=== PATIENT | male | born 1950 | race Caucasian/White ===

== ENCOUNTER 2019-12-04 08:54 | Outpatient (NON) | payer MEDICARE, OTHER, SELFPAY ==
[2019-12-04 23:30] LABS: SARS-CoV-2 RNA PCR Positive
== END 2020-06-13 10:41 | disposition home or self-care (01) ==
PROVIDERS: Visit Provider Family Medicine
DX: U07.1 COVID-19 (principal)
CPT/HCPCS: 87635; C9803; U0003

== ENCOUNTER 2020-01-17 02:33 | Outpatient (CLI) | payer MEDICARE, OTHER, SELFPAY ==
[2020-01-17 16:34] LABS: SARS-CoV-2 RNA PCR Negative
== END 2020-01-17 02:34 | disposition home or self-care (01) ==
LOC: ANHCOVIDDT 02:33
PROVIDERS: PCP Family Medicine; Visit Provider Internal Medicine Gastroenterology
DX: Z01.818 Encounter for other preprocedural examination (principal); Z20.828 Contact with and (suspected) exposure to other viral communicable diseases
CPT/HCPCS: 87635; C9803; U0003

== ENCOUNTER 2020-01-19 00:15 | Day surgery (SDC) | payer MEDICARE, OTHER, SELFPAY ==
--- NOTE | 2020-01-19 08:25 | WPDGICN ---
Assessment and Plan Assessment and plan (1) History of colon polyps: Code(s): Z86.010 - Personal history of colonic polyps Status: Acute Assessment and Plan: Patient is had colon polyps in the past on several occasions. Plan is for follow-up colonoscopy at this time. In that intervals in the future. (2) GERD (gastroesophageal reflux disease): Code(s): K21.9 - Gastro-esophageal reflux disease without esophagitis Status: Acute Assessment and Plan: Patient has a history of nocturnal heartburn. Recently has begun to have dysphagia. Plan is for Protonix 40 mg once daily before meals. Second doses allowed if he has breakthrough heartburn. Follow-up EGD is advised because of dysphagia this will be arranged electively as an outpatient. GI Consult Note Consult date/time: 01/19/20 08:25 HPI: Malik Ann is a 69 year old male seen in evaluation at the request of Dr Tariq Lambert. Patient has had a history of colon polyps in the past. Most recent exam was 6 years ago. Patient's current weight appetite bowel movements are normal. He denies any blood in his stools he has had no abdominal pain is weight has remained stable. Patient does have a history of acid reflux. He mainly gets heartburn often it early in the morning at 4:00 a.m.. He currently takes Protonix 40 mg daily at different times of the day sometimes will take a 2nd 1 for relief of symptoms. He recently has begun to notice difficulty swallowing with both solids and liquids. Occasionally will have significant phlegm production. He denies any weight loss or bleeding Review of Systems Review of Systems: All systems reviewed & are unremarkable except as noted in HPI and below [facility] Past Medical History Medical History COVID-19 Obesity (BMI 30.0-34.9) Social History Social History Smoking packs per day: 2 Smoking cigarettes per day: 40.0 Years smoked: 7 Smoking pack-years: 14.00 Smoking status: Former smoker Tobacco type: cigarettes Smoking end date: 04/28/71 Alcohol intake: current Drinks per week: 6 Substance use: never Living arrangements: with family Gender identity (if verbalized by the patient): Male Spiritual care concerns: No Meds Home Medications and Allergies Home Medications Medication Instructions Recorded Confirmed Type pantoprazole 40 mg tablet,delayed 40 mg PO QAM #90 tablet 04/29/19 01/19/20 Rx release metformin 500 mg tablet,extended 500 mg PO DAILY #90 tablet 06/16/19 01/19/20 Rx release 24 hr lisinopril 10 mg tablet 10 mg PO DAILY #90 tablet 10/04/19 01/19/20 Rx amlodipine 5 mg tablet 5 mg PO DAILY #90 tablet 12/15/19 01/19/20 Rx hydrochlorothiazide 12.5 mg capsule 12.5 mg PO DAILY #90 cap 12/15/19 01/19/20 Rx albuterol sulfate 90 mcg/actuation 2 puff INHALATION Q4H PRN gm 12/24/19 01/19/20 History aerosol inhaler aspirin 81 mg tablet,delayed 81 mg PO DAILY 12/24/19 01/19/20 History release cholecalciferol (vitamin D3) 50 50 mcg PO DAILY 12/24/19 01/19/20 History mcg (2,000 unit) capsule metoprolol succinate 50 mg 100 mg PO DAILY #225 tablet 12/24/19 01/19/20 Rx tablet,extended release 24 hr Allergies Allergy/AdvReac Type Severity Reaction Status Date / Time No Known Allergies Allergy Verified 01/19/20 08:21 Exam Narrative: Exam Narrative: physical exam reveals patient to be alert. Vital signs stable. HEENT exam unremarkable. Lungs are clear to auscultation and percussion. Heart is without murmur or extra sounds. Abdominal exam bowel sounds are present soft nontender with no hepatosplenomegaly. Digital external rectal exam normal.
[2020-01-19 08:28] VITALS: BP 147/67; PULSE 52; RESP 16; TEMP 36.6; O2SAT 100; BMI 32.1
[2020-01-19] MEDS: LACTATED RINGERS 1,000 ML 150 ML IV CONT (08:43)
[2020-01-19 08:46] LABS: Glucose Point of Care 111 (65-105)
--- NOTE | 2020-01-19 08:47 | P.PNAN_ITS ---
Anes - Initial Pre Proc Eval Procedure: Operation Date: 01/19/20 09:00 Proposed Procedures p Screening Colonoscopy - Renaldo Sorensen MD Date/Time: 01/19/20 08:47 Surgeon: Renaldo Sorensen MD Pre Op Diagnosis: Hx Colon Polyps Patient Data Age: 69 Gender: M Height: 5 ft 10 in Weight: 101.6 kg Last Vital Signs Temp 98 F 01/19/20 08:28 Pulse 52 L 01/19/20 08:28 Resp 16 01/19/20 08:28 BP 147/67 H 01/19/20 08:28 Pulse Ox 100 01/19/20 08:28 Allergies Allergy/AdvReac Type Severity Reaction Status Date / Time No Known Allergies Allergy Verified 01/19/20 08:21 Home Medications Medication Instructions Recorded Confirmed Type pantoprazole 40 mg tablet,delayed 40 mg PO QAM #90 tablet 04/29/19 01/19/20 Rx release metformin 500 mg tablet,extended 500 mg PO DAILY #90 tablet 06/16/19 01/19/20 Rx release 24 hr lisinopril 10 mg tablet 10 mg PO DAILY #90 tablet 10/04/19 01/19/20 Rx amlodipine 5 mg tablet 5 mg PO DAILY #90 tablet 12/15/19 01/19/20 Rx hydrochlorothiazide 12.5 mg capsule 12.5 mg PO DAILY #90 cap 12/15/19 01/19/20 Rx albuterol sulfate 90 mcg/actuation 2 puff INHALATION Q4H PRN gm 12/24/19 01/19/20 History aerosol inhaler aspirin 81 mg tablet,delayed 81 mg PO DAILY 12/24/19 01/19/20 History release cholecalciferol (vitamin D3) 50 50 mcg PO DAILY 12/24/19 01/19/20 History mcg (2,000 unit) capsule metoprolol succinate 50 mg 100 mg PO DAILY #225 tablet 12/24/19 01/19/20 Rx tablet,extended release 24 hr Laboratory Tests 01/19/20 08:41 POC Capillary Glucose 111 mg/dl H mg/dl (65-105) Patient hx anesthesia problems: none Family hx anesthesia problems: none PMFSH Past Medical History Medical History (Updated 01/19/20 @ 08:47 by David Nolasco MD) COVID-19 Diabetes Essential (primary) hypertension GERD (gastroesophageal reflux disease) Obesity (BMI 30.0-34.9) Social History Social History Smoking packs per day: 2 Smoking cigarettes per day: 40.0 Years smoked: 7 Smoking pack-years: 14.00 Smoking status: Former smoker Tobacco type: cigarettes Smoking end date: 04/28/71 Alcohol intake: current Drinks per week: 6 Substance use: never Living arrangements: with family Gender identity (if verbalized by the patient): Male Spiritual care concerns: No Anes - Eval Final PreProcedure Day of Procedure 01/19/20 08:47 Patient weight: overweight Heart: regular rate and rhythm Lungs: clear to auscultation Airway: Mallampati scale class II Neurological: alert and oriented Last oral intake: >/= 8 hours ASA classification: III Emergent: no Anesthetic plan: proceed Anesthesia type and monitoring: general GIVS and standard monitoring Informed Consent: The patient's anesthetic plan and its attendant risks and benefits were discussed with the patient/family/POA. Questions were solicited and answers provided to the satisfaction of the patient/family/POA.
[2020-01-19 09:15] VITALS: BP 119/69; PULSE 54; RESP 19; O2SAT 95
[2020-01-19 09:25] VITALS: BP 126/64; PULSE 55; RESP 19; O2SAT 93
[2020-01-19 09:35] VITALS: BP 131/71; PULSE 56; RESP 21; O2SAT 94
== END 2020-01-19 09:41 | disposition home or self-care (01) ==
PROVIDERS: PCP Family Medicine; Visit Provider Internal Medicine Gastroenterology
PROC: 0DJD8ZZ Inspection of Lower Intestinal Tract, Via Natural or Artificial Opening Endoscopic (ICD-10-PCS; CPT 45378; principal; 2020-01-19 09:00)
DX: Z12.11 Encounter for screening for malignant neoplasm of colon (principal); K57.30 Diverticulosis of large intestine without perforation or abscess without bleeding; K64.8 Other hemorrhoids; Z86.010 Personal history of colon polyps; K21.9 Gastro-esophageal reflux disease without esophagitis; E66.9 Obesity, unspecified; Z68.32 Body mass index [BMI] 32.0-32.9, adult; E11.9 Type 2 diabetes mellitus without complications; I10 Essential (primary) hypertension; Z79.84 Long term (current) use of oral hypoglycemic drugs
CPT/HCPCS: G0105; J2001; J2704; J7120

== ENCOUNTER → 2020-08-05 00:54 | Outpatient (CLI) | payer MEDICARE, OTHER, SELFPAY ==
[2020-08-05 18:53] LABS: SARS-CoV-2 RNA PCR Negative
== END ==
PROVIDERS: PCP Family Medicine; Visit Provider Internal Medicine Gastroenterology
DX: Z01.812 Encounter for preprocedural laboratory examination (principal); Z20.822 Contact with and (suspected) exposure to COVID-19
CPT/HCPCS: C9803; U0003; U0005

== ENCOUNTER 2020-08-08 02:19 | Day surgery (SDC) | payer MEDICARE, OTHER, SELFPAY ==
[2020-07-31 13:33] VITALS: BMI 30.9
[2020-08-08 10:13] VITALS: BP 135/63; PULSE 51; RESP 18; TEMP 35.6; O2SAT 98; BMI 34.0
[2020-08-08 10:26] LABS: Glucose Point of Care 99 (65-105)
[2020-08-08] MEDS: LACTATED RINGERS 1,000 ML 150 ML IV CONT (10:29)
--- NOTE | 2020-08-08 10:33 | PM.HPGS ---
History of Present Illness History of Present Illness Consent: Risks, benefits, and alternatives have been discussed and questions answered. Patient agrees to proceed with procedure. Chief complaint: GERD, dysphagia Narrative: Malik Ann is a 70 year old male with long history of acid reflux. Pantoprazole has helped control most of his heartburn but he is he having increasing episodes of regurgitation which results in choking at times. Also he has had dysphagia. This is primarily for liquids where he feels his throat or esophagus suddenly tighten up. Solid food seems to go down fairly well Review of Systems Review of Systems: All systems reviewed & are unremarkable except as noted in HPI and below PMFSH Past Medical History Medical History COVID-19 Diabetes Essential (primary) hypertension GERD (gastroesophageal reflux disease) Obesity (BMI 30.0-34.9) Family History Family History Father Diabetes mellitus Family history of Parkinson's disease Sibling Family history of lupus erythematosus Other Family history of arthritis Family history of chronic obstructive pulmonary disease Social History Social History Smoking packs per day: 2 Smoking cigarettes per day: 40.0 Years smoked: 7 Smoking pack-years: 14.00 Smoking status: Never smoker Tobacco type: cigarettes Smoking end date: 04/28/71 Alcohol intake: current Drinks per week: 10 Substance use: never Living arrangements: with family Gender identity (if verbalized by the patient): Male Spiritual care concerns: No Meds Home Medications and Allergies Home Medications Medication Instructions Recorded Confirmed Type hydrochlorothiazide 12.5 mg capsule 12.5 mg PO DAILY #90 cap 12/15/19 07/31/20 Rx albuterol sulfate 90 mcg/actuation 2 puff INHALATION Q4H PRN gm 12/24/19 07/31/20 History aerosol inhaler aspirin 81 mg tablet,delayed 81 mg PO DAILY 12/24/19 07/31/20 History release cholecalciferol (vitamin D3) 50 50 mcg PO DAILY 12/24/19 07/31/20 History mcg (2,000 unit) capsule metoprolol succinate 50 mg See Rx Instructions .ROUTE 03/03/20 07/31/20 Rx tablet,extended release 24 hr .COMPLEX #225 tablet amlodipine 5 mg tablet See Rx Instructions .ROUTE 06/12/20 07/31/20 Rx .COMPLEX #90 tablet metformin 500 mg tablet,extended 500 mg PO DAILY #90 tablet 06/12/20 07/31/20 Rx release 24 hr lisinopril 10 mg tablet 10 mg PO DAILY #90 tablet 06/22/20 07/31/20 Rx pantoprazole 40 mg tablet,delayed See Rx Instructions .ROUTE 07/10/20 07/31/20 Rx release .COMPLEX #90 tablet Allergies Allergy/AdvReac Type Severity Reaction Status Date / Time No Known Allergies Allergy Verified 08/08/20 10:03 Vital Signs Vital Signs - 24 hr 08/08/20 10:13 Temperature 35.6 C L Pulse Rate 51 L Respiratory Rate 18 Blood Pressure 135/63 Pulse Oximetry 98 Exam Const: General: alert Orientation/consciousness: patient oriented x3 Resp: Auscultation: clear to auscultation bilaterally Cardio: Rhythm: regular rhythm GI: GI Palp: Yes Soft to palpation and No Tenderness to palpation present (GI) Neuro: General: patient oriented x3 Assessment and Plan Assessment and plan (1) GERD (gastroesophageal reflux disease): Code(s): K21.9 - Gastro-esophageal reflux disease without esophagitis Status: Acute Assessment and Plan: EGD with possible biopsy or dilatation or cautery.
--- NOTE | 2020-08-08 10:34 | WPDANESEPPF ---
Anes - Initial Pre Proc Eval Procedure: Operation Date: 08/08/20 11:00 Proposed Procedures p Esophagogastroduodenoscopy - Luis Antonio Taylor MD Date/Time: 08/08/20 10:34 Surgeon: Luis Antonio Taylor MD Pre Op Diagnosis: GERD, dysphagia Patient Data Age: 70 Gender: M Height: 5 ft 10 in Weight: 107.4 kg Last Vital Signs Temp 96.1 F L 08/08/20 10:13 Pulse 51 L 08/08/20 10:13 Resp 18 08/08/20 10:13 BP 135/63 08/08/20 10:13 Pulse Ox 98 08/08/20 10:13 Allergies Allergy/AdvReac Type Severity Reaction Status Date / Time No Known Allergies Allergy Verified 08/08/20 10:03 Home Medications Medication Instructions Recorded Confirmed Type hydrochlorothiazide 12.5 mg capsule 12.5 mg PO DAILY #90 cap 12/15/19 07/31/20 Rx albuterol sulfate 90 mcg/actuation 2 puff INHALATION Q4H PRN gm 12/24/19 07/31/20 History aerosol inhaler aspirin 81 mg tablet,delayed 81 mg PO DAILY 12/24/19 07/31/20 History release cholecalciferol (vitamin D3) 50 50 mcg PO DAILY 12/24/19 07/31/20 History mcg (2,000 unit) capsule metoprolol succinate 50 mg See Rx Instructions .ROUTE 03/03/20 07/31/20 Rx tablet,extended release 24 hr .COMPLEX #225 tablet amlodipine 5 mg tablet See Rx Instructions .ROUTE 06/12/20 07/31/20 Rx .COMPLEX #90 tablet metformin 500 mg tablet,extended 500 mg PO DAILY #90 tablet 06/12/20 07/31/20 Rx release 24 hr lisinopril 10 mg tablet 10 mg PO DAILY #90 tablet 06/22/20 07/31/20 Rx pantoprazole 40 mg tablet,delayed See Rx Instructions .ROUTE 07/10/20 07/31/20 Rx release .COMPLEX #90 tablet Laboratory Tests 08/08/20 10:19 POC Capillary Glucose 99 mg/dl mg/dl (65-105) Patient hx anesthesia problems: none Family hx anesthesia problems: none PMFSH Past Medical History Medical History (Updated 06/12/20 @ 14:02 by Tariq Lambert MD) COVID-19 Diabetes Essential (primary) hypertension GERD (gastroesophageal reflux disease) Obesity (BMI 30.0-34.9) Family History Family History Father Diabetes mellitus Family history of Parkinson's disease Sibling Family history of lupus erythematosus Other Family history of arthritis Family history of chronic obstructive pulmonary disease Social History Social History Smoking packs per day: 2 Smoking cigarettes per day: 40.0 Years smoked: 7 Smoking pack-years: 14.00 Smoking status: Never smoker Tobacco type: cigarettes Smoking end date: 04/28/71 Alcohol intake: current Drinks per week: 10 Substance use: never Living arrangements: with family Gender identity (if verbalized by the patient): Male Spiritual care concerns: No Anes - Eval Final PreProcedure Day of Procedure 08/08/20 10:34 Patient weight: overweight Heart: regular rate and rhythm Lungs: clear to auscultation Airway: Mallampati scale class II Neurological: alert and oriented Last oral intake: >/= 8 hours ASA classification: III Emergent: no Anesthetic plan: proceed Anesthesia type and monitoring: general GIVS and standard monitoring Informed Consent: The patient's anesthetic plan and its attendant risks and benefits were discussed with the patient/family/POA. Questions were solicited and answers provided to the satisfaction of the patient/family/POA.
[2020-08-08 11:23] VITALS: BP 116/51; PULSE 61; RESP 22; O2SAT 90
[2020-08-08 11:33] VITALS: BP 96/58; PULSE 59; RESP 24; O2SAT 93
[2020-08-08 11:43] VITALS: BP 116/59; PULSE 60; RESP 23; O2SAT 90
== END 2020-08-08 12:08 | disposition home or self-care (01) ==
PROVIDERS: PCP Family Medicine; Visit Provider Internal Medicine Gastroenterology
PROC: 0DJ08ZZ Inspection of Upper Intestinal Tract, Via Natural or Artificial Opening Endoscopic (ICD-10-PCS; CPT 43235; principal; 2020-08-08 11:00)
DX: K21.9 Gastro-esophageal reflux disease without esophagitis (principal); K44.9 Diaphragmatic hernia without obstruction or gangrene; K22.5 Diverticulum of esophagus, acquired; K22.2 Esophageal obstruction; I10 Essential (primary) hypertension; E11.9 Type 2 diabetes mellitus without complications; Z86.16 Personal history of COVID-19; E66.9 Obesity, unspecified; Z68.34 Body mass index [BMI] 34.0-34.9, adult; Z87.891 Personal history of nicotine dependence; Z79.51 Long term (current) use of inhaled steroids; Z79.84 Long term (current) use of oral hypoglycemic drugs; Z79.82 Long term (current) use of aspirin
CPT/HCPCS: 43249; 82948; 88305; C1726; J2001; J2704; J7120

== ENCOUNTER → 2022-01-10 08:44 | Outpatient (CLI) | payer MEDICARE, OTHER, SELFPAY ==
--- NOTE | ~2022-01-10 | CT_ITS ---
EXAMINATION: CT pelvis w con INDICATION: Recurrent right inguinal hernia TECHNIQUE: Computed tomographic images of the pelvis were obtained after the administration of 100 cc of Omnipaque 350 intravenous contrast. The dose-length product (DLP) was 777.24 mGy-cm. Automated ex posure control and iterative reconstruction technique were employed. COMPARISON: None available FINDINGS: There are surgical changes in the right lower quadrant from prior hernia repair. There is a right inguinal hernia containing fat and a small volume of ascites. A smaller left inguinal hernia i s present which also contains fat. There are no pathologically enlarged pelvic lymph nodes. No dilate d loops of bowel are evident. Calcified atherosclerosis is noted. Colonic diverticulosis is present w ithout evidence of diverticulitis. There is a small fat-containing umbilical hernia. There is moderat e lumbar spondylosis. A small right hydrocele is noted. IMPRESSION: 1. Right inguinal hernia containing fat and a small volume of ascites. 2. Left inguinal hernia containing fat. 3. Small right hydrocele. Reviewed, dictated and finalized at location B.
[2022-01-10 09:02] LABS: Estimated Glomerular Filt Rate > 60
== END ==
PROVIDERS: Visit Provider Surgery
DX: K40.90 Unilateral inguinal hernia, without obstruction or gangrene, not specified as recurrent (principal); N43.3 Hydrocele, unspecified; M47.816 Spondylosis without myelopathy or radiculopathy, lumbar region
CPT/HCPCS: 72193; Q9967

== ENCOUNTER 2022-02-28 10:52 | Outpatient (CLI) | payer MEDICARE, OTHER, SELFPAY ==
--- NOTE | 2022-02-28 10:59 | ECG_ITS ---
Measurements Intervals [place] Rate: 50 P: -18 [place]: 146 QRS: -18 QRSD: 109 T: -2 QT: 477 QTc: 438 Interpretive Statements SINUS BRADYCARDIA VOLTAGE CRITERIA FOR LVH CANNOT RULE OUT SEPTAL INFARCT, AGE INDETERMINATE BORDERLINE T WAVE ABNORMALITY- INFERIOR LEADS BASELINE ARTIFACT- I, II, III, AVR, AVL ABNORMAL ECG NO PREVIOUS ECG AVAILABLE FOR COMPARISON Electronically Signed On 02-28-2022 11:19:05 CDT by Thony Sandy D.O.
[2022-02-28 11:26] LABS: Basophils Absolute Auto 0.1 K/mm3 (0.0-0.1); Basophils Percent Auto 0.9 % (0.2-1.2); Eosinophils Absolute Auto 0.2 K/mm3 (0-0.3); Eosinophils Percent Auto 3.1 % (0-4.4); Hematocrit 39.7 % (42.0-52.0); Hemoglobin 13.4 g/dL (14.0-18.0); Immature Granulocyte Absolute 0.01 K/mm3 (0.00-0.031); Immature Granulocyte Percent A 0.2 % (0-0.5); Lymphocytes Absolute Auto 2.45 K/mm3 (0.9-3.2); Lymphocytes Percent Auto 41.7 % (18.3-44.2); Mean Corpuscular HGB Conc 33.8 g/dl (32-36); Mean Corpuscular Volume 91.9 fl (80-100); Mean Platelet Volume 9.7 fl (7.4-10.4); Monocytes Absolute Auto 0.5 K/mm3 (0.1-0.6); Monocytes Percent Auto 8.7 % (2.6-8.5); Neutrophils Absolute Auto 2.7 K/mm3 (1.3-6.7); Neutrophils Percent Auto 45.4 % (45.5-73.1); Platelet Count Result 239 k/mm3 (150-375); Red Blood Count 4.32 M/mm3 (4.6-6.20); Red Cell Distribution Width 13.1 % (11.5-14.5); White Blood Count 5.9 K/mm3 (4.5-10.0)
[2022-02-28 11:35] LABS: Alanine Aminotransferase 15 U/L (6-50); Alkaline Phosphatase 59 U/L (38-126); Anion Gap 10 mmol/L (8-16); Aspartate Amino Transferase 21 U/L (17-59); Bilirubin,Total 0.6 mg/dL (0.2-1.3); Blood Urea Nitrogen 24 mg/dL (9-20); Calcium 8.5 mg/dL (8.4-10.2); Carbon Dioxide 29 mmol/L (22-30); Chloride 99 mmol/L (98-107); Estimated Glomerular Filt Rate 60; Glucose 100 mg/dL (65-110); Potassium 3.9 mmol/L (3.4-5.0); Sodium 138 mmol/L (137-145)
== END 2022-02-28 10:53 | disposition home or self-care (01) ==
LOC: ANHSURGERY 10:56
PROVIDERS: PCP Family Medicine; Visit Provider Surgery
DX: K40.91 Unilateral inguinal hernia, without obstruction or gangrene, recurrent (principal); R94.31 Abnormal electrocardiogram [ECG] [EKG]
CPT/HCPCS: 36415; 80053; 85025; 93005

== ENCOUNTER 2022-03-12 00:10 | Day surgery (SDC) | payer MEDICARE, OTHER, SELFPAY ==
[2022-02-28 08:22] VITALS: BMI 30.9
--- NOTE | 2022-02-28 08:45 | PC.NURSE ---
Report to the Outpatient Waiting Room, entrance under the green pavilion located off [facility], at time __10:00AM on date __03/12/22 . Planned Procedure Time: __12:00PM . Time changes happen often and if your time is changed the preop area will call you the afternoon before. - You and your visitor will be asked to self-screen and do not enter if you have any COVID symptoms. - We encourage only one visitor and NO visitors under age 16 are allowed at this time. Your visitor will receive communication by the phone number that is given day of service. - The patient visitor is requested to social distance or may leave the building when not with patient due to restrictions. - A mask is required within the hospital. Patients may have clear liquids (water, carbonated beverages, clear teas, apple juice) until 3 hours prior to surgery with a maximum of 20 ounces. - No food from midnight until time of surgery Take the following medications with a SIP of water the morning of surgery: ___AMLODIPINE, METOPROLOL, ALBUTEROL INHALER NEEDED___ Medications to discontinue per physician HOLD ALL VITAMINS/SUPPLEMENTS 3 DAYS PRE-OP Date to take last dose____03/08/22 Please no make-up, nail luxembourgish, hairspray, perfume, deodorant, or body powder the day of surgery. No jewelry (including any body piercings) or valuables the day of surgery, leave them at home. Please take a shower or bath the night before, or the morning of, surgery with an antibacterial soap. Wear comfortable, loose fitting clothing. Children are encouraged to wear pajamas. - Jewelry must be removed prior to entering the operating room. Rings and piercings that are not removed may be cut off. - The hospital will not accept responsibility for valuables. - Please leave all valuables, including medications, at home the day of surgery. If you are going home after surgery, a licensed dedicated truck driver must drive you home. - NO public transportation without another adult. - We recommend that an adult stay with you for 24 hours following discharge. - We also recommend that you do not drive, make important decision, drink alcoholic beverages, or take any drugs that were not prescribed by your health care provider for at least 24 hours after your discharge time. Follow any additional instructions given to you from your surgeon. *HIBICLENS SHOWER MORNING OF SURGERY If you or anyone in your household have experienced Covid symptoms in the past week, please notify your surgeon or the nurse liaison at the phone number below for possible testing. Telephone instructions given to __PATIENT and asked if any additional questions and then verbalized understanding. Patient advised to call surgeon office or pre surgery nurse liaison [phone] if any additional questions.
--- NOTE | 2022-03-11 13:59 | WPDANESEPPF ---
Anes - Initial Pre Proc Eval Procedure: Operation Date: 03/12/22 12:00 Proposed Procedures p Open Recurrent Right Inguinal Hernia Repair with Mesh - Rodrigo Falcon MD Date/Time: 03/11/22 13:59 Surgeon: Rodrigo Falcon MD Pre Op Diagnosis: recurrent right inguinal hernia Patient Data Age: 71 Gender: M Height: 1.78 m Weight: 98 kg Allergies Allergy/AdvReac Type Severity Reaction Status Date / Time No Known Allergies Allergy Verified 02/28/22 08:18 Home Medications Medication Instructions Recorded Confirmed Type albuterol sulfate 90 mcg/actuation 2 puff inhalation Q4H PRN 12/24/19 03/02/22 History aerosol inhaler Shortness Of Breath aspirin 81 mg tablet,delayed 81 mg PO DAILY 12/24/19 03/02/22 History release (Adult Aspirin Regimen) cholecalciferol (vitamin D3) 50 50 mcg PO DAILY 12/24/19 03/02/22 History mcg (2,000 unit) capsule amlodipine 5 mg tablet See Rx Instructions .Route 06/21/21 03/02/22 Rx .COMPLEX #90 tabs lisinopril 10 mg tablet See Rx Instructions .Route 09/25/21 03/02/22 Rx .COMPLEX #90 tabs pantoprazole 40 mg tablet,delayed See Rx Instructions .Route 10/08/21 03/02/22 Rx release .COMPLEX #90 tabs hydrochlorothiazide 12.5 mg capsule See Rx Instructions .Route 11/08/21 03/02/22 Rx .COMPLEX #90 caps metformin 500 mg tablet,extended See Rx Instructions .Route 11/08/21 03/02/22 Rx release 24 hr .COMPLEX #90 tabs mupirocin 2 % topical ointment See Rx Instructions .Route 02/01/22 03/02/22 Rx .COMPLEX #22 grams metoprolol succinate 50 mg 100 mg PO QAM 02/28/22 02/28/22 History tablet,extended release 24 hr Patient hx anesthesia problems: none Family hx anesthesia problems: none Results Review: All pre-operative results and documents have been reviewed as part of the pre-operative evaluation. [facility] Past Medical History Medical History (Updated 03/11/22 @ 14:00 by Gio Castro MD) Benign familial tremor Cervicalgia COVID-19 Diabetes Essential (primary) hypertension GERD (gastroesophageal reflux disease) Impaired glucose tolerance (oral) Obesity (BMI 30.0-34.9) Other spondylosis, cervical region Unspecified asthma, uncomplicated Surgical History Surgical History S/P inguinal hernia repair Right inguinal hernia repair x2 once as a child, 2016 Family History Family History Father Diabetes mellitus Family history of Parkinson's disease Sibling Family history of lupus erythematosus Other Family history of arthritis Family history of chronic obstructive pulmonary disease Social History Social History Smoking packs per day: 2 Smoking cigarettes per day: 40.0 Years smoked: 5 Smoking pack-years: 10.00 Smoking status: Former smoker Tobacco type: cigarettes Smoking end date: 10/26/72 Alcohol intake: current Drinks per week: 14 Substance use: never Living arrangements: with family Additional living arrangements comments: Gender identity (if verbalized by the patient): Male Spiritual care concerns: No Anes - Eval Final PreProcedure Day of Procedure 03/11/22 13:59 Patient weight: obese Heart: regular rate and rhythm Lungs: clear to auscultation Airway: Mallampati scale class II Neurological: alert and oriented Last oral intake: >/= 8 hours ASA classification: III Emergent: no Anesthetic plan: proceed Anesthesia type and monitoring: general LMA and standard monitoring Results Review: All pre-operative results and documents have been reviewed as part of the pre-operative evaluation. Informed Consent: The patient's anesthetic plan and its attendant risks and benefits were discussed with the patient/family/POA. Questions were solicited and answers provided to the satisfaction of the patient/family/POA.
[2022-03-12] VITALS (9 sets, daily range): BP systolic 109–145; BP diastolic 48–63; PULSE 51–64; RESP 12–16; TEMP 36.3; O2SAT 93–97
[2022-03-12] MEDS: KETOROLAC 15 MG/ML VIAL (*BKC) IV PUSH (10:30)
[2022-03-12] MEDS: LACTATED RINGERS 1,000 ML 30 ML IV CONT ×3 (10:30→16:08)
[2022-03-12] MEDS: ACETAMINOPHEN 500 MG TABLET 1000 MG PO (10:30)
[2022-03-12 10:48] LABS: Glucose Point of Care 102 mg/dl (65-105)
--- NOTE | 2022-03-12 11:58 | WPDHPUPDATE1 ---
History and Physical Update Update Date/Time: 03/12/22 11:58 History and Physical has been reviewed, including an updated exam of the patient. There are NO changes in the patient's condition. Risks, benefits, and alternatives have been discussed and questions answered. Patient agrees to proceed with procedure.
[2022-03-12] MEDS: ceFAZolin 2 GM/D5W 50 ML 2 GM/50 ML BAG IVPB (12:16)
[2022-03-12] MEDS: BUPIVACAINE/EPINEPHRINE 0.25% 50 ML VIAL 30 ML INFILTRATE (12:16)
--- NOTE | 2022-03-12 14:44 | W.PM.PROC2 ---
Procedure Note - Detailed Date of Procedure 03/12/22 Pre-op Diagnosis recurrent right inguinal hernia Post-op Diagnosis Other (Recurrent indirect right inguinal hernia with lipoma of the cord) Procedure Performed Open recurrent Right inguinal hernia repair with mesh Surgeon Rodrigo Falcon MD Chin Strap Cutter [facility], OR 1st assist Anesthesia General Indications Earlier this year patient began having bulging and then eventually pain in the right groin approximately now 6 years status post robotic right inguinal hernia repair with mesh. CT scan revealed recurrent right inguinal hernia with fat bulging into the inguinal canal. Findings On exploration of the right groin after careful exposure of the external & internal ring a fairly large lipoma the cord was found attached to a small to medium size indirect inguinal hernia sac that was suture ligated at the level of the internal ring. Description of Procedure The patient was placed in the supine position on the operating room table. After induction of adequate general endotracheal anesthesia by [facility] Anesthesia staff, we carefully prepped the entire lower abdomen with chlorhexidine and scrotum and penis with Betadine. One sterile towel was placed underneath the scrotum. Four towels were placed around the right lower quadrant. Following this, a time-out was performed with the surgical team and the patient's surgical procedure site was confirmed. I then carefully outlined a curvilinear incision in the right groin area and a curvilinear incision was made after introducing some local anesthetic, using 0.25% Marcaine with epinephrine as both an ilioinguinal nerve block and at the incision site with a 25 gauge needle. Following this, I carefully made the incision, and carried it down through the subcutaneous tissue. Miracle's fascia was incised and then we identified the external oblique aponeurosis and the external ring. Following this, the same local anesthetic was infiltrated underneath the external oblique aponeurosis and this was split in the direction of it's fibers with a #15 blade initially and then using Metzenbaum scissors. I then opened the external oblique through the external ring and incised this somewhat posteriorly and superiorly exposing the ilioinguinal nerve. This nerve was carefully preserved laterally and then I carefully and meticulously dissected out the cord structures at the level of the pubic tubercle. I then surrounded these structures at the level of pubic tubercle and placed a 1/2 Britney drain around them. I then carefully dissected the hernia sac up and off of the cord tissues, and brought it up and out of the incision. We carefully dissected the layers and cremasteric tissues off the hernia sac and this included dissecting a fairly large lipoma of the cord away from the cord structures and the sac itself. Then eventually I opened the hernia sac. Holding this up with 4 hemostats, I carefully dissected it off the cord structures, being careful to avoid injury to the Pampiniform plexus veins, the spermatic artery and the vas. Once the hernia sac was carefully dissected back to the level of the internal ring, a suture ligation with a pursestring suture of 2-0 silk was used to close the neck of the hernia sac and following this, a 2 - 0 silk tie was placed just below this ligature, tied tight, and This gave a double high ligation of the indirect sac. Then distally the hernia sac was amputated with Bovie cautery. It was then passed off the field Along with portions of the large lipoma of the cord for pathologic evaluation. Following this, we took care to recreate an appropriate inguinal canal. This was done by carefully dissecting from the internal ring down to the pubic bone, and dissecting away any cremasteric tissue. A running suture of 0 Prolene was placed in the pubic tubercle and run up to the internal ring, approximating the Transversalis fascia to the
[2022-03-12 15:12] LABS: Glucose Point of Care 116 mg/dl (65-105)
--- NOTE | 2022-03-12 16:10 | SUR.PHASEII ---
DR. BARRIGA HERE TO SEE PT.
--- NOTE | 2022-03-12 17:07 | SUR.PHASEII ---
1650 PATIENT STATES HE HAD A PRETTY NORMAL STREAM VOID.
--- NOTE | 2022-03-12 17:28 | SUR.PHASEII ---
4939 DISCHARGE INSTRUCTIONS REVIEWED OVER THE PHONE WITH PATIENT AND SPOUSE; SPOUSE WROTE THEM DOWN.
== END 2022-03-12 17:00 | disposition home or self-care (01) ==
PROVIDERS: PCP Family Medicine; Visit Provider Surgery
PROC: (CPT 49520; principal; 2022-03-12 12:00)
DX: K40.91 Unilateral inguinal hernia, without obstruction or gangrene, recurrent (principal); D17.6 Benign lipomatous neoplasm of spermatic cord; I10 Essential (primary) hypertension; E11.9 Type 2 diabetes mellitus without complications; K21.9 Gastro-esophageal reflux disease without esophagitis; G25.0 Essential tremor; J45.909 Unspecified asthma, uncomplicated; E66.9 Obesity, unspecified; Z68.30 Body mass index [BMI] 30.0-30.9, adult; Z87.891 Personal history of nicotine dependence; Z79.51 Long term (current) use of inhaled steroids; Z79.82 Long term (current) use of aspirin; Z79.84 Long term (current) use of oral hypoglycemic drugs
CPT/HCPCS: 49520; 82948; 88302; A9270; C1781; J0690; J1100; J1885; J2250; J2405; J2704; J3010; J7120

== ENCOUNTER 2022-12-16 01:50 | Day surgery (SDC) | payer MEDICARE, OTHER, SELFPAY ==
[2022-11-27 13:52] VITALS: BMI 28.8
--- NOTE | 2022-12-15 19:00 | PM.HPGS ---
History of Present Illness History of Present Illness Consent: Risks, benefits, and alternatives have been discussed and questions answered. Patient agrees to proceed with procedure. Chief complaint: GERD Narrative: Floyd Ann is a 72 year old male with dysphagia. 2 years ago he had dilatation of stricture up to 19 mm.He was also found to have several large pseudo-diverticula of the esophagus. Review of Systems Review of Systems: All systems reviewed & are unremarkable except as noted in HPI and below PMFSH Past Medical History Medical History Abdominal pain Benign esophageal stricture Benign familial tremor Cervicalgia Colon cancer screening COVID-19 Diabetes Diverticula of colon Dysphagia Esophageal diverticulum Essential (primary) hypertension GERD (gastroesophageal reflux disease) Impaired glucose tolerance (oral) Obesity (BMI 30.0-34.9) Other spondylosis, cervical region Pelvic ascites Superficial bruising of abdominal wall Umbilical hernia Unspecified asthma, uncomplicated Surgical History Surgical History History of inguinal hernia repair 03/12/2022 - open recurrent right inguinal hernia repair with mesh S/P inguinal hernia repair Right inguinal hernia repair x2 once as a child, 2016 Family History Family History Father Diabetes mellitus Family history of Parkinson's disease Sibling Family history of lupus erythematosus Other Family history of arthritis Family history of chronic obstructive pulmonary disease Social History Social History Smoking packs per day: 2 Smoking cigarettes per day: 40.0 Years smoked: 5 Smoking pack-years: 10.00 Smoking status: Former smoker Tobacco type: cigarettes Smoking end date: 10/26/72 Alcohol intake: current Drinks per week: 2 Substance use: never Substance use type: does not use Lack of Transportation: No Lack of Food: Never True Current Housing: I Have Housing Concerned About Future Housing: No Difficulty Paying Gas/Electric Bills: No Difficulty Paying for Meds: No Currently Unemployed: No Education: Bachelor's Degree Difficulty w/ Childcare or Family Care: No Living arrangements: with family Additional living arrangements comments: Gender identity (if verbalized by the patient): Male Spiritual care concerns: No Meds Home Medications and Allergies Home Medications Medication Instructions Recorded Confirmed Type aspirin 81 mg tablet,delayed 81 mg PO DAILY 12/24/19 12/16/22 History release (Adult Aspirin Regimen) cholecalciferol (vitamin D3) 50 50 mcg PO DAILY 12/24/19 12/16/22 History mcg (2,000 unit) capsule metoprolol succinate 50 mg 100 mg PO QAM 02/28/22 12/16/22 History tablet,extended release 24 hr amlodipine 5 mg tablet 5 mg PO DAILY #90 tabs 09/24/22 12/16/22 Rx pantoprazole 40 mg tablet,delayed 40 mg PO BID #180 tabs 09/24/22 12/16/22 Rx release hydrochlorothiazide 12.5 mg capsule 12.5 mg PO DAILY 11/27/22 12/16/22 History lisinopril 10 mg tablet 10 mg PO DAILY 11/27/22 12/16/22 History metformin 500 mg tablet,extended 500 mg PO DAILY 11/27/22 12/16/22 History release 24 hr Allergies Allergy/AdvReac Type Severity Reaction Status Date / Time No Known Allergies Allergy Verified 12/16/22 08:16 Exam Const: General: alert Orientation/consciousness: patient oriented x3 Resp: Auscultation: clear to auscultation bilaterally Cardio: Rhythm: regular rhythm GI: GI Palp: Yes Soft to palpation and No Tenderness to palpation present (GI) Neuro: General: patient oriented x3 Assessment and Plan Assessment and plan (1) Dysphagia: Code(s): R13.10 - Dysphagia, unspecified Status: Acute Assessment and Plan: EGD with
[2022-12-16 08:17] VITALS: BP 136/65; PULSE 50; RESP 16; TEMP 36.2; O2SAT 97; BMI 29.1
[2022-12-16] MEDS: LACTATED RINGERS 1,000 ML 150 ML IV CONT (08:30)
--- NOTE | 2022-12-16 08:49 | WPDANESEPPF ---
Anes - Initial Pre Proc Eval Procedure: Operation Date: 12/16/22 09:30 Proposed Procedures p Esophagogastroduodenoscopy - Luis Antonio Taylor MD Date/Time: 12/16/22 08:49 Surgeon: Luis Antonio Taylor MD Pre Op Diagnosis: GERD Patient Data Age: 72 Gender: M Height: 1.78 m Weight: 92.1 kg Last Vital Signs Temp 36.2 C L 12/16/22 08:17 Pulse 50 L 12/16/22 08:17 Resp 16 12/16/22 08:17 BP 136/65 12/16/22 08:17 Pulse Ox 97 12/16/22 08:17 O2 Del Method Room Air 12/16/22 08:17 Allergies Allergy/AdvReac Type Severity Reaction Status Date / Time No Known Allergies Allergy Verified 12/16/22 08:16 Home Medications Medication Instructions Recorded Confirmed Type aspirin 81 mg tablet,delayed 81 mg PO DAILY 12/24/19 12/16/22 History release (Adult Aspirin Regimen) cholecalciferol (vitamin D3) 50 50 mcg PO DAILY 12/24/19 12/16/22 History mcg (2,000 unit) capsule metoprolol succinate 50 mg 100 mg PO QAM 02/28/22 12/16/22 History tablet,extended release 24 hr amlodipine 5 mg tablet 5 mg PO DAILY #90 tabs 09/24/22 12/16/22 Rx pantoprazole 40 mg tablet,delayed 40 mg PO BID #180 tabs 09/24/22 12/16/22 Rx release hydrochlorothiazide 12.5 mg capsule 12.5 mg PO DAILY 11/27/22 12/16/22 History lisinopril 10 mg tablet 10 mg PO DAILY 11/27/22 12/16/22 History metformin 500 mg tablet,extended 500 mg PO DAILY 11/27/22 12/16/22 History release 24 hr Patient hx anesthesia problems: none Family hx anesthesia problems: none Results Review: All pre-operative results and documents have been reviewed as part of the pre-operative evaluation. [facility] Past Medical History Medical History Abdominal pain Benign esophageal stricture Benign familial tremor Cervicalgia Colon cancer screening COVID-19 Diabetes Diverticula of colon Dysphagia Esophageal diverticulum Essential (primary) hypertension GERD (gastroesophageal reflux disease) Impaired glucose tolerance (oral) Obesity (BMI 30.0-34.9) Other spondylosis, cervical region Pelvic ascites Superficial bruising of abdominal wall Umbilical hernia Unspecified asthma, uncomplicated Surgical History Surgical History History of inguinal hernia repair 03/12/2022 - open recurrent right inguinal hernia repair with mesh S/P inguinal hernia repair Right inguinal hernia repair x2 once as a child, 2016 Family History Family History Father Diabetes mellitus Family history of Parkinson's disease Sibling Family history of lupus erythematosus Other Family history of arthritis Family history of chronic obstructive pulmonary disease Social History Social History Smoking packs per day: 2 Smoking cigarettes per day: 40.0 Years smoked: 5 Smoking pack-years: 10.00 Smoking status: Former smoker Tobacco type: cigarettes Smoking end date: 10/26/72 Alcohol intake: current Drinks per week: 2 Substance use: never Substance use type: does not use Lack of Transportation: No Lack of Food: Never True Current Housing: I Have Housing Concerned About Future Housing: No Difficulty Paying Gas/Electric Bills: No Difficulty Paying for Meds: No Currently Unemployed: No Education: Bachelor's Degree Difficulty w/ Childcare or Family Care: No Living arrangements: with family Additional living arrangements comments: Gender identity (if verbalized by the patient): Male Spiritual care concerns: No Anes - Eval Final PreProcedure Day of Procedure 12/16/22 08:49 Patient weight: overweight Heart: regular rate and rhythm Lungs: clear to auscultation Airway: Mallampati scale class II Neurological: alert and oriented Last oral intake: >/= 8 hours ASA classification: III Emergent: no Anesthetic
[2022-12-16 09:44] VITALS: BP 107/64; PULSE 51; RESP 18; O2SAT 93
[2022-12-16 09:54] VITALS: BP 114/67; PULSE 53; RESP 19; O2SAT 95
[2022-12-16 10:04] VITALS: BP 127/65; PULSE 50; RESP 19; O2SAT 94
[2022-12-17 14:09] LABS: Glucose Point of Care 104 mg/dl (65-105)
== END 2022-12-16 10:15 | disposition home or self-care (01) ==
PROVIDERS: PCP Family Medicine; Visit Provider Internal Medicine Gastroenterology
PROC: 0DJ08ZZ Inspection of Upper Intestinal Tract, Via Natural or Artificial Opening Endoscopic (ICD-10-PCS; CPT 43235; principal; 2022-12-16 09:30)
DX: K22.5 Diverticulum of esophagus, acquired (principal); K22.2 Esophageal obstruction; K44.9 Diaphragmatic hernia without obstruction or gangrene; K29.70 Gastritis, unspecified, without bleeding; K21.9 Gastro-esophageal reflux disease without esophagitis; I10 Essential (primary) hypertension; E11.9 Type 2 diabetes mellitus without complications; J45.909 Unspecified asthma, uncomplicated; Z87.891 Personal history of nicotine dependence; Z79.82 Long term (current) use of aspirin; Z79.84 Long term (current) use of oral hypoglycemic drugs
CPT/HCPCS: 43249; 43239; 82948; 87081; C1726; J2704; J7120

== ENCOUNTER 2023-09-25 09:52 | Emergency (ER) | payer MEDICARE, OTHER, SELFPAY ==
--- NOTE | 2023-09-25 09:54 | ED.URI ---
HPI - URI/Sore Throat General Chief Complaint: Upper Respiratory Infection Stated Complaint: Nose Bleeds and Head Congestion Time Seen by Provider: 09/25/23 09:54 Source: patient Mode of arrival: ambulatory Limitations: no limitations History of Present Illness HPI Narrative: Floyd is a 73-year-old male patient presenting to the clinic today with complaints head congestion and having nose bleeds. He reports symptoms have been going on for 1 week. Reports he is having clear nasal drainage but has had to nosebleed from the head congestion. Denies any fever or chills. States he does feel some pressure over his sinuses. MD elicited complaint: nasal congestion and sinus pain Related Data Home Medications Medication Instructions Recorded Confirmed aspirin 81 mg tablet,delayed 81 mg PO DAILY 12/24/19 09/25/23 release (Adult Aspirin Regimen) cholecalciferol (vitamin D3) 50 50 mcg PO DAILY 12/24/19 09/25/23 mcg (2,000 unit) capsule Allergies Allergy/AdvReac Type Severity Reaction Status Date / Time No Known Allergies Allergy Verified 09/25/23 10:13 Review of Systems Review of Systems: Pertinent positives per HPI. Patient denies any fever, chills, rash, visual changes, dizziness, cough, shortness of breath, chest pain, palpitations, nausea, vomiting, diarrhea, constipation, abdominal pain, or any urinary issues. [facility] Past Medical History Medical History Abdominal pain Benign esophageal stricture Benign familial tremor Cervicalgia Colon cancer screening COVID-19 Diabetes Diverticula of colon Dysphagia Esophageal diverticulum Essential (primary) hypertension GERD (gastroesophageal reflux disease) History of esophageal dilatation Impaired glucose tolerance (oral) Obesity (BMI 30.0-34.9) Other spondylosis, cervical region Pelvic ascites Superficial bruising of abdominal wall Umbilical hernia Unspecified asthma, uncomplicated Surgical History Surgical History History of esophageal hernia repair History of inguinal hernia repair 03/12/2022 - open recurrent right inguinal hernia repair with mesh S/P inguinal hernia repair Right inguinal hernia repair x2 once as a child, 2016 Family History Family History Father Diabetes mellitus Family history of Parkinson's disease Sibling Family history of lupus erythematosus Other Family history of arthritis Family history of chronic obstructive pulmonary disease Social History Social History Smoking packs per day: 2 Smoking cigarettes per day: 40.0 Years smoked: 5 Smoking pack-years: 10.00 Smoking status: Former smoker Tobacco type: cigarettes Smoking end date: 10/26/72 Alcohol intake: current Drinks per week: 2 Substance use: never Substance use type: does not use Lack of Transportation: No Lack of Food: Never True Current Housing: I Have Housing Concerned About Future Housing: No Difficulty Paying Gas/Electric Bills: No Difficulty Paying for Meds: No Currently Unemployed: No Education: Bachelor's Degree Difficulty w/ Childcare or Family Care: No Living arrangements: with family Additional living arrangements comments: Gender identity (if verbalized by the patient): Male Spiritual care concerns: No Comments At the time of my signature, I reviewed and agree with the nursing past medical, surgical, social, and family history. There is no relevant family history pertinent to the patient complaint. Exam Narrative: General: Well-developed, well nourished, in no apparent distress Head: Normocephalic, atraumatic Eyes: Pupils equally round and reactive to light bilaterally, EOM intact, sclera and conjunctive clear, no discharge, lids normal Ears: TMs intact
[2023-09-25 10:00] VITALS: BP 126/66; PULSE 50; RESP 16; TEMP 36.7; O2SAT 99
== END 2023-09-25 10:11 | disposition home or self-care (01) ==
PROVIDERS: Emergency Provider Nurse Practitioner Family; PCP Family Medicine
DX: J06.9 Acute upper respiratory infection, unspecified (principal); Z87.891 Personal history of nicotine dependence; E11.9 Type 2 diabetes mellitus without complications; I10 Essential (primary) hypertension; K21.9 Gastro-esophageal reflux disease without esophagitis; E66.9 Obesity, unspecified; Z68.29 Body mass index [BMI] 29.0-29.9, adult; M47.892 Other spondylosis, cervical region; Z79.82 Long term (current) use of aspirin
CPT/HCPCS: 99213; G0463

== ENCOUNTER 2023-12-01 08:12 | Outpatient (CLI) | payer MEDICARE, OTHER, SELFPAY ==
[2023-12-01 08:53] LABS: Anion Gap 8 mmol/L (4-12); Blood Urea Nitrogen 26 mg/dL (9-20); Calcium 9.2 mg/dL (8.4-10.2); Carbon Dioxide 29 mmol/L (22-30); Chloride 103 mmol/L (98-107); Estimated Glomerular Filt Rate > 60; Glucose 107 mg/dL (65-110); Sodium 140 mmol/L (137-145)
== END 2023-12-01 08:13 | disposition home or self-care (01) ==
LOC: ANHSURGERY 08:16
PROVIDERS: Anesthesiology; PCP Family Medicine; Visit Provider Otolaryngology
DX: E11.9 Type 2 diabetes mellitus without complications (principal); Z01.818 Encounter for other preprocedural examination
CPT/HCPCS: 36415; 80048

== ENCOUNTER 2023-12-02 02:16 | Day surgery (SDC) | payer MEDICARE, OTHER, SELFPAY ==
[2023-11-28 08:57] VITALS: BMI 29.6
--- NOTE | 2023-11-28 08:58 | PC.NURSE ---
Report to the Outpatient Waiting Room, entrance under the green pavilion located off [facility], at time _0730_ on date _[id number]_. Planned Procedure Time: _0930_. Time changes happen often and if your time is changed the preop area will call you the afternoon before. - You and your visitor will be asked to self-screen and do not enter if you have any COVID symptoms. - A mask is optional within the hospital at this time. Patients may have clear liquids (water, carbonated beverages, clear teas, apple juice) until 3 hours prior to surgery with a maximum of 20 ounces. - No food from midnight until time of surgery Take the following medications with a SIP of water the morning of surgery: ____Metoprolol and Amlodipine DO NOT STOP ANY OF YOUR OTHER PRESCRIPTION MEDICATIONS PRIOR TO SURGERY ?EXCEPT THE FOLLOWING Medications to discontinue per physician vitamin D Date to take last ywft____[id number] Xjsvoak stopped Aspirin 11-27-2023 Please no make-up, nail yakut, hairspray, perfume, deodorant, or body powder the day of surgery. No jewelry (including any body piercings) or valuables the day of surgery, leave them at home. Please take a shower or bath the night before, or the morning of, surgery with an antibacterial soap. Wear comfortable, loose fitting clothing. - Jewelry must be removed prior to entering the operating room. Rings and piercings that are not removed may be cut off. - The hospital will not accept responsibility for valuables. - Please leave all valuables, including medications, at home the day of surgery. If you are going home after surgery, a licensed furniture mover driver must drive you home. - NO public transportation without another adult if you receive anesthesia. - We recommend that an adult stay with you for 24 hours following discharge. - We also recommend that you do not drive, make important decision, drink alcoholic beverages, or take any drugs that were not prescribed by your health care provider for at least 24 hours after your discharge time. Follow any additional instructions given to you from your surgeon. If you or anyone in your household have experienced Covid symptoms in the past week, please notify your surgeon or the nurse liaison at the phone number below for possible testing. Telephone instructions given to __Fred___and asked if any additional questions and then verbalized understanding. Patient advised to call surgeon office or pre surgery nurse liaison [phone] if any additional questions.
--- NOTE | 2023-12-01 14:54 | PM.IMHP ---
H&P: HPI History of Present Illness Date/Time: 12/01/23 14:54 Chief Complaint: ear fullness cerumen impactions bilaterally epistaxis Narrative: planned procedure Review of Systems Review of Systems: All systems reviewed & are unremarkable except as noted in HPI and below [facility] Past Medical History Medical History Abdominal pain Benign esophageal stricture Benign familial tremor Cervicalgia Colon cancer screening COVID-19 Diabetes Diverticula of colon Dysphagia Esophageal diverticulum Essential (primary) hypertension GERD (gastroesophageal reflux disease) History of esophageal dilatation Impaired glucose tolerance (oral) Obesity (BMI 30.0-34.9) Other spondylosis, cervical region Pelvic ascites Superficial bruising of abdominal wall Umbilical hernia Unspecified asthma, uncomplicated Surgical History Surgical History History of esophageal hernia repair History of inguinal hernia repair 03/12/2022 - open recurrent right inguinal hernia repair with mesh S/P inguinal hernia repair Right inguinal hernia repair x2 once as a child, 2016 Family History Family History Father Diabetes mellitus Family history of Parkinson's disease Sibling Family history of lupus erythematosus Other Family history of arthritis Family history of chronic obstructive pulmonary disease Social History Social History Smoking packs per day: 2 Smoking cigarettes per day: 40.0 Years smoked: 5 Smoking pack-years: 10.00 Smoking status: Never smoker Tobacco type: cigarettes Smoking end date: 10/26/72 Alcohol intake: current Drinks per week: 5 Substance use: never Substance use type: does not use Lack of Transportation: No Lack of Food: Never True Current Housing: I Have Housing Concerned About Future Housing: No Difficulty Paying Gas/Electric Bills: No Difficulty Paying for Meds: No Currently Unemployed: No Education: Bachelor's Degree Difficulty w/ Childcare or Family Care: No Living arrangements: with family Additional living arrangements comments: Gender identity (if verbalized by the patient): Male Spiritual care concerns: No Meds Home Medications and Allergies Home Medications Medication Instructions Recorded Confirmed Type aspirin 81 mg tablet,delayed 81 mg PO DAILY 12/24/19 11/28/23 History release (Adult Aspirin Regimen) cholecalciferol (vitamin D3) 50 50 mcg PO DAILY 12/24/19 11/28/23 History mcg (2,000 unit) capsule hydrochlorothiazide 12.5 mg capsule 12.5 mg PO DAILY #90 caps 07/29/23 11/28/23 Rx metformin 500 mg tablet,extended 500 mg PO DAILY #90 tabs 07/29/23 11/28/23 Rx release 24 hr metoprolol succinate 50 mg 50 mg PO QAM #90 tabs 08/13/23 11/28/23 Rx tablet,extended release 24 hr amlodipine 5 mg tablet 5 mg PO DAILY #90 tabs 09/10/23 11/28/23 Rx lisinopril 10 mg tablet 10 mg PO DAILY #90 tabs 09/10/23 11/28/23 Rx pantoprazole 40 mg tablet,delayed See Rx Instructions .Route 09/10/23 11/28/23 Rx release .COMPLEX #180 tabs Allergies Allergy/AdvReac Type Severity Reaction Status Date / Time No Known Allergies Allergy Verified 11/28/23 08:51 Exam Narrative: cerumen bilaterally telangiectatic vessels in the nose Assessment and Plan Assessment and plan (1) Nasal lesion: Code(s): J34.89 - Other specified disorders of nose and nasal sinuses Status: Acute Assessment and Plan: plan OR nasal endoscopy excisional biopsy of nasal lesion and nasal cautery as well as bilateral cerumen removal. Risks were discussed bleeding infection damage to surrounding structures CSF leak brain brain damage change in vision septal perforation failure to resolve symptoms postopera
[2023-12-02] VITALS (9 sets, daily range): BP systolic 99–147; BP diastolic 45–61; PULSE 48–54; RESP 12–16; TEMP 36.4–36.7; O2SAT 97–100
--- NOTE | 2023-12-02 07:37 | WPDHPUPDATE1 ---
History and Physical Update Update Date/Time: 12/02/23 07:37 History and Physical has been reviewed, including an updated exam of the patient. There are NO changes in the patient's condition. Risks, benefits, and alternatives have been discussed and questions answered. Patient agrees to proceed with procedure.
[2023-12-02 07:54] LABS: Glucose Point of Care 89 mg/dl (65-105)
[2023-12-02] MEDS: LACTATED RINGERS 1,000 ML 30 ML IV CONT ×2 (08:15→10:50)
--- NOTE | 2023-12-02 09:36 | WPDANESEPPF ---
Anes - Initial Pre Proc Eval Procedure: Operation Date: 12/02/23 09:30 Proposed Procedures p Bilateral Nasal Endoscopy with Complex Cautery, Excisional Biopsy Left Nasal Lesion - David Slaughter MD s Bilateral Cerumen Removal - David Slaughter MD Date/Time: 12/02/23 09:36 Surgeon: David Slaughter MD Pre Op Diagnosis: Epitaxis, Nasal Septal Lesion,( 2cm) Cerumen Patient Data Age: 73 Gender: M Height: 1.78 m Weight: 94.4 kg Last Vital Signs Temp 36.7 C 12/02/23 08:00 Pulse 54 L 12/02/23 08:00 Resp 14 12/02/23 08:00 BP 147/61 H 12/02/23 08:00 Pulse Ox 98 12/02/23 08:00 O2 Del Method Room Air 12/02/23 08:00 Allergies Allergy/AdvReac Type Severity Reaction Status Date / Time No Known Allergies Allergy Verified 11/28/23 08:51 Home Medications Medication Instructions Recorded Confirmed Type aspirin 81 mg tablet,delayed 81 mg PO DAILY 12/24/19 11/28/23 History release (Adult Aspirin Regimen) cholecalciferol (vitamin D3) 50 50 mcg PO DAILY 12/24/19 11/28/23 History mcg (2,000 unit) capsule hydrochlorothiazide 12.5 mg capsule 12.5 mg PO DAILY #90 caps 07/29/23 11/28/23 Rx metformin 500 mg tablet,extended 500 mg PO DAILY #90 tabs 07/29/23 11/28/23 Rx release 24 hr metoprolol succinate 50 mg 50 mg PO QAM #90 tabs 08/13/23 11/28/23 Rx tablet,extended release 24 hr amlodipine 5 mg tablet 5 mg PO DAILY #90 tabs 09/10/23 11/28/23 Rx lisinopril 10 mg tablet 10 mg PO DAILY #90 tabs 09/10/23 11/28/23 Rx pantoprazole 40 mg tablet,delayed See Rx Instructions .Route 09/10/23 11/28/23 Rx release .COMPLEX #180 tabs Laboratory Tests 12/02/23 07:51 POC Capillary Glucose 89 mg/dl (65-105) Patient hx anesthesia problems: none Family hx anesthesia problems: none Results Review: All pre-operative results and documents have been reviewed as part of the pre-operative evaluation. PMFSH Past Medical History Medical History Abdominal pain Benign esophageal stricture Benign familial tremor Cervicalgia Colon cancer screening COVID-19 Diabetes Diverticula of colon Dysphagia Esophageal diverticulum Essential (primary) hypertension GERD (gastroesophageal reflux disease) History of esophageal dilatation Impaired glucose tolerance (oral) Obesity (BMI 30.0-34.9) Other spondylosis, cervical region Pelvic ascites Superficial bruising of abdominal wall Umbilical hernia Unspecified asthma, uncomplicated Surgical History Surgical History History of esophageal hernia repair History of inguinal hernia repair 03/12/2022 - open recurrent right inguinal hernia repair with mesh S/P inguinal hernia repair Right inguinal hernia repair x2 once as a child, 2015 Family History Family History Father Diabetes mellitus Family history of Parkinson's disease Sibling Family history of lupus erythematosus Other Family history of arthritis Family history of chronic obstructive pulmonary disease Social History Social History Smoking packs per day: 2 Smoking cigarettes per day: 40.0 Years smoked: 5 Smoking pack-years: 10.00 Smoking status: Never smoker Tobacco type: cigarettes Smoking end date: 10/26/72 Alcohol intake: current Drinks per week: 5 Substance use: never Substance use type: does not use Lack of Transportation: No Lack of Food: Never True Current Housing: I Have Housing Concerned About Future Housing: No Difficulty Paying Gas/Electric Bills: No Difficulty Paying for Meds: No Currently Unemployed: No Education: Bachelor's Degree Difficulty w/ Childcare or Family Care: No Living arrangements: with family Additional living arrangements comments: Gender identity (if verbalized by the patient): Derek
[2023-12-02] MEDS: LIDO 1%/EPINEPHRINE 1:100,000 50 ML VIAL INFILTRATE (09:48)
[2023-12-02] MEDS: OXYMETAZOLINE HCL 0.05% NAS 15 ML BTL (*BKC) 1 SPRAY NASAL (09:49)
--- NOTE | 2023-12-02 11:10 | SUR.PHASEI ---
Simple mask removed at 1110.
[2023-12-02 11:29] LABS: Glucose Point of Care 100 mg/dl (65-105)
--- NOTE | 2023-12-02 13:36 | W.PM.PROC2 ---
Procedure Note - Detailed Date of Procedure 12/02/23 Pre-op Diagnosis Epitaxis, Nasal Septal Lesion,( 2cm) Cerumen Post-op Diagnosis Same Procedure Performed Biopsy of left nasal lesion, nasal endoscopy, cautery of left sided nasal passage for epistaxis Surgeon David Slaughter MD Anesthesia General Indications see above Findings kind of swollen edematous vascular tissue biopsied and cauterized those source of the patient's bleeding from the left nasal passage. Minimal blood loss 5 cc. Description of Procedure Patient identified consent verified preop. Patient brought operating. Time-out performed. General anesthesia induced endotracheal tube secured. Patient prepped draped position procedure confirmed 2nd time-out performed. Left-sided described above several 2nd several cm abnormal tissue. This was biopsied and cauterized with bipolar not bipolar with Bovie suction electrocautery setting of 10 in 15 and the hell is a were time thinking of needle tip protected Bovie setting of 10. No no bleeding which was not under control. All the abnormal tissue was removed which is excellent. Again this is he will await final pathology. Total blood loss 5 cc. Patient tolerated the procedure well no complications care the patient given back to Anesthesiology. I performed all dictated portions of procedure. Estimated Blood Loss 5 Drains No Packing No Pathology Yes Complications No immediate complications Condition Stable Disposition PACU [facility] Billing Surgery - Charge Forward: Surgery Billing
== END 2023-12-02 12:11 | disposition home or self-care (01) ==
PROVIDERS: PCP Family Medicine; Visit Provider Otolaryngology
PROC: (CPT 31238; principal; 2023-12-02 09:30)
PROC: (CPT 92502; 2023-12-02 09:30)
DX: R04.0 Epistaxis (principal); D18.09 Hemangioma of other sites; E11.9 Type 2 diabetes mellitus without complications; I10 Essential (primary) hypertension; K21.9 Gastro-esophageal reflux disease without esophagitis; J45.909 Unspecified asthma, uncomplicated; Z87.891 Personal history of nicotine dependence; Z79.82 Long term (current) use of aspirin; Z79.84 Long term (current) use of oral hypoglycemic drugs
CPT/HCPCS: 31238; 82948; 88305; A9270; J0330; J1100; J1200; J2405; J2704; J3010; J7120

== ENCOUNTER 2024-08-24 09:24 | Emergency (ER) | payer MEDICARE, OTHER, SELFPAY ==
--- NOTE | ~2024-08-24 | XR_ITS ---
XR abdomen/kub 1V Ordering provider: Clau Tomas NP History: . Left Flank pain . Comparison: None. FINDINGS: BOWEL: Nonobstructive bowel gas pattern. ORGANOMEGALY: None. SIGNIFICANT PATHOLOGIC CALCIFICATIONS: Calcifications seen in the suprapubic area which may be urinar y bladder stone. Clinical correlation and follow-up advised OTHER: No free air is seen under the diaphragm. IMPRESSION: NO ACUTE ABDOMINAL FINDINGS. Possible urinary bladder stone. Reviewed, dictated and finalized at location A.
[2024-08-24 09:34] VITALS: BP 123/58; PULSE 64; RESP 16; TEMP 36.6; O2SAT 99
--- NOTE | 2024-08-24 09:37 | ED.ABDPAIN ---
HPI - Abdominal Pain General Chief Complaint: Abdominal Pain Stated Complaint: STOMACH PAIN/HEADACHE Time Seen by Provider: 08/24/24 09:45 Source: patient and RN notes reviewed Mode of arrival: ambulatory Limitations: no limitations History of Present Illness HPI narrative: 74-year-old male presents with concern for right lower quadrant abdominal pain for 3 days. She reports pain was worse yesterday and is improving today. Reports he did have some right flank pain as well. Reports that is now gone. He reports nausea without vomiting. He denies diarrhea or bloody stools. He denies constipation. He reports history of hernias with mesh repair, GERD, diverticuli. He denies fever, body aches, chills, sweats. Reports headache MD elicited complaint: abdominal pain Related Data Home Medications ?Medication ?Instructions ?Recorded ?Confirmed ?Last Taken ?Type aspirin 81 mg tablet,delayed 81 mg PO DAILY 12/24/19 07/28/24 11/27/23 History release (Adult Aspirin Regimen) cholecalciferol (vitamin D3) 50 50 mcg PO DAILY 12/24/19 07/28/24 08/07/20 History mcg (2,000 unit) capsule Allergies Allergy/AdvReac Type Severity Reaction Status Date / Time No Known Allergies Allergy Verified 08/24/24 09:45 Review of Systems Review of Systems: CONSTITUTIONAL: Denies malaise, chills, sweats, or fever. ENT: Denies rhinorrhea, congestion, sinus pain, otalgia or sore throat. CARDIOVASCULAR: Denies chest pain, palpitations, or edema. RESPIRATORY: Denies cough or dyspnea. GASTROINTESTINAL: Reports right lower quadrant abdominal pain. Denies nausea, vomiting, diarrhea, bloody, or mucous stools. GENITOURINARY: Denies dysuria or hematuria. MUSCULOSKELETAL: Denies myalgia. NEUROLOGIC: Denies headache. All systems reviewed & are unremarkable except as noted in HPI and below PMFSH Past Medical History Medical History Dilatation of esophagus History of esophageal dilatation Dysphagia Pelvic ascites Umbilical hernia Colon cancer screening Diverticula of colon Benign esophageal stricture Esophageal diverticulum Abdominal pain Superficial bruising of abdominal wall Benign familial tremor Cervicalgia Diabetes GERD (gastroesophageal reflux disease) Obesity (BMI 30.0-34.9) COVID-19 Essential (primary) hypertension Impaired glucose tolerance (oral) Other spondylosis, cervical region Unspecified asthma, uncomplicated Surgical History Surgical History Hx of KORINA History of esophageal hernia repair History of inguinal hernia repair 03/12/2022 - open recurrent right inguinal hernia repair with mesh S/P inguinal hernia repair Right inguinal hernia repair x2 once as a child, 2016 Family History Family History Father Diabetes mellitus Family history of Parkinson's disease Sibling Family history of lupus erythematosus Other Family history of arthritis Family history of chronic obstructive pulmonary disease Social History Social History Smoking packs per day: 2 Smoking cigarettes per day: 40.0 Years smoked: 5 Smoking pack-years: 10.00 Smoking status: Never smoker Tobacco type: cigarettes Smoking end date: 10/26/72 Alcohol intake: current Drinks per week: 5 Substance use: never Substance use type: does not use Lack of Transportation: No Lack of Food: Never True Current Housing: I Have Housing Concerned About Future Housing: No Difficulty Paying Gas/Electric Bills: No Difficulty Paying for Meds: No Currently Unemployed: No Education: Bachelor's Degree Difficulty w/ Childcare or Family Care: No Living arrangements: with family Additional living arrangements comments: Gender identity (if verbalized by the patient): Male Spiritual care concerns: No Comments At time of signature, agree with nursing past medical, surgical, social and family history. There is no relevant family history pertinent to the presenting complaint Exam Narrative: GENERAL: Well-appearing, well-nourished, and in no acute distress. HEAD: Normocephalic, atraumatic. EYES: PERRLA, conjunctivae clear, and EOMI. ENT: Nares clear, turbinates pink, no rhinorrhea or epistaxis. Mucous membranes moist. Oropharynx without edema, erythema, or lesions. Tonsils not enlarged and without exudate. NECK: Supple. No lymphadenopathy CHEST: Speaks in full sentences. No respiratory distress. HEART: Regular rate and rhythm. ABDOMEN: Soft, flat, nondistended. Mild right lower quadrant tenderness. No guarding, rebound tenderness, or rigidity. No pulsatile masses. Bowel sounds present in all four quadrants. No organomegaly. Negative Carolina?s sign. No periumbilical tenderness. No Supra public tenderness or distension. Good femoral pulses bilaterally. No hernia noted. No scars or surface trauma. SKIN: Warm, dry, no rash. NEURO: Alert and oriented x3. PSYCH: Normal mood and affect Course Course Emergency Course: Patient is aware of diagnosis, understands and agrees to treatment plan. Anticipatory guidance given. Patient agrees to follow-up as directed and is aware of reasons to seek care at the emergency department. Portions of this record may have been created with voice recognition software Level of Care: [facility] Visit Vital Signs Vital signs: Vital Signs Temperature 98 F 08/24/24 09:34 Pulse Rate 64 08/24/24 09:34 Respiratory Rate 16 08/24/24 09:34 Blood Pressure 123/58 L 08/24/24 09:34 Pulse Oximetry 99 08/24/24 09:34 Temperature 98 F 08/24/24 09:34 Pulse Rate 64 08/24/24 09:34 Respiratory Rate 16 08/24/24 09:34 Blood Pressure 123/58 L 08/24/24 09:34 Pulse Oximetry 99 08/24/24 09:34 Reviewed. MDM - Abdominal Pain MDM Narrative Medical decision making narrative: Facilitated a follow-up with patient's primary care doctor, he has appointment at 2:00 p.m. today. I evaluated this patient in the [facility]. History is obtained from patient who is an independent historian and physical exam was performed.? Available medical records were reviewed. ? Exam findings and relevant testing show no acute concerns or changes; patient is non-toxic appearing and is in no distress. ? Differential diagnosis and treatment plan were discussed with the patient. Patient agrees with discussion and after shared medical decision making agrees with plan of care. All questions were answered to the patient's satisfaction. Patient is appropriate for outpatient treatment and follow-up. Differential Diagnosis Differential diagnosis: Likely abdominal pain Critical Care Time Critical Care Time Critical Care Time: No Discharge Plan Discharge Clinical Impression: Abdominal pain in male Patient Disposition: Home Condition: Stable Instructions: Abdominal Pain (ED) Additional Instructions: 1) Please follow-up with your primary care doctor, your own appointment today to o'clock. 2) If you have any worsening of symptoms or any other urgent concerns please go to the ER. Patient Language: Somali Prescriptions: No Action aspirin [Adult Aspirin Regimen] 81 mg tablet,delayed release (/EC) 81 mg PO DAILY cholecalciferol (vitamin D3) 50 mcg (2,000 unit) capsule 50 mcg PO DAILY metoprolol succinate 50 mg tablet extended release 24 hr 50 mg PO QAM Qty: 90 3RF pantoprazole 40 mg tablet,delayed release (DR/EC) See Rx Instructions .ROUTE .COMPLEX Qty: 180 3RF Dose Instruction: 40 MG ORALLY TWICE A DAY Rx Instructions: 40 MG ORALLY TWICE A DAY amlodipine 5 mg tablet 5 mg PO DAILY Qty: 90 0RF Rx Instructions: LAST REFILL NEEDS, APPOINTMENT metformin 500 mg tablet extended release 24 hr 500 mg PO DAILY Qty: 90 0RF Rx Instructions: TAKE 1 TABLET BY MOUTH EVERY DAY IN AM hydrochlorothiazide 12.5 mg capsule 12.5 mg PO DAILY Qty: 90 0RF lisinopril 10 mg tablet 10 mg PO DAILY Qty: 90 0RF Follow-up/Referrals: Tariq Lambert MD [Primary Care Provider] - 1 Day (Abdominal pain) Time of Disposition: 10:27
[2024-08-24 10:00] LABS: EDUAAPPEAR Clear; EDUABILI Negative (Negative); EDUABLOOD Trace (Negative); EDUACOLOR1 Yellow; EDUAGLUCOSE Negative (Negative); EDUAKETONE Negative (Negative); EDUALEUKO Negative (Negative); EDUANITRATE Negative (Negative); EDUAPH 6.5; EDUAPROTEIN Negative (Negative)
== END 2024-08-24 10:28 | disposition home or self-care (01) ==
PROVIDERS: Emergency Provider Nurse Practitioner; PCP Family Medicine
DX: R10.31 Right lower quadrant pain (principal); Z87.891 Personal history of nicotine dependence; E11.9 Type 2 diabetes mellitus without complications; Z79.84 Long term (current) use of oral hypoglycemic drugs; I10 Essential (primary) hypertension; K21.9 Gastro-esophageal reflux disease without esophagitis; E66.9 Obesity, unspecified; Z68.29 Body mass index [BMI] 29.0-29.9, adult; J45.909 Unspecified asthma, uncomplicated; Z86.16 Personal history of COVID-19; Z79.82 Long term (current) use of aspirin
CPT/HCPCS: 74018; 81003; 99213; G0463

== ENCOUNTER 2024-08-24 15:02 | Outpatient (CLI) | payer MEDICARE, OTHER, SELFPAY ==
--- NOTE | ~2024-08-24 | CT_ITS ---
CT abdomen pelvis wo con Ordering provider: TA Ruby History: 74 years Male with . Unspecified abdominal pain, right side . Comparison: January 10, 2022 Technique: CT abdomen and pelvis without IV and without oral contrast. Automated exposure control and iterative reconstruction technique were employed. The dose-length product was 1046.89 mGy-cm. Findings: VISUALIZED LOWER CHEST: Normal. UPPER ABDOMINAL ORGANS: Liver: Normal. Gallbladder: Normal. Spleen: Normal. Calcified granulomas. Stomach/duodenum: Sliding hiatus hernia. Pancreas: Normal. Adrenals: Normal. Kidneys: 1.5 cm soft tissue density in the right kidney lower pole most likely a cyst. Small hypodens e lesion seen in the left kidney upper pole most likely hemorrhagic cyst. Ultrasound evaluation advis ed. Bilateral PELVIC ORGANS: The bladder is underfilled with thickened wall. Evaluation for cystitis advised. BOWEL AND MESENTERY: Colon: No evidence of diverticulitis. Thickened appendix with surrounding fat stranding and minimal f luid is seen suggestive of appendicitis. The appendix measures 1.2 cm. Small Bowel: Normal. No obstruction. Peritoneum/mesentery: No free air or free fluid. No mesenteric lymphadenopathy. RETROPERITONEUM: Mild atheromatous disease of the abdominal aorta. No retroperitoneal lymphadenopat hy. MUSCULOSKELETAL: Superficial soft tissues: Left fat-containing inguinal hernia. Small fat-containing umbilical hernia. Otherwise, The superficial soft tissues are normal. Bones: Age appropriate degenerative changes of the spine. Ossification seen near to the right femoral neck IMPRESSION: 1. Acute appendicitis with surrounding minimal fluid. No free air to suggest perforation.. Clinical correlation advised. 2. Sliding hiatus hernia. Fat-containing left inguinal hernia. Small fat-containing umbilical hernia . Physician: TA Ruby Was notified with the result of the patient at 3:43 PM on August 24, 2024. Reviewed, dictated and finalized at location A. IMPRESSION: 1. Acute appendicitis with surrounding minimal fluid. No free air to suggest p erforation.. Clinical correlation advised. 2. Sliding hiatus hernia. Fat-containing left inguinal hernia. Small fat-conta ining umbilical hernia. Physician: TA Ruby Was notified with the result of the patient at 3:43 PM on August 24, 2024.
== END 2024-08-24 15:03 | disposition home or self-care (01) ==
LOC: GOSHIMG 15:02
PROVIDERS: PCP Family Medicine; Visit Provider Nurse Practitioner Family
DX: K44.9 Diaphragmatic hernia without obstruction or gangrene (principal); K40.90 Unilateral inguinal hernia, without obstruction or gangrene, not specified as recurrent; K35.80 Unspecified acute appendicitis
CPT/HCPCS: 74176

== ENCOUNTER 2024-08-24 16:41 | Inpatient (IN) | payer MEDICARE, OTHER, SELFPAY ==
[2024-08-24 16:44] VITALS: BP 131/55; PULSE 71; RESP 18; TEMP 36.7; O2SAT 98
--- NOTE | 2024-08-24 17:05 | ED_ITS ---
HPI - Abdominal Pain General Chief Complaint: Abdominal Pain <Cheri Hutchins PA-C - Last Filed: 08/24/24 19:08> Stated Complaint: Abd pain-sent by Dr Lambert, poss appendicitis <Cheri Hutchins PA-C - Last Filed: 08/24/24 19:08> Time Seen by Provider: 08/24/24 17:05 <Cheri Hutchins PA-C - Last Filed: 08/24/24 19:08> Focused HPI: This is a 74 year old male that presents to the ER for abdominal pain. Reports pain started two days ago. Pain in the right lower quadrant. He had an outpatient CT scan today which showed acute appendicitis. Was prompted to be seen in the ER. Denies fever, vomiting. GENERAL: Well-appearing, well-nourished, and in no acute distress. HEAD: Normocephalic, atraumatic. CHEST: Clear to auscultation. ?No respiratory distress. HEART: Regular rate and rhythm.? NEURO: ?Alert and oriented x3. Patient screened in triage and initial orders placed.? ?Additional care and disposition to be based upon?diagnostic testing and treatment. <Cheri Hutchins PA-C - Last Filed: 08/24/24 19:08> Related Data Home Medications: Home Medications ?Medication ?Instructions ?Recorded ?Confirmed ?Last Taken ?Type aspirin 81 mg tablet,delayed 81 mg PO DAILY 12/24/19 08/24/24 11/27/23 History release (Adult Aspirin Regimen) cholecalciferol (vitamin D3) 50 50 mcg PO DAILY 12/24/19 08/24/24 08/07/20 History mcg (2,000 unit) capsule <Cheri Hutchins PA-C - Last Filed: 08/24/24 19:08> Allergies/Adverse Reactions: Allergies Allergy/AdvReac Type Severity Reaction Status Date / Time No Known Allergies Allergy Verified 08/24/24 16:50 <VICTOR HUGO Hoff Last Filed: 08/24/24 19:08> Review of Systems 2 Review of Systems: All systems reviewed & are unremarkable except as noted in HPI and below <VICTOR HUGO Hoff Last Filed: 08/24/24 19:08> PMFSH Past Medical History Medical History: Medical History Dilatation of esophagus History of esophageal dilatation Dysphagia Pelvic ascites Umbilical hernia Colon cancer screening Diverticula of colon Benign esophageal stricture Esophageal diverticulum Abdominal pain Superficial bruising of abdominal wall Benign familial tremor Cervicalgia Diabetes GERD (gastroesophageal reflux disease) Obesity (BMI 30.0-34.9) COVID-19 Essential (primary) hypertension Impaired glucose tolerance (oral) Other spondylosis, cervical region Unspecified asthma, uncomplicated <Cheri Hutchins PA-C - Last Filed: 08/24/24 19:08> Surgical History Surgical History: Surgical History Hx of LASIK History of esophageal hernia repair History of inguinal hernia repair 03/12/2022 - open recurrent right inguinal hernia repair with mesh S/P inguinal hernia repair Right inguinal hernia repair x2 once as a child, 2015 <Cheri Hutchins PA-C - Last Filed: 08/24/24 19:08> Family History Family History: Family History Father Diabetes mellitus Family history of Parkinson's disease Sibling Family history of lupus erythematosus Other Family history of arthritis Family history of chronic obstructive pulmonary disease <Cheri Hutchins PA-C - Last Filed: 08/24/24 19:08> Social History Social History: Social History Smoking packs per day: 2 Smoking cigarettes per day: 40.0 Years smoked: 5 Smoking pack-years: 10.00 Smoking status: Never smoker Tobacco type: cigarettes Smoking end date: 10/26/72 Alcohol intake: current Drinks per week: 5 Substance use: never Substance use type: does not use Lack of Transportation: No Lack of Food: Never True Current Housing: I Have Housing Concerned About Future Housing: No Difficulty Paying Gas/Electric Bills: No Difficulty Paying for Meds: No Currently Unemployed: No Education: Bachelor's Degree Difficulty w/ Childcare or Family Care: No Living arrangements: with family Additional living arrangements comments: Gender identity (if verbalized by the patient): Male Spiritual care concerns: No <Cheri Hutchins PA-C - Last Filed: 08/24/24 19:08> Exam 2 Narrative: GENERAL: Well-appearing, well-nourished, and in no acute distress. HEAD: Normocephalic, atraumatic. EYES: EOMI. CHEST: Clear to auscultation. No respiratory distress. No wheezes rales or rhonchi HEART: Regular rate and rhythm. No murmur heard. Normal peripheral pulses. ABDOMEN: Soft, nondistended, normal active bowel sounds. Tender to palpation in the right lower quadrant, without guarding EXTREMITIES: Normal range of motion. No edema. SKIN: Warm, dry, no rash. NEURO: No focal deficits. Alert and oriented x3. PSYCH: Normal mood and affect <Cheri Hutchins PA-C - Last Filed: 08/24/24 19:08> Course Course Emergency Course: patient and family updated on workup and need for admission <Cheri Hutchins PA-C - Last Filed: 08/24/24 19:08> BINDER SELECTOR/PA Physician Supervision This visit was performed by both a physician and an APC. I performed all aspects of the MDM as documented. <Bruno Monte MD - Last Filed: 08/24/24 19:16> Consultations Consultation #1: spoke with hospitalist about patient and workup who accepts admission < Cheri Hutchins PA-C - Last Filed: 08/24/24 19:08> Date: 08/24/24 <Cheri Hutchins PA-C - Last Filed: 08/24/24 19:08> Consultation #2: Spoke with General surgery who will consult <Cheri Hutchins PA-C - Last Filed: 08/24/24 19:08> Date: 08/24/24 <VICTOR HUGO Hoff Last Filed: 08/24/24 19:08> Vital Signs Vital signs: Vital Signs Temperature 98.1 F 08/24/24 16:44 Pulse Rate 71 08/24/24 16:44 Respiratory Rate 18 08/24/24 16:44 Blood Pressure 131/55 L 08/24/24 16:44 Pulse Oximetry 98 08/24/24 16:44 Oxygen Delivery Room Air 08/24/24 16:44 Temperature 98.1 F 08/24/24 16:44 Pulse Rate 71 08/24/24 16:44 Respiratory Rate 18 08/24/24 16:44 Blood Pressure 131/55 L 08/24/24 16:44 Pulse Oximetry 98 08/24/24 16:44 Oxygen Delivery Room Air 08/24/24 16:44 <Cheri Hutchins PA-C - Last Filed: 08/24/24 19:08> Vital Signs Temperature 98.1 F 08/24/24 16:44 Pulse Rate 71 08/24/24 16:44 Respiratory Rate 18 08/24/24 16:44 Blood Pressure 131/55 L 08/24/24 16:44 Pulse Oximetry 98 08/24/24 16:44 Oxygen Delivery Room Air 08/24/24 16:44 Temperature 98.1 F 08/24/24 16:44 Pulse Rate 71 08/24/24 16:44 Respiratory Rate 18 08/24/24 16:44 Blood Pressure 131/55 L 08/24/24 16:44 Pulse Oximetry 98 08/24/24 16:44 Oxygen Delivery Room Air 08/24/24 16:44 <Bruno Monte MD - Last Filed: 08/24/24 19:16> MDM - Abdominal Pain MDM Narrative Medical decision making narrative: Patient presents to the emergency department for right lower quadrant abdominal pain. Had outpatient CT scan showing acute appendicitis. Patient is afebrile and nontoxic appearing. Cbc without leukocytosis. Metabolic panel normal appearing kidney function. Patient started on IV antibiotics. General surgery consulted. Will be admitted for further management <Cheri Hutchins PA-C - Last Filed: 08/24/24 19:08> Differential Diagnosis Differential diagnosis: Likely acute appendicitis and calculus of kidney <Cheri Hutchins PA-C - Last Filed: 08/24/24 19:08> Lab Data Attestation: I reviewed the patient's lab results. <Cheri Hutchins PA-C - Last Filed: 08/24/24 19:08> Result diagrams: 08/24/24 17:25 08/24/24 17:25 <Cheri Hutchins PA-C - Last Filed: 08/24/24 19:08> Labs: Lab Results 08/24/24 08/24/24 Range/Units 17:25 17:30 WBC 8.2 (4.5-10.0) K/mm3 RBC 4.46 L (4.6-6.20) M/mm3 Hgb 13.3 L (14.0-18.0) g/dL Hct 41.5 L (42.0-52.0) % MCV 93.0 (80-100) fl MCH 29.8 (26-34) pg MCHC 32.0 (32-36) g/dl RDW 13.8 (11.5-14.5) % Plt Count 207 (150-375) k/mm3 MPV 9.7 (7.4-10.4) fl Immature Gran % (Auto) 0.1 (0-0.5) % Neut % (Auto) 67.8 (45.5-73.1) % Lymph % (Auto) 22.7 (18.3-44.2) % [place] % (Auto) 8.3 (2.6-8.5) % Eos % (Auto) 0.7 (0-4.4) % Baso % (Auto) 0.4 (0.2-1.2) % Lymph # (Auto) 1.87 (0.9-3.2) K/mm3 [place] # (Auto) 0.7 H (0.1-0.6) K/mm3 Eos # (Auto) 0.1 (0-0.3) K/mm3 Baso # (Auto) 0.0 (0.0-0.1) K/mm3 Abs Immat Gran (auto) 0.01 (0.00-0.031) K/mm3 Absolute Neuts (auto) 5.6 (1.3-6.7) K/mm3 Absolute Nucleated RBC 0.000 (0.0-0.012) K/mm3 Nucleated RBC % 0.0 (0.0-0.2) % Sodium 140 (137-145) mmol/L Potassium 3.9 (3.4-5.0) mmol/L Chloride 104 (98-107) mmol/L Carbon Dioxide 28 (22-30) mmol/L Anion Gap 8 (4-12) mmol/L BUN 19 (9-20) mg/dL Creatinine 0.99 (0.7-1.3) mg/dL Estim Creat Clear Calc 67 ml/min Estimated GFR > 60 (59 - ) Glucose 95 (65-110) mg/dL Calcium 8.8 (8.4-10.2) mg/dL Total Bilirubin 1.2 (0.2-1.3) mg/dL AST 22 (17-59) U/L ALT 16 (6-50) U/L Alkaline Phosphatase 62 (38-126) U/L Total Protein 7.0 (6.3-8.2) g/dL Albumin 3.9 (3.5-5.1) g/dL Lipase 44 (23-300) U/L Urine Color Dark yellow (Yellow) Urine Appearance Clear (Clear) Urine pH 5.5 (5.0-9.0) Ur Specific [place] 1.026 (1.001-1.035) Urine Protein Trace (Negative) mg/dL Urine Glucose (UA) Negative (Negative) mg/dL Urine Ketones Trace H (Negative) mg/dL Ur Blood (Man) Negative (Negative) Urine Nitrate Negative (Negative) Urine Bilirubin 1+ H (Negative) Urine Urobilinogen 1.0 (<2.0) mg/dL Leukocyte Esterase Rfl Trace H (Negative) SHOLA/UL Urine RBC 0-2 (0-2) /hpf Urine WBC 0-5 (0-3) /hpf Ur Squamous Epith Cells None seen (Few) /hpf Urine Bacteria None seen /hpf Urine Casts 0-2 <Cheri Hutchins PA-C - Last Filed: 08/24/24 19:08> Lab Results 08/24/24 08/24/24 Range/Units 17:25 17:30 WBC 8.2 (4.5-10.0) K/mm3 RBC 4.46 L (4.6-6.20) M/mm3 Hgb 13.3 L (14.0-18.0) g/dL Hct 41.5 L (42.0-52.0) % MCV 93.0 (80-100) fl MCH 29.8 (26-34) pg MCHC 32.0 (32-36) g/dl RDW 13.8 (11.5-14.5) % Plt Count 207 (150-375) k/mm3 MPV 9.7 (7.4-10.4) fl Immature Gran % (Auto) 0.1 (0-0.5) % Neut % (Auto) 67.8 (45.5-73.1) % Lymph % (Auto) 22.7 (18.3-44.2) % [place] % (Auto) 8.3 (2.6-8.5) % Eos % (Auto) 0.7 (0-4.4) % Baso % (Auto) 0.4 (0.2-1.2) % Lymph # (Auto) 1.87 (0.9-3.2) K/mm3 [place] # (Auto) 0.7 H (0.1-0.6) K/mm3 Eos # (Auto) 0.1 (0-0.3) K/mm3 Baso # (Auto) 0.0 (0.0-0.1) K/mm3 Abs Immat Gran (auto) 0.01 (0.00-0.031) K/mm3 Absolute Neuts (auto) 5.6 (1.3-6.7) K/mm3 Absolute Nucleated RBC 0.000 (0.0-0.012) K/mm3 Nucleated RBC % 0.0 (0.0-0.2) % Sodium 140 (137-145) mmol/L Potassium 3.9 (3.4-5.0) mmol/L Chloride 104 (98-107) mmol/L Carbon Dioxide 28 (22-30) mmol/L Anion Gap 8 (4-12) mmol/L BUN 19 (9-20) mg/dL Creatinine 0.99 (0.7-1.3) mg/dL Estim Creat Clear Calc 67 ml/min Estimated GFR > 60 (59 - ) Glucose 95 (65-110) mg/dL Calcium 8.8 (8.4-10.2) mg/dL Total Bilirubin 1.2 (0.2-1.3) mg/dL AST 22 (17-59) U/L ALT 16 (6-50) U/L Alkaline Phosphatase 62 (38-126) U/L Total Protein 7.0 (6.3-8.2) g/dL Albumin 3.9 (3.5-5.1) g/dL Lipase 44 (23-300) U/L Urine Color Dark yellow (Yellow) Urine Appearance Clear (Clear) Urine pH 5.5 (5.0-9.0) Ur Specific [place] 1.026 (1.001-1.035) Urine Protein Trace (Negative) mg/dL Urine Glucose (UA) Negative (Negative) mg/dL Urine Ketones Trace H (Negative) mg/dL Ur Blood (Man) Negative (Negative) Urine Nitrate Negative (Negative) Urine Bilirubin 1+ H (Negative) Urine Urobilinogen 1.0 (<2.0) mg/dL Leukocyte Esterase Rfl Trace H (Negative) SHOAL/UL Urine RBC 0-2 (0-2) /hpf Urine WBC 0-5 (0-3) /hpf Ur Squamous Epith Cells None seen (Few) /hpf Urine Bacteria None seen /hpf Urine Casts 0-2 <Bruno Monte MD - Last Filed: 08/24/24 19:16> Imaging Data Radiologist's impression: CT abdomen/pelvis with contrast: 1. Acute appendicitis with surrounding minimal fluid. No free air to suggest perforation. Clinical correlation advised. 2. Sliding hiatus hernia. Fat-containing left inguinal hernia. Small fat- containing umbilical hernia. <Cheri Hutchins PA-C - Last Filed: 08/24/24 19:08> Critical Care Time Critical Care Time Critical Care Time: No <VICTOR HUGO Hoff Last Filed: 08/24/24 19:08> Discharge Plan Discharge Clinical Impression: Acute appendicitis Qualifiers: Acute appendicitis type: with localized peritonitis Appendicitis gangrene presence: without gangrene Appendicitis perforation presence: without perforation Appendicitis abscess presence: without abscess Qualified Code(s): K 35.30 - Acute appendicitis with localized peritonitis, without perforation or gangrene <Cheri Hutchins PA-C - Last Filed: 08/24/24 19:08> Patient Disposition: Still a Patient <VICTOR HUGO Hoff Last Filed: 08/24/24 19:08> Condition: Stable <VICTOR HUGO Hoff Last Filed: 08/24/24 19:08> Instructions: Antibiotic Form <VICTOR HUGO Hoff Last Filed: 08/24/24 19:08> Patient Language: Frisian <VICTOR HUGO Hoff Last Filed: 08/24/24 19:08> Prescriptions: No Action aspirin [Adult Aspirin Regimen] 81 mg tablet,delayed release (DR/EC) 81 mg PO DAILY cholecalciferol (vitamin D3) 50 mcg (2,000 unit) capsule 50 mcg PO DAILY metoprolol succinate 50 mg tablet extended release 24 hr 50 mg PO QAM Qty: 90 3RF tamsulosin 0.4 mg capsule 0.4 mg PO DAILY Qty: 7 0RF pantoprazole 40 mg tablet,delayed release (DR/EC) See Rx Instructions .ROUTE .COMPLEX Qty: 180 3RF Dose Instruction: 40 MG ORALLY TWICE A DAY Rx Instructions: 40 MG ORALLY TWICE A DAY amlodipine 5 mg tablet 5 mg PO DAILY Qty: 90 0RF Rx Instructions: LAST REFILL NEEDS, APPOINTMENT metformin 500 mg tablet extended release 24 hr 500 mg PO DAILY Qty: 90 0RF Rx Instructions: TAKE 1 TABLET BY MOUTH EVERY DAY IN AM hydrochlorothiazide 12.5 mg capsule 12.5 mg PO DAILY Qty: 90 0RF lisinopril 10 mg tablet 10 mg PO DAILY Qty: 90 0RF <Cheri Hutchins PA-C - Last Filed: 08/24/24 19:08> Follow-up/Referrals: Tariq Lambert MD [Primary Care Provider] - <Cheri Hutchins PA-C - Last Filed: 08/24/24 19:08>
[2024-08-24 17:31] LABS: Basophils Percent Auto 0.4 % (0.2-1.2); Eosinophils Absolute Auto 0.1 K/mm3 (0-0.3); Eosinophils Percent Auto 0.7 % (0-4.4); Hematocrit 41.5 % (42.0-52.0); Hemoglobin 13.3 g/dL (14.0-18.0); Immature Granulocyte Absolute 0.01 K/mm3 (0.00-0.031); Immature Granulocyte Percent A 0.1 % (0-0.5); Lymphocytes Absolute Auto 1.87 K/mm3 (0.9-3.2); Lymphocytes Percent Auto 22.7 % (18.3-44.2); Mean Corpuscular Hemoglobin 29.8 pg (26-34); Mean Platelet Volume 9.7 fl (7.4-10.4); Monocytes Absolute Auto 0.7 K/mm3 (0.1-0.6); Monocytes Percent Auto 8.3 % (2.6-8.5); Neutrophils Absolute Auto 5.6 K/mm3 (1.3-6.7); Neutrophils Percent Auto 67.8 % (45.5-73.1); Platelet Count Result 207 k/mm3 (150-375); Red Blood Count 4.46 M/mm3 (4.6-6.20); Red Cell Distribution Width 13.8 % (11.5-14.5); White Blood Count 8.2 K/mm3 (4.5-10.0)
--- OUTSIDE RECORDS SUMMARY | 2024-08-24 17:35 | XMS_ITS | Continuity of Care Document ---
Author Organization [facility] Address [address] [place] [address] [place] [address] Phone Care Team Providers Care Batch Mixer Operator Name Role Phone [facility] Unavailable Unavail able Unavailable Unavailable Unavailable Advance Directives Directive Yes / No Effective Date File Name No Information Encounters Encounter Description Practice Location Reason(s) For Visit Diagnoses Date Provider Providers Copied on Encounter [facility], [address] [place] [address] [address], [place], [place], [id number], [place] tel:[phone] [facility] No Information [facility] [address] [facility], [address], [place], [place], [id number] , [place]. tel:[phone] Referring Provider: [address] [place], [address]. tel:[phone] Family History Family Member Type Diagnosis Age At Onset No Information Payers Payer name Insurance type Covered green party ID Authoriza tion(s) No Information Social [...]
--- OUTSIDE RECORDS SUMMARY | 2024-08-24 17:35 | XMS_ITS | Referral Summary ---
Author Organization [facility] Address Formerly [facility] [place] [address] Care Team Providers Care Air Dispatcher Name Role Phone Tariq Lambert MD Primary Care Provider [phone] Rekha Espinosa NP Unavailable [phone] Luis Antonio Taylor MD Unavailable [phone] Diego Christine MD Unavailable [phone] Encounters Date Type Department Care Team Description 08/02/2024 Telephone [id number] [place] [address] Referral, Self Appointment Time from Last 3 Months Allergies No known active allergies Medications metoprolol XL (TOPROL-XL) 50 mg extended release tablet Take 2 tablets (100 mg total) by mouth daily 02/02/2023 Active lisinopriL (PRINIVIL,ZESTR IL) 10 mg tablet TAKE ONE TABLET BY MOUTH DAILY IN THE MORNING 01/03/2023 Active amLODIPine (NORVASC) 5 mg tablet Take 1 tablet (5 mg total) by mouth daily 01/25/2023 Active metFORMIN XR (GLUCOPHAGE XR) 500 mg 24 hr tablet Take 1 tablet (500 mg total) by mouth daily 01/25/2023 Active hydroCHLOROthia zide (MICROZIDE) 12.5 mg capsule TAKE 1 CAPSULE ORALLY DAILY 12/20/[address] (PROTONIX) 40 mg EC tablet 40 MG ORALLY TWICE A DAY 12/30/2022 Active aspirin 81 mg enteric coated tablet Take 1 tablet (81 mg total) by mouth daily Ok to continue for 01/27 EGD Active cholecalciferol (VITAMIN D-3) 15753 unit capsule Take 1 capsule (10,000 Units total) by mouth daily Active multivitamin with minerals tablet Take 1 tablet by mouth daily Active oxyCODONE (ROXICODONE) 5 mg immediate release tabletIndicatio ns:Pain Take 1 tablet (5 mg total) by mouth every 4 (four) hours as needed for pain 10 tablet 04/17/2023 Active acetaminophen 500 mg capsule Take 1 capsule (500 mg total) by mouth every 6 (six) hours as needed for pain 60 capsule 04/17/2023 Active Active Problems Patient Care Coordination No te Formatting of this note migh t be different from the original. Danita Baca NP 01/30/2023 09:07 AM This is a 72-year-old male patient presenting to the clinic today in consultation for GERD. Patient was referred to the clinic by Dr. Luis Antonio Taylor. He has a medical history significant for GERD, large esophageal diverticula, esophageal stricture, sigmoid diverticula, colon polyps, benign familial tremor, cervicalgia, COVID- 19, and diabetes mellitus. He is a former 2 pack per day smoker x5 years who quit 1972. He underwent an EGD at [facility] on 12/16/2022 with the following findings: A few large pseudo diverticula were present in the distal esophagus. A small hiatal hernia was found in the fundus. A moderate stenosis was noted at the GE junction. A TTS balloon dilation was performed using an 18-20 mm balloon. Moderate patchy gastritis was seen in the antrum. The gastritis had a moderate erosive change. A cold forceps biopsy was taken from the antrum for rapid urease/BREANNA test. Nonerosive reflux disease was present at the GE junction. Impressions: Esophageal pseudo diverticula. Hiatal hernia. Recommendations: Continue present medications. Anti-reflux diet measures. If H pylori is positive, you will be notified within 24 hours. Avoid eating or drinking for 2 hours before bedtime. Hopefully dilation of the stricture we will allow the esophagus to empty more completely. If regurgitation persists, anti- reflux surgery will need to be considered. He is scheduled for a double contrast esophagram prior to his appointment. He is here for further surgical evaluation and discussion. Danita Baca NP 03/27/2023 13:17 This is a 72-year-old male patient returning to the clinic today for further evaluation of dysphagia, diverticula to the distal esophagus, and hiatal hernia. He was initially referred to clinic by Dr. Luis Antonio Taylor. He has a medical history significant for GERD, large esophageal diverticula, esophageal stricture, sigmoid diverticula, colon polyps, benign familial tremor, cervicalgia, COVID-19, and diabetes mellitus. He is a former 2 pack per day smoker x5 years who quit 1972. He was last seen in the clinic on 02/10/2023 at which point the plan was as follows: The patient has dysphagia and evidence of diverticula in the distal esophagus. Usually, diverticula in the distal esophagus are markers for esophageal dysmotility. Typically, they will be associated with some degree of poor relaxation of the distal esophagus or achalasia. Treating the diverticula is usually associated with a myotomy of the distal esophagus. He also seems to have a hiatal hernia. This would be addressed at the same time. We had a thorough discussion about these issues. I idalmis pictures for him. We outlined the nature of the hiatal hernia and the importance of the presence or absence of the diverticula. We also outlined the importance of the manometry findings. We will work to complete the testing as quickly as possible. He is eager to get things fixed as quickly as he can. We will try to accommodate. I discussed all of this with the patient. I provided counseling and education to the patient and to family/caregiver. We discussed the options available at this point, and discussed the risks for morbidity with and without intervention. We discussed management of the issues and settled on the following plans for management: Reschedule and performed the contrast swallow soon. Arrange for manometry as quickly as possible Consideration and planning for an operation for myotomy of the distal esophagus and proximal stomach as well as repair of the hiatal hernia. The patient underwent a double contrast esophagram on 02/20/2023 which reveals the following: FINDINGS: Commodity Management Specialist radiograph was unremarkable. Patient ingested thick barium. After the 1st barium bolus, the esophagus was noted to be significantly dilated. There was profound incomplete lower esophageal sphincter relaxation. There was continuous uncoordinated, non-propulsive, tertiary contractions. Specifically, corkscrew contractions in the esophagus were noted. There was tapering of the inferior esophagus. There is a esophageal diverticulum located approximally 2 cm cephalad to the gastroesophageal junction. This is most likely a pulsion diverticula. This measures 1.9 x 1.2 cm. This projects anteriorly in his best visualized on oblique and lateral views. There is a moderate hiatal hernia. Gastroesophageal junction located approximally 4 cm cephalad to the diaphragm. Commodity Management Specialist radiographs were performed approximally 10- 20 minutes after the esophagram. This demonstrated residual contrast in the distal esophagus and hiatal hernia. IMPRESSION: Significantly distended esophagus with uncoordinated tertiary contractions resulting in corkscrew appearance, failure of the lower esophageal sphincter to relax, and tapering of the inferior esophagus. These findings are highly concerning for achalasia. There was retained barium in the distal esophagus more than 20 minutes after drinking barium. Esophageal pulsion diverticulum just proximal to the gastroesophageal junction projecting anteriorly measuring 1.9 x 1.2 cm. Moderate hiatal hernia. Findings were discussed with Dr. Christine and it was determined that the patient's manometry testing could be cancelled. He is presenting to the clinic today for further discussion pre-operatively. Patient has been out of town and this is the soonest that the patient was available to return to the clinic for further discussion. Danita Baca NP 01/02/2024 11:41 AM This is a 73-year-old male patient returning to the clinic today for difficulty swallowing status post Heller myotomy on 04/16/[address] Christine. He was initially referred to clinic by Dr. Luis Antonio Taylor. He has a medical history significant for GERD, large esophageal diverticula, esophageal stricture, sigmoid diverticula, colon polyps, benign familial tremor, cervicalgia, COVID-19, and diabetes mellitus. He is a former 2 pack per day smoker x5 years who quit 1972. He was last seen in clinic on 07/28/2023 at which point in time he was noted to be doing well status post Heller myotomy and had no concerns. At that point in time the plan was to see him back in 1 year. He reached out to the office on 12/12/2023 reporting difficulty swallowing and requested a sooner follow-up appointment. On further assessment, he reports that this occurs randomly and not all of the time. It is not effecting his ability to intake food. He denies any reflux. He is scheduled for a double contrast esophagram on 01/09/2024 which reveals: COMPARISON: Esophagram 04/17/2023. FINDINGS: There is abnormal esophageal peristalsis with simultaneous non peristaltic esophageal contractions. There is Redemonstration of anterior outpouching of the mid esophagus suspicious for a diverticulum or postsurgical changes (series 39). A larger outpouching is also seen in the distal esophagus likely at the surgical anastomosis (series 43). No evidence of esophageal perforation or leak. There is significant delay in complete emptying of barium from the esophagus into the stomach which is worsened in supine position, posing risk for aspiration. No esophageal mass or mucosal abnormality. IMPRESSION: There are abnormal non peristaltic esophageal contractions with significant delay in emptying of barium into the stomach, worsened in the supine position, posing risk for aspiration. Outpouchings in the mid esophagus may represent postsurgical changes or diverticulum. Additional larger outpouching in the distal esophagus, not significantly changed from prior likely postsurgical. No esophageal mass, leak, stricture or mucosal abnormality. . All imaging available on file. He is here for further evaluation and discussion. 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 Utilities Answer Date Recorded In the past 12 months has th e electric, gas, oil, or water company threatened to shut off services in your home? No 04/17/2023 Social Connection and Isolat ion Panel [NHANES] Answer Date Recorded In a typical week, how many times do you talk on the phone with family, friends, or neighbors? More than three times a week 04/17/2023 How often do you get togethe r with friends or relatives? More than three times a week 04/17/2023 How often do you attend chur ch or faith services? Never 04/17/2023 Do you belong to any clubs o r organizations such as jainism groups, unions, fraternal or athletic groups, or school groups? Yes 04/17/2023 How often do you attend meet ings of the clubs or organizations you belong to? More than 4 times per year 04/17/2023 Are you , , di vorced, , never , or living with a partner? 04/17/2023 AUDIT-C Answer Date Recorded Q1: How often do you have a drink containing alc ohol? 2-3 times a week 02/04/2024 Q2: How many drinks containi ng alcohol do you have on a typical day when you are drinking? 3 or 4 02/04/2024 Q3: How often do you have si x or more drinks on one occasion? Never 02/04/2024 Overall Financial Resource Strain (CARDIA) Answe r Date Recorded How hard is it for you to pa y for the very basics like food, housing, medical care, and heating? Not hard at all 04/17/2023 Hunger Vital Sign Answer Date Recorded Within the past 12 months, y ou worried that your food would run out before you got the money to buy more. Never true 04/17/20 23 Within the past 12 months, t he food you bought just didn't last and you didn't have money to get more. Never true 04/17/2023 PRAPARE - Transportation Answer Date Re corded In the past 12 months, has l ack of transportation kept you from medical appointments or from getting medications? No 03/29 In the past 12 months, has l ack of transportation kept you from meetings, work, or from getting things needed for daily living? No 04/17/2023 Housing Stability Vital Sign Answer Joe e Recorded In the last 12 months, was t here a time when you were not able to pay the mortgage or rent on time? No 04/17/2023 In the last 12 months, how many places have you lived? 1 04/17/2023 In the last 12 months, was t here a time when you did not have a steady place to sleep or slept in a chcf (including now)? No 04/17/2023 Personal Safety Answer Date Recorded Have you ever been in or are you currently in a harmful physical or emotional relationship or is someone making you feel afraid or unsafe? Denies 02/04/2024 Sex and Gender Information Value Date Recorded Sex Assigned at Not on file Legal Sex Male 7:48 AM CDT Gender Identity Not on file Sexual Orientation Not on file Last Filed Vital Signs Vital Sign Reading Time Taken Comments Blood Pressure 149/59 02/04/2024 9:11 AM CDT Pulse 51 02/04/2024 9:11 AM CDT Temperature 36.2 C (97.1 F) 02/04/2024 8:41 AM CDT Respiratory Rate 18 02/04/2024 9:11 AM CDT Oxygen Saturation 99% 02/04/2024 9:11 AM CDT Inhaled Oxygen Concentration - - Weight 93.9 kg (207 lb) 01/21/2024 9:30 AM CDT Height 177.8 cm (5' 10 ) 01/21/2024 9:30 AM CDT Body Mass Index 29.7 01/21/2024 9:30 AM CDT Plan of Treatment Not on file Procedures Procedure Name Priority Date/Time Associated Diagnosis Comments CTA ABDOMEN PELVIS W WO CONTRAST Routine 11/14/2017 12:00 AM CDT from Last 3 Months or Most Recently Relevant to Health Maintenance Results * CTA Abdomen Pelvis (11/14/2017 12:00 AM CDT) Anatomical Region Laterality Modality Body N/A Computed Tomogra phy 11/14/2017 Impressions 11/14/2017 1:49 PM CDT No evidence of abdominal aorta aneurysm, dissection or flow limiting disease.. Small hiatal hernia with marked thickening of the distal 1/3 of the esophagus. Correlation with EGD is recommended Uncomplicated diverticulosis. THIS IS AN ELECTRONICALLY VERIFIED FINAL REPORT 11/14/2017 1:46 PM - Electronically signed by Osmany Tinoco M.D. JA: ITALO Report ID: [id number] Reading Location: [id number] [EOD] Narrative 11/14/2017 1:49 PM CDT EXAM DESCRIPTION: CTA Abdomen/Pelvis REASON FOR STUDY: Outside ultrasound performed August 2017 demonstrated abdominal aortic aneurysm. CT is being obtained for further evaluation Technique: CTA of the abdomen and pelvis performed without and with intravenous and without oral contrast using helical scanning technique with dynamic intravenous contrast injection. Precontrast, arterial phase, and portal venous phase images of the abdomen and pelvis were obtained. Reconstructed coronal and sagittal MPR images reviewed. All images stored on PACS. 3D MIP images were reviewed. Automated exposure control was used as a dose optimization technique for this examination. CONTRAST TYPE/DOSE: 100 mL of Optiray 350 contrast were intravenously injected at the right antecubital. COMPARISON: None available FINDINGS: VASCULATURE: NON-CONTRASTED IMAGING: Minimal calcific atherosclerotic disease seen. ABDOMINAL AORTA: No dissection, aneurysm, intramural hematoma, rupture, or penetrating atherosclerotic ulcer. MESENTERIC/RENAL: No flowing limiting disease. Single bilateral renal arteries. There is direct origin of the common hepatic artery off the abdominal aorta. No anatomic variation of the mesenteric vessels. PELVIC VASCULATURE: Common/external iliac arteries: No dissection, aneurysm, intramural hematoma, rupture, or penetrating atherosclerotic ulcer. No flow limiting disease. Internal iliac arteries: No dissection, aneurysm or flow limiting disease. ABDOMEN/PELVIS: LOWER CHEST: There is marked thickening of distal esophagus with a small hiatal hernia. LIVER: Normal size. No identified cystic or solid masses. GALLBLADDER: No stones identified. No wall thickening or inflammatory changes. BILE DUCTS: No intrahepatic or extrahepatic ductal dilatation. SPLEEN: Normal size. No focal lesions. PANCREAS: No identified cystic or solid masses. No significant calcifications. No adjacent inflammation or peripancreatic fluid collections. Pancreatic duct not dilated. ADRENALS: Normal. KIDNEYS/URINARY TRACT: No identified significant cystic or solid masses. No stones. No hydronephrosis or hydroureter. Symmetric enhancement. Normal bladder. GI: No dilated bowel loops. No obvious wall thickening. Normal appendix. Mild uncomplicated diverticular disease. PERITONEUM: No ascites or free air. RETROPERITONEUM: No mass or adenopathy. REPRODUCTIVE: No significant abnormality. MUSCULOSKELETAL: No acute findings. OTHER: No other abnormality. Procedure Note ProviderЕкатерина MD - 09/13/2020 EXAM DESCRIPTION: CTA Abdomen/Pelvis REASON FOR STUDY: Outside ultrasound performed August 2017 demonstrated abdominal aortic aneurysm. CT is being obtained for further evaluation Technique: CTA of the abdomen and pelvis performed without and with intravenous and without oral contrast using helical scanning techniquewith dynamic intravenous contrast injection. Precontrast, arterial phase, and portal venous phase images of the abdomen and pelvis were obtained. Reconstructed coronal and sagittal MPR images reviewed. All images storedon PACS. 3D MIP images were reviewed. Automated exposure control was used as a dose optimization technique forthis examination. CONTRAST TYPE/DOSE: 100 mL of Optiray 350 contrast were intravenously injected at the right antecubital. COMPARISON: None available FINDINGS: VASCULATURE: NON-CONTRASTED IMAGING: Minimal calcific atherosclerotic disease seen. ABDOMINAL AORTA: No dissection, aneurysm, intramural hematoma, rupture, or penetrating atherosclerotic ulcer. MESENTERIC/RENAL: No flowing limiting disease. Single bilateral renal arteries. There is direct origin of the common hepatic artery off the abdominal aorta. No anatomic variation of the mesenteric vessels. PELVIC VASCULATURE: Common/external iliac arteries: No dissection, aneurysm, intramuralhematoma, rupture, or penetrating atherosclerotic ulcer. No flow limiting disease. Internal iliac arteries: No dissection, aneurysm or flow limitingdisease. ABDOMEN/PELVIS: LOWER CHEST: There is marked thickening of distal esophagus with a small hiatal hernia. LIVER: Normal size. No identified cystic or solid masses. GALLBLADDER: No stones identified. No wall thickening or inflammatorychanges. BILE DUCTS: No intrahepatic or extrahepatic ductal dilatation. SPLEEN: Normal size. No focal lesions. PANCREAS: No identified cystic or solid masses. No significantcalcifications. No adjacent inflammation or peripancreatic fluid collections. Pancreaticduct not dilated. ADRENALS: Normal. KIDNEYS/URINARY TRACT: No identified significant cystic or solid masses.No stones. No hydronephrosis or hydroureter. Symmetric enhancement. Normal bladder. GI: No dilated bowel loops. No obvious wall thickening. Normal appendix. Mild uncomplicated diverticular disease. PERITONEUM: No ascites or free air. RETROPERITONEUM: No mass or adenopathy. REPRODUCTIVE: No significant abnormality. MUSCULOSKELETAL: No acute findings. OTHER: No other abnormality. IMPRESSION: No evidence of abdominal aorta aneurysm, dissection or flow limiting disease.. Small hiatal hernia with marked thickening of the distal 1/3 of theesophagus. Correlation with EGD is recommended Uncomplicated diverticulosis. THIS IS AN ELECTRONICALLY VERIFIED FINAL REPORT 11/14/2017 1:46 PM - Electronically signed by Osmany Tinoco M.D. JA: [place] Report ID: [id number] Reading Location: [id number] [EOD] Jose Raul Su MD IMG CT PROCEDURES Final Re sult from Last 3 Months or Most Recently Relevant to Health Maintenance Insurance MEDICARE [facility] MEDICARE [facility] Advance Directives For more information, please contact: [phone] * Full Code (Latest Code Status on File) Date Activated Date Inactivated Comments 04/16/2023 6:29 PM 04/17/2023 6:42 PM Care Teams Air Dispatcher Relationship Specialty Start Date End Date Tariq Lambert MD [address] [facility] [address] [place] [address] PCP - General Family Medicine 01/17/23 Rekha Espinosa NP [address] [facility] [address] [place] [address] Nurse Practitioner Nurse Practitioner 02/10/23 Luis Antonio Taylor MD [address] [facility] [address] [place] [address] Referring Physician Gastroenterology 03/31/23 Diego Christine MD [id number] [place] [address] Surgeon Thoracic Surgery 04/17/23
--- OUTSIDE RECORDS SUMMARY | 2024-08-24 17:35 | XMS_ITS | Clinical Summary ---
Author Organization [facility] Address [address] [place] [address] Care Team Providers Care Red Hat Linux Administrator Name Role Phone Tariq Lambert MD Primary Care Provider [phone] Rekha Espinosa NP Unavailable [phone] Luis Antonio Taylor MD Unavailable [phone] Diego Christine MD Unavailable [phone] Allergies No known active allergies Medications metoprolol [...] for 01/27 EGD Active cholecalciferol (VITAMIN D-3) 55153 unit capsule Take 1 capsule (10,000 Units [...] quit 1972. He underwent an EGD at [facility] on 12/16/2022 with the following findings: A [...] on 02/20/2023 which reveals the following: FINDINGS: Lacer And Tier radiograph was unremarkable. Patient ingested thick barium. [...] approximally 4 cm cephalad to the diaphragm. Lacer And Tier radiographs were performed approximally 10- 20 minutes [...] 02/10/2023 Abdominal aortic aneurysm without rupture 2017 Encounters Date Type Department Care Team Description 08/02/2024 Telephone [facility] [address] [place] [address] Referral, Self Appointment Time from Last 3 Months Surgical History Surgery Date Site/Laterality Comments INGUINAL HERNIA REPAIR Right multiple recurrences ESOPHAGEAL DILATION 01/26/2023 - 02/25/2023 LAPAROSCOPIC HELLER MYOTOMY 04/28/2022 - 04/27/2023 Medical History Medical History Date Comments GERD (gastroesophageal reflux disease) Esophageal diverticulum Large es ophageal diverticuli Esophageal stricture Sigmoid diverticulum Sigmoid div erticuli Colon polyps Benign familial tremor Cervicalgia Covid-19 AAA (abdominal aortic aneurysm) Followed by Betina Su MD. No further workup or surveillance screening is required. Follow-up with me on a p.r.n. basis per last office note on 10/2017 Type 2 diabetes mellitus (HCC) Obesity Family History Relation Name Status Comments Father Mother Social History Tobacco Use Types Packs/Day Years Used Date Smoking Tobacco: Former Cigarettes 2 5 0 10/27/1967 - 10/26/1972 Smokeless Tobacco: Never Tobacco Cessation:Counseling Given: Not Answered [facility] Utilities Answer Date Recorded In the past 12 months has e electric, gas, oil, or water company [...] often do you attend chur ch or rastafari services? Never 04/17/2023 Do you belong to any clubs o r organizations such as bahai groups, unions, fraternal or athletic groups, or [...] place to sleep or slept in a long-term (including now)? No 04/17/2023 Personal Safety Answer [...] on file Sexual Orientation Not on file Obstetrics History Last Filed Vital Signs Vital Sign Reading [...] 01/21/2024 9:30 AM CDT Plan of Treatment Health Maintenance Due Date Last Done Comments Colon Cancer Screening-Colonoscopy 1950 Depression Screening 1950 Hepatitis C Screening 1950 DTaP/Tdap/Td Vaccine (1 - Tdap) 1961 Hepatitis B Screening 1968 Pneumococcal vaccine 65+ (1 of 1 - PCV) 2000 Zoster Vaccine (1 of 2) 2000 Well Visit 65+ 2015 Influenza Vaccine (Season Ended) 2024 Fall Risk Assessment 01/15/2025 01/16/2024 Abdominal Aortic Aneurysm (A AA) Screen Completed 11/20/2017, 11/14/2017, 11/14/2017, Additional history exists Procedures Procedure Name Priority Date/Time Associated Diagnosis [...] Osmany Tinoco M.D. JA: ITALO Report ID: [id number] Reading Location: [id number] [EOD] Narrative 11/14/2017 1:49 PM CDT EXAM [...] findings. OTHER: No other abnormality. Procedure Note Provider, MD Екатерина - 09/13/2020 EXAM DESCRIPTION: CTA Abdomen/Pelvis REASON [...] Osmany Tinoco M.D. JA: ITALO Report ID: [id number] Reading Location: [place] [address] [EOD] Jose Raul Su MD IMG CT PROCEDURES Final Re sult from Last 3 Months or Most Recently Relevant to Health Maintenance Insurance [employer] MEDICARE [facility] [facility] Advance Directives For more information, please contact: [phone] * Full Code (Latest Code Status on File) Date Activated Date Inactivated Comments 04/16/2023 6:29 PM 04/17/2023 6:42 PM Care Teams Red Hat Linux Administrator Relationship Specialty Start Date End Date Tariq Lambert MD [facility] [address] [address] PCP - General Family Medicine 01/17/23 Rekha Espinosa NP [address] [facility] [address] [place] [address] Nurse Practitioner Nurse Practitioner 02/10/23 Luis Antonio Taylor MD [address] [facility] [address] [place] [address] Referring Physician Gastroenterology 03/31/23 Diego Christine MD [facility] [id number] [place] [address] Surgeon Thoracic Surgery 04/17/23
--- OUTSIDE RECORDS SUMMARY | 2024-08-24 17:35 | XMS_ITS | Clinical Summary ---
Author Organization [facility] Address [address] [place] [address] Phone Care Team Providers Care Audit Consultant Name Role Phone Tariq Lambert MD Primary Care Provider [phone] Social History Tobacco Use Types Packs/Day Years Used Date Smoking Tobacco: Never Assessed Sex and Gender Information Value Date Recorded Sex Assigned at Not on file Legal Sex Male 12:12 PM CDT Gender Identity Not on file Sexual Orientation Not on file Plan of Treatment Health Maintenance Due Date Last Done Comments DTAP/TDAP/TD VACCINES (1 - Tdap) 1969 COLORECTAL SCREENING 1995 Colorectal Cancer Screening 1995 FIT-DNA Q 3 years 1995 FIT/FOBT Q 1 year 1995 Flex Sig/CT Colonography Q 5 years 1995 PNEUMOCOCCAL VACCINE 50+ YEARS (1 of 1 - PCV) 05/14/19 ZOSTER VACCINE (1 of 2) 2000 INFLUENZA VACCINE (#1) 2023 RSV VACCINE (60+ or ) (1 - 1-dose 75+ series) 2025 Care Teams Audit Consultant Relationship Specialty Start Date End Date Tariq Lambert MD [address] [place] [address] [address] [place] [address] PCP - General Family Practice 01/09/23
[2024-08-24 17:42] LABS: Add Urine Microscopic? YES; Appearance Urine Clear (Clear); Bacteria Urine None Seen /hpf; Bilirubin Urine 1+ (Negative); Blood Urine Negative (Negative); Color Urine Dark Yellow (Yellow); Glucose Urine UA Negative (Negative); Ketones Urine Trace mg/dL (Negative); Leukocyte Esterase Ur Trace LEU/UL (Negative); Nitrate Urine Negative (Negative); Non Pathogenic Casts 0-2; Protein Urine Trace mg/dL (Negative); RBC Urine 0-2 /hpf (0-2); Specific Grav Ur 1.026 (1.001-1.035); Squamous Epithelial Cell Urine None Seen /hpf (Few); WBC Urine 0-5 /hpf (0-3); pH Urine 5.5 (5.0-9.0)
[2024-08-24 17:44] LABS: Alanine Aminotransferase 16 U/L (6-50); Albumin Level 3.9 g/dL (3.5-5.1); Alkaline Phosphatase 62 U/L (38-126); Anion Gap 8 mmol/L (4-12); Aspartate Amino Transferase 22 U/L (17-59); Bilirubin,Total 1.2 mg/dL (0.2-1.3); Blood Urea Nitrogen 19 mg/dL (9-20); Calcium 8.8 mg/dL (8.4-10.2); Carbon Dioxide 28 mmol/L (22-30); Chloride 104 mmol/L (98-107); Estimated CRCL calculation 67 ml/min; Estimated Glomerular Filt Rate > 60; Glucose 95 mg/dL (65-110); Lipase 44 U/L (23-300); Potassium 3.9 mmol/L (3.4-5.0); Sodium 140 mmol/L (137-145)
--- OUTSIDE RECORDS SUMMARY | 2024-08-24 17:50 | XMS_ITS | Continuity of Care Document ---
Author Organization [facility] Address [address] [place] [address] [place] [address] Phone Care Team Providers Care Transformer Assembler Name Role Phone [facility] Unavailable Unavail able Unavailable Unavailable Unavailable Advance Directives Directive Yes / No Effective Date File Name No Information Encounters Encounter Description Practice Location Reason(s) For Visit Diagnoses Date Provider Providers Copied on Encounter [facility], [address] [place] [address] [address], [place], [place], [id number], [place] tel:[phone] [facility] No Information [facility] [address] [facility], [address], [place], [place], [id number] , [place]. tel:[phone] Referring Provider: [address] [place], [address]. tel:[phone] Family History Family Member Type Diagnosis Age At Onset No Information Payers Payer name Insurance type Covered libertarian ID Authoriza tion(s) No Information Social History [...]
[2024-08-24] MEDS: PIPERACILLN/TAZ 3.375GM/NS50ML 3.375 GM/50 ML BAG IVPB ×2 (18:31→23:33)
[2024-08-24 19:28] VITALS: BP 114/62; PULSE 62; RESP 18; O2SAT 98
--- NOTE | 2024-08-24 21:19 | ADMGEN ---
This patient, Malik Ann, was admitted to [facility] Surg Room 319-01. Patient/family oriented to hospital policies and general routines including ID bracelet, bed and alarms, visiting hours, pain management, procedures, bathroom and other care routines, personal items, smoking policy, room service/diet, and visiting hours. Information on how to activate the Rapid Response Team has been discussed. Patient/Family are encouraged to report perceived risks to care and to ask questions if they do not understand what they are told or what they should do.
[2024-08-24] MEDS: SODIUM CHLORIDE 0.9% IV 1,000 ML 125 ML IV CONT (21:38)
[2024-08-24 21:47] VITALS: BP 138/62; PULSE 64; RESP 16; TEMP 36.6; O2SAT 98
[2024-08-24 22:37] LABS: Glucose Point of Care 152 mg/dl (65-105)
[2024-08-25] VITALS (10 sets, daily range): BP systolic 135–170; BP diastolic 57–75; PULSE 57–80; RESP 12–20; TEMP 35.8–37.2; O2SAT 95–100
--- NOTE | 2024-08-25 01:14 | PM.IMHP ---
H&P: HPI History of Present Illness Date/Time: 08/25/24 01:14 Chief Complaint: Right lower abdominal pain Narrative: 74-year-old male with a past medical history essential hypertension, hyperlipidemia, diabetes, hiatal hernia repair, and bilateral inguinal hernia repair who presented to the [facility] after CT scan demonstrated acute appendicitis. The patient had been evaluated by Dr. Lambert as outpatient after reporting 2 days right lower abdominal pain and directed to go for outpatient CT which demonstrated acute appendicitis with a minimal amount of surrounding fluid. No free air or evidence of perforation. Persistent sliding hiatal hernia and fat containing left inguinal hernia and small fat containing umbilical hernia as well. He denied any fevers. He reports that he usually has a bowel movement every 2-3 days in his last bowel movement was 2 days ago and normally formed. He denies any real changes in his appetite. He has had some nausea but no vomiting. But he reports he does not usually have any vomiting ever since he had his hiatal hernia repair. He reports that his pain is burning in nature and has been constant. He reports the 1st day that it was more mild and a 2nd it was more moderate. He reports that is worst at the 6/10 in intensity. He denies any urinary symptoms. He is noted to be bradycardic but he states that he is usually bradycardic. He reports that he exercises regularly, golfs frequently and lifts weights. Review of Systems Review of Systems: 12 systems were reviewed with pertinent positives and negatives per HPI. Except as documented in the HPI, all other systems were reviewed and are negative. [facility] Past Medical History Medical History (Updated 08/25/24 @ 08:33 by Nancy Finn DO) Diabetes Umbilical hernia Achalasia Acquired deviated nasal septum Dyskinesia of esophagus Other seasonal allergic rhinitis Abdominal aortic aneurysm without rupture Diverticula of colon Benign esophageal stricture Esophageal diverticulum Benign familial tremor Cervicalgia GERD (gastroesophageal reflux disease) Obesity (BMI 30.0-34.9) Essential (primary) hypertension Other spondylosis, cervical region Unspecified asthma, uncomplicated Allergy induced Surgical History Surgical History (Updated 08/25/24 @ 08:07 by Nancy Finn DO) History of esophageal dilatation Hx of LASIK History of esophageal hernia repair History of inguinal hernia repair 03/12/2022 - open recurrent right inguinal hernia repair with mesh S/P inguinal hernia repair Right inguinal hernia repair x2 once as a child, 2016 Family History Family History Father Diabetes mellitus Family history of Parkinson's disease Sibling Family history of lupus erythematosus Other Family history of arthritis Family history of chronic obstructive pulmonary disease Social History Social History (Updated 08/25/24 @ 08:10 by Nancy Finn DO) Social History: The patient lives with his of 51 years. 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 He drinks alcohol on occasion and in moderation. He denies illicit substance use. He briefly when he was young. Code status: Full code Surrogate decision maker: Cece () Smoking packs per day: 2 Smoking cigarettes per day: 40.0 Years smoked: 5 Smoking pack-years: 10.00 Smoking status: Former smoker Tobacco type: cigarettes Smoking end date: 10/26/72 Alcohol intake: current Drinks per week: 5 Substance use: never Substance use type: does not use Do You Feel Safe in your Home?: Yes Lack of Transportation: No Lack of Food: Never True Current Housing: I Have Housing Concerned About Future Housing: No Difficulty Paying Gas/Electric Bills: No Difficulty Paying for Meds: No Currently Unemployed: No Education: Bachelor's Degree Difficulty w/ Childcare or Family Care: No Living arrangements: with family Additional living arrangements comments: Gender identity (if verbalized by the patient): Male Spiritual care concerns: No Meds Home Medications and Allergies Home Medications ?Medication ?Instructions ?Recorded ?Confirmed ?Type aspirin 81 mg tablet,delayed 81 mg PO DAILY 12/24/19 08/24/24 History release (Adult Aspirin Regimen) cholecalciferol (vitamin D3) 50 50 mcg PO DAILY 12/24/19 08/24/24 History mcg (2,000 unit) capsule metoprolol succinate 50 mg 50 mg PO QAM #90 tabs 08/13/23 08/24/24 Rx tablet,extended release 24 hr pantoprazole 40 mg tablet,delayed See Rx Instructions .Route 09/10/23 08/24/24 Rx release .COMPLEX #180 tabs amlodipine 5 mg tablet 5 mg PO DAILY #90 tabs 07/12/24 08/24/24 Rx hydrochlorothiazide 12.5 mg capsule 12.5 mg PO DAILY #90 caps 07/16/24 08/24/24 Rx lisinopril 10 mg tablet 10 mg PO DAILY #90 tabs 07/16/24 08/24/24 Rx metformin 500 mg tablet,extended 500 mg PO DAILY #90 tabs 07/16/24 08/24/24 Rx release 24 hr tamsulosin 0.4 mg capsule 0.4 mg PO DAILY #7 caps 08/24/24 08/24/24 Rx Allergies Allergy/AdvReac Type Severity Reaction Status Date / Time No Known Allergies Allergy Verified 08/24/24 16:50 Vital Signs Vital Signs - 24 hr 08/24/24 16:44 08/24/24 19:28 08/24/24 21:47 Temperature 98.1 F 97.8 F Pulse Rate 71 62 64 Respiratory Rate 18 18 16 Blood Pressure 131/55 L 114/62 138/62 Pulse Oximetry 98 98 98 Oxygen Delivery Room Air Exam Narrative: Weight 96 kg BMI 30.4 Const: Other: Overweight, no acute distress, appears stated age HENMT: Other: Mucous membranes are tacky dry, no oral pharyngeal erythema, fair dentition Eyes: Other: Pupils are equal and reactive, no scleral icterus, no conjunctival pallor Neck: Other: No lymphadenopathy, trachea midline Resp: Other: Clear to auscultation bilaterally, no increased work breathing Cardio: Other: Regular rate, regular rhythm, 2+ bilateral radial pedal pulses GI: Other: Soft, normoactive bowel sounds, no organomegaly, voluntary guarding with palpation of the right lower quadrant due to pain from localized peritonitis, no tympany Skin: Other: No jaundice, no pallor Neuro: Other: Alert oriented, speech is clear, no facial asymmetry, no localizing neurologic deficits noted during the course of conversation Extrem: Other: No clubbing, cyanosis or edema Psych: Other: Appropriate mood and affect, pleasant and cooperative, judgment and insight intact H&P: Results Labs Labs: Laboratory Tests 08/24/24 17:25 08/24/24 17:25 08/24/24 08/24/24 08/24/24 17: 17:30 22:34 WBC 8.2 RBC 4.46 L Hgb 13.3 L Hct 41.5 L MCV 93.0 MCH 29.8 MCHC 32.0 RDW 13.8 Plt Count 207 MPV 9.7 Immature Gran % (Auto) 0.1 Neut % (Auto) 67.8 Lymph % (Auto) 22.7 Gladwin % (Auto) 8.3 Eos % (Auto) 0.7 Baso % (Auto) 0.4 Lymph # (Auto) 1.87 Gladwin # (Auto) 0.7 H Eos # (Auto) 0.1 Baso # (Auto) 0.0 Abs Immat Gran (auto) 0.01 Absolute Neuts (auto) 5.6 Absolute Nucleated RBC 0.000 Nucleated RBC % 0.0 Sodium 140 Potassium 3.9 Chloride 104 Carbon Dioxide 28 Anion Gap 8 BUN 19 Creatinine 0.99 Estim Creat Clear Calc 67 Estimated GFR > 60 Glucose 95 POC Capillary Glucose 152 H Calcium 8.8 Total Bilirubin 1.2 AST 22 ALT 16 Alkaline Phosphatase 62 Total Protein 7.0 Albumin 3.9 Lipase 44 Urine Color Dark yellow Urine Appearance Clear Urine pH 5.5 Ur Specific [place] 1.026 Urine Protein Trace Urine Glucose (UA) Negative Urine Ketones Trace H Ur Blood (Man) Negative Urine Nitrate Negative Urine Bilirubin 1+ H Urine Urobilinogen 1.0 Leukocyte Esterase Rfl Trace H Urine RBC 0-2 Urine WBC 0-5 Ur Squamous Epith Cells None seen Urine Bacteria None seen Urine Casts 0-2 Date of Service: 08/24/24 Procedure(s): CT abdomen pelvis wo con Accession Number(s): [id number] cc: Amber Wilcox APRN; Tariq Lambert MD~ CT abdomen pelvis wo con Ordering provider: TA Ruby History: 74 years Male with . Unspecified abdominal pain, right side . Comparison: January 10, 2022 Technique: CT abdomen and pelvis without IV and without oral contrast. Automated exposure control and iterative reconstruction technique were employed. The dose-length product was 1046.89 mGy-cm. Findings: VISUALIZED LOWER CHEST: Normal. UPPER ABDOMINAL ORGANS: Liver: Normal. Gallbladder: Normal. Spleen: Normal. Calcified granulomas. Stomach/duodenum: Sliding hiatus hernia. Pancreas: Normal. Adrenals: Normal. Kidneys: 1.5 cm soft tissue density in the right kidney lower pole most likely a cyst. Small hypodense lesion seen in the left kidney upper pole most likely hemorrhagic cyst. Ultrasound evaluation advised. Bilateral PELVIC ORGANS: The bladder is underfilled with thickened wall. Evaluation for cystitis advised. BOWEL AND MESENTERY: Colon: No evidence of diverticulitis. Thickened appendix with surrounding fat stranding and minimal fluid is seen suggestive of appendicitis. The appendix measures 1.2 cm. Small Bowel: Normal. No obstruction. Peritoneum/mesentery: No free air or free fluid. No mesenteric lymphadenopathy. RETROPERITONEUM: Mild atheromatous disease of the abdominal aorta. No retroperitoneal lymphadenopathy. MUSCULOSKELETAL: Superficial soft tissues: Left fat-containing inguinal hernia. Small fat-containing umbilical hernia. Otherwise, The superficial soft tissues are normal. Bones: Age appropriate degenerative changes of the spine. Ossification seen near to the right femoral neck IMPRESSION: 1. Acute appendicitis with surrounding minimal fluid. No free air to suggest perforation.. Clinical correlation advised. 2. Sliding hiatus hernia. Fat-containing left inguinal hernia. Small fat-containing umbilical hernia. Physician: TA Ruby Was notified with the result of the patient at 3:43 PM on August 24, 2024. Reviewed, dictated and finalized at location A. All imaging and EKGs personally reviewed and interpreted. And unless stated otherwise agree with radiologic and cardiology interpretation. Assessment and Plan Assessment and plan (1) Acute appendicitis: Qualifiers: Acute appendicitis type: with localized peritonitis Appendicitis abscess presence: without abscess Appendicitis gangrene presence: without gangrene Appendicitis perforation presence: without perforation Qualified Code(s): K35.30 - Acute appendicitis with localized peritonitis, without perforation or gangrene Code(s): K35.80 - Unspecified acute appendicitis Status: Acute (2) Essential (primary) hypertension: Code(s): I10 - Essential (primary) hypertension Status: Acute (3) GERD (gastroesophageal reflux disease): Qualifiers: Esophagitis presence: esophagitis presence not specified Qualified Code(s): K21.9 - Gastro-esophageal reflux disease without esophagitis Code(s): K21.9 - Gastro-esophageal reflux disease without esophagitis Status: Acute (4) Diabetes: Qualifiers: Diabetes mellitus type: type 2 Diabetes mellitus diversity intern insulin use: without diversity intern use Diabetes mellitus complication status: without complication Qualified Code(s): E11.9 - Type 2 diabetes mellitus without complications Code(s): E11.9 - Type 2 diabetes mellitus without complications Status: Acute Plan The patient has acute appendicitis and has been started on empiric antibiotic therapy. He is NPO. General surgery has been consulted. Does seem to have some localizing peritoneal signs with some voluntary guarding but is otherwise clinically stable. Will await further recommendations from General surgery. Blood cultures have been ordered and are pending. Patient does have essential hypertension but blood pressures are stable. Medications are on while the patient is NPO. Will resume antihypertensives when okay with surgical service. Will place patient on IV Protonix in place of his oral dosing. Patient does have a history of type 2 diabetes listed but patient's A1c for as far back as I can look in the system in 2019 has never been consistent with diabetes or for increased risk of diabetes. In fact the patient's A1c has been frankly low at times. Even looking at the computer system is for the back as 2009 the patient has had normal glucoses. At this point I would not call the patient a diabetic. No need to monitor glucoses. Metformin has been held. Quality VTE Prophylaxis VTE prophylaxis: mechanical ordered (SCDs) Hospitalist MIPS Advance Care Plan I have confirmed that the patient's Advanced Care Plan is present, code status is documented, or surrogate decision maker is listed in patient medical record.: Yes Medication Reconciliation I have utilized all available resources to obtain, update and review the patients current medications (includes all prescriptions, OTC, herbals, cannabis, and nutritional supplements).: Yes
[2024-08-25 03:36] LABS: Glucose Point of Care 102 mg/dl (65-105)
[2024-08-25] MEDS: PIPERACILLN/TAZ 3.375GM/NS50ML 3.375 GM/50 ML BAG IVPB ×2 (06:22→11:34)
[2024-08-25] MEDS: SODIUM CHLORIDE 0.9% IV 1,000 ML 100 ML IV CONT (06:27)
--- NOTE | 2024-08-25 08:12 | ECG_ITS ---
Test Date: 2024-08-25 09:15:14 Measurements Intervals Shirley Rate: 61 P: 18 NH: 133 QRS: -2 QRSD: 106 T: -14 QT: 461 QTc: 465 Interpretive Statements SINUS RHYTHM INCOMPLETE RIGHT BUNDLE BRANCH BLOCK CONSIDER INFERIOR INFARCT, AGE INDETERMINATE BORDERLINE ST ABNORMALITY- ANTEROLATERAL LEADS BASELINE ARTIFACT- I, II, III, AVR, AVL, AVF, V1-V6 ABNORMAL ECG No previous ECG available for comparison Electronically Signed On 08-25-2024 09:18:45 CDT by Thony Sandy D.O.
--- NOTE | 2024-08-25 09:11 | P.CONGS_ITS ---
Assessment and Plan Assessment and plan (1) Acute appendicitis: Qualifiers: Acute appendicitis type: with localized peritonitis Appendicitis abscess presence: without abscess Appendicitis gangrene presence: without gangrene Appendicitis perforation presence: without perforation Qualified Code(s): K35.30 - Acute appendicitis with localized peritonitis, without perforation or gangrene Code(s): K35.80 - Unspecified acute appendicitis Status: Acute Assessment and Plan: CT scan reviewed and discussed with the patient in detail. There is evidence of acute appendicitis with minimal surrounding fluid but no free air. We discussed both nonoperative treatment with IV antibiotics/monitoring versus proceeding with surgery. We discussed the risks of recurrence or treatment failure with the option of antibiotic therapy. We also discussed the details of a laparoscopic appendectomy, possible open, under general anesthesia that would be done by Dr. Holliday. Description of the procedure, risks, benefits, alternatives, and expected recovery were discussed. We discussed the risks of infection and that this is increased in the setting of a perforation if this is found during surgery. We also spoke about how his treatment course would change if there is a perforation. The patient agrees to proceed with surgery. Continue IV Zosyn and IV fluids. We will keep him NPO. He has been added onto the surgery schedule for today for a laparoscopic appendectomy, possible open, by Dr. Holliday. (2) Diabetes: Qualifiers: Diabetes mellitus complication status: without complication Diabetes mellitus resource agent insulin use: without half-way use Diabetes mellitus type: t ype 2 Qualified Code(s): E11.9 - Type 2 diabetes mellitus without complications Code(s): E11.9 - Type 2 diabetes mellitus without complications Status: Acute Assessment and Plan: Management per hospitalist. (3) Essential (primary) hypertension: Code(s): I10 - Essential (primary) hypertension Status: Acute (4) Achalasia: Code(s): K22.0 - Achalasia of cardia Status: Chronic Assessment and Plan: Dysphagia and regurgitation nearly resolved following his myotomy in Mar 2023. (5) Umbilical hernia: Code(s): K42.9 - Umbilical hernia without obstruction or gangrene Status: Chronic Assessment and Plan: Small fat containing umbilical hernia on CT. Asymptomatic and not an acute issue at this time. Continue to monitor and follow up as an outpatient if he develops symptoms. Plan I have discussed the patient's case and plan of care with Dr. Holliday. History of Present Illness Consult details Consult date: 08/25/24 Reason for consult: other (Acute appendicitis) Requesting physician: Cheri Hutchins PA-C Narrative: This is a 74-year-old man with PMH hypertension, type 2 diabetes mellitus, GERD, and achalasia with esophageal diverticulum s/p laparoscopic myotomy and diverticulectomy with EGD in March 2023, who we have been asked to see in surgical consultation for acute appendicitis. He reports an onset of RLQ abdominal pain starting 3 days ago. He reports mild associated nausea, but no vomiting, diarrhea, chills, or fevers. His pain was worse on Friday, but slightly improved yesterday. He decided to go to an urgent care yesterday and had KUB that showed possible urinary bladder stone. He then followed up with his PCP later in the day, who prescribed Flomax and ordered an outpatient CT scan of the abdomen and pelvis without contrast that showed acute appendicitis with surrounding minimal fluid, no free air to suggest perforation, and sliding hiatal hernia, fat containing left inguinal hernia, small fat containing umbilical hernia, and no kidney stones. He was then directed to the ED for further treatment. He has been started on IV Zosyn, IV fluids, and made NPO. He has had 3 previous right inguinal hernia repairs. He first had this repaired as a child with recurrence in 2015 that was repaired robotically using mesh, and he eventually had another open repair with mesh for recurrent right inguinal hernia in 2021. Review of Systems 2 Review of Systems: All systems reviewed & are unremarkable except as noted in HPI and below PMFSH Past Medical History Medical History (Updated 08/25/24 @ 10:11 by RADHA Simms) Achalasia Diabetes Umbilical hernia Acquired deviated nasal septum Dyskinesia of esophagus Other seasonal allergic rhinitis Abdominal aortic aneurysm without rupture Diverticula of colon Benign esophageal stricture Esophageal diverticulum Benign familial tremor Cervicalgia GERD (gastroesophageal reflux disease) Obesity (BMI 30.0-34.9) Essential (primary) hypertension Other spondylosis, cervical region Unspecified asthma, uncomplicated Allergy induced Surgical History Surgical History History of esophageal dilatation Hx of LASIK History of esophageal hernia repair S/P inguinal hernia repair Right inguinal hernia repair as a child, with recurrence in 2015 that was repaired robotically with mesh, and recurrence again with open repair with mesh in 2021 Family History Family History Father Diabetes mellitus Family history of Parkinson's disease Sibling Family history of lupus erythematosus Other Family history of arthritis Family history of chronic obstructive pulmonary disease Social History Social History Social History: The patient lives with his of 51 years. 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 He drinks alcohol on occasion and in moderation. He denies illicit substance use. He briefly when he was young. Code status: Full code Surrogate decision maker: Cece () Smoking packs per day: 2 Smoking cigarettes per day: 40.0 Years smoked: 5 Smoking pack-years: 10.00 Smoking status: Former smoker Tobacco type: cigarettes Smoking end date: 10/26/72 Alcohol intake: current Drinks per week: 5 Substance use: never Substance use type: does not use Do You Feel Safe in your Home?: Yes Lack of Transportation: No Lack of Food: Never True Current Housing: I Have Housing Concerned About Future Housing: No Difficulty Paying Gas/Electric Bills: No Difficulty Paying for Meds: No Currently Unemployed: No Education: Bachelor's Degree Difficulty w/ Childcare or Family Care: No Living arrangements: with family Additional living arrangements comments: Gender identity (if verbalized by the patient): Male Spiritual care concerns: No Meds Home Medications and Allergies Home Medications ?Medication ?Instructions ?Recorded ?Confirmed ?Type aspirin 81 mg tablet,delayed 81 mg PO DAILY 12/24/19 08/24/24 History release (Adult Aspirin Regimen) cholecalciferol (vitamin D3) 50 50 mcg PO DAILY 12/24/19 08/24/24 History mcg (2,000 unit) capsule metoprolol succinate 50 mg 50 mg PO QAM #90 tabs 08/13/23 08/24/24 Rx tablet,extended release 24 hr pantoprazole 40 mg tablet,delayed See Rx Instructions .Route 09/10/23 08/24/24 Rx release .COMPLEX #180 tabs amlodipine 5 mg tablet 5 mg PO DAILY #90 tabs 07/12/24 08/24/24 Rx hydrochlorothiazide 12.5 mg capsule 12.5 mg PO DAILY #90 caps 07/16/24 08/24/24 Rx lisinopril 10 mg tablet 10 mg PO DAILY #90 tabs 07/16/24 08/24/24 Rx metformin 500 mg tablet,extended 500 mg PO DAILY #90 tabs 07/16/24 08/24/24 Rx release 24 hr tamsulosin 0.4 mg capsule 0.4 mg PO DAILY #7 caps 08/24/24 08/24/24 Rx Allergies Allergy/AdvReac Type Severity Reaction Status Date / Time No Known Allergies Allergy Verified 08/24/24 16:50 Vital Signs Vital Signs - 24 hr 08/24/24 16:44 08/24/24 19:28 08/24/24 21:47 Temperature 98.1 F 97.8 F Pulse Rate 71 62 64 Respiratory Rate 18 18 16 Blood Pressure 131/55 L 114/62 138/62 Pulse Oximetry 98 98 98 Oxygen Delivery Room Air 08/25/24 06:00 Temperature 97.9 F Pulse Rate 57 L Respiratory Rate 14 Blood Pressure 135/59 L Pulse Oximetry 99 Oxygen Delivery Exam 2 Const: General: comfortable and no acute distress Nutritional Appearance: a verage body habitus Orientation/consciousness: patient oriented x3 HENMT: Head: normocephalic and atraumatic Ears: hearing grossly normal bilaterally Mouth: Yes moist mucous membranes Eyes: General: appearance normal, both eyes and all related structures P upils: Equal, round and reactive pupils present Neck: Neck: normal visual inspection and full ROM Resp: Effort & Inspection: no respiratory distress Auscultation: clear to auscultation bilaterally Cardio: Rate: regular rate Rhythm: regular rhythm Peripheral pulses: P eripheral pulses 2+ throughout GI: Inspection: non-distended and scar (right groin scar, small trocar site scars across his mid to upper abdomen) GI Palp: Yes Soft to palpation, Yes Tenderness to palpation present (GI) (RLQ), No Guarding due to palpation present (GI), Yes No hepatosplenomegaly present, Yes Hernia present umbilical (small and nontender, palpable but no visible bulge) < 3 cm and No Rebound tenderness present Auscultation: normal bowel sounds : Penis: Yes normal penis Scrotum: scrotum normal Other: CT suggested left inguinal hernia, small. No inguinal hernia felt on exam. Skin: General skin exam: normal color Neuro: General: moves all extremities and no focal motor deficits Speech: n ormal speech Motor exam (neuro): 5/5 motor strength present throughout Extrem: General: normal to inspection and no edema Psych: Mental Status: mental status grossly normal Attitude: cooperative Insight: Good insight present (Psych) Judgement: Good judgement present (Psych) Results Labs 08/24/24 17:08/24/24 17: Labs: Abnormal lab results 08/24/24 08/24/24 08/24/24 Range/Units 17: 17: 22:34 RBC 4.46 L (4.6-6.20) M/mm3 Hgb 13.3 L (14.0-18.0) g/dL Hct 41.5 L (42.0-52.0) % [place] # (Auto) 0.7 H (0.1-0.6) K/mm3 POC Capillary Glucose 152 H (65-105) mg/dl Urine Ketones Trace H (Negative) mg/dL Urine Bilirubin 1+ H (Negative) Leukocyte Esterase Rfl Trace H (Negative) SHOLA/UL Diabetes panel 08/24/24 Range/Units 17: Sodium 140 (137-145) mmol/L Potassium 3.9 (3.4-5.0) mmol/L Chloride 104 (98-107) mmol/L Carbon Dioxide 28 (22-30) mmol/L BUN 19 (9-20) mg/dL Creatinine 0.99 (0.7-1.3) mg/dL Glucose 95 (65-110) mg/dL Calcium 8.8 (8.4-10.2) mg/dL AST 22 (17-59) U/L ALT 16 (6-50) U/L Alkaline Phosphatase 62 (38-126) U/L Total Protein 7.0 (6.3-8.2) g/dL Albumin 3.9 (3.5-5.1) g/dL Calcium panel 08/24/24 Range/Units 17:25 Calcium 8.8 (8.4-10.2) mg/dL Albumin 3.9 (3.5-5.1) g/dL Pituitary panel 08/24/24 Range/Units 17: Sodium 140 (137-145) mmol/L Potassium 3.9 (3.4-5.0) mmol/L Chloride 104 (98-107) mmol/L Carbon Dioxide 28 (22-30) mmol/L BUN 19 (9-20) mg/dL Creatinine 0.99 (0.7-1.3) mg/dL Glucose 95 (65-110) mg/dL Calcium 8.8 (8.4-10.2) mg/dL Adrenal panel 08/24/24 Range/Units 17:25 Sodium 140 (137-145) mmol/L Potassium 3.9 (3.4-5.0) mmol/L Chloride 104 (98-107) mmol/L Carbon Dioxide 28 (22-30) mmol/L BUN 19 (9-20) mg/dL Creatinine 0.99 (0.7-1.3) mg/dL Glucose 95 (65-110) mg/dL Calcium 8.8 (8.4-10.2) mg/dL Total Bilirubin 1.2 (0.2-1.3) mg/dL AST 22 (17-59) U/L ALT 16 (6-50) U/L Alkaline Phosphatase 62 (38-126) U/L Total Protein 7.0 (6.3-8.2) g/dL Albumin 3.9 (3.5-5.1) g/dL All other labs normal. Imaging Additional studies: CT abdomen pelvis wo con Ordering provider: TA Ruby History: 74 years Male with . Unspecified abdominal pain, right side . Comparison: January 10, 2022 Technique: CT abdomen and pelvis without IV and without oral contrast. Automated exposure control and iterative reconstruction technique were employed. The dose- length product was 1046.89 mGy-cm. Findings: VISUALIZED LOWER CHEST: Normal. UPPER ABDOMINAL ORGANS: Liver: Normal. Gallbladder: Normal. Spleen: Normal. Calcified granulomas. Stomach/duodenum: Sliding hiatus hernia. Pancreas: Normal. Adrenals: Normal. Kidneys: 1.5 cm soft tissue density in the right kidney lower pole most likely a cyst. Small hypodense lesion seen in the left kidney upper pole most likely hemorrhagic cyst. Ultrasound evaluation advised. Bilateral PELVIC ORGANS: The bladder is underfilled with thickened wall. Evaluation for cystitis advised. BOWEL AND MESENTERY: Colon: No evidence of diverticulitis. Thickened appendix with surrounding fat stranding and minimal fluid is seen suggestive of appendicitis. The appendix measures 1.2 cm. Small Bowel: Normal. No obstruction. Peritoneum/mesentery: No free air or free fluid. No mesenteric lymphadenopathy. RETROPERITONEUM: Mild atheromatous disease of the abdominal aorta. No retroperitoneal lymphadenopathy. MUSCULOSKELETAL: Superficial soft tissues: Left fat-containing inguinal hernia. Small fat- containing umbilical hernia. Otherwise, The superficial soft tissues are normal. Bones: Age appropriate degenerative changes of the spine. Ossification seen near to the right femoral neck IMPRESSION: 1. Acute appendicitis with surrounding minimal fluid. No free air to suggest perforation.. Clinical correlation advised. 2. Sliding hiatus hernia. Fat-containing left inguinal hernia. Small fat- containing umbilical hernia.
[2024-08-25] MEDS: PANTOPRAZOLE SODIUM IV 40 MG VIAL IV PUSH (09:15)
[2024-08-25 12:04] LABS: Glucose Point of Care 82 mg/dl (65-105)
--- NOTE | 2024-08-25 14:19 | PM.IMPN ---
Progress Note: A&P Assessment and Plan (1) Acute appendicitis: Qualifiers: Acute appendicitis type: with localized peritonitis Appendicitis abscess presence: without abscess Appendicitis gangrene presence: without gangrene Appendicitis perforation presence: without perforation Qualified Code(s): K35.30 - Acute appendicitis with localized peritonitis, without perforation or gangrene Code(s): K35.80 - Unspecified acute appendicitis Status: Acute (2) Essential (primary) hypertension: Code(s): I10 - Essential (primary) hypertension Status: Acute (3) GERD (gastroesophageal reflux disease): Qualifiers: Esophagitis presence: esophagitis presence not specified Qualified Code(s): K21.9 - Gastro-esophageal reflux disease without esophagitis Code(s): K21.9 - Gastro-esophageal reflux disease without esophagitis Status: Acute (4) Diabetes: Qualifiers: Diabetes mellitus type: type 2 Diabetes mellitus detention insulin use: without exterminator use Diabetes mellitus complication status: without complication Qualified Code(s): E11.9 - Type 2 diabetes mellitus without complications Code(s): E11.9 - Type 2 diabetes mellitus without complications Status: Acute Plan Acute appendicitis Presented with abd pain CT AP showed acute appendicitis NPO, IVF and abx For appendectomy today HTN titrate home meds with clinical course DM2 SSI with accucheks, adjust with clinical course DVT prophylaxis on Sq Lovenox Subjective Date/time seen: 08/25/24 14:19 Interval history: Comfortable at bedside and awaiting surgery today Review of Systems Review of Systems: 12 systems were reviewed with pertinent positives and negatives per HPI. Except as documented in the HPI, all other systems were reviewed and are negative. Exam Narrative: Weight 96 kg BMI 30.4 Const: Other: Overweight, no acute distress, appears stated age HENMT: Other: Mucous membranes are tacky dry, no oral pharyngeal erythema, fair dentition Eyes: Other: Pupils are equal and reactive, no scleral icterus, no conjunctival pallor Neck: Other: No lymphadenopathy, trachea midline Resp: Other: Clear to auscultation bilaterally, no increased work breathing Cardio: Other: Regular rate, regular rhythm, 2+ bilateral radial pedal pulses GI: Other: Soft, normoactive bowel sounds, no organomegaly, voluntary guarding with palpation of the right lower quadrant due to pain from localized peritonitis, no tympany Skin: Other: No jaundice, no pallor Neuro: Other: Alert oriented, speech is clear, no facial asymmetry, no localizing neurologic deficits noted during the course of conversation Extrem: Other: No clubbing, cyanosis or edema Psych: Other: Appropriate mood and affect, pleasant and cooperative, judgment and insight intact Objective Data Vital Signs Vital Signs: Vital Signs - 24 hr 08/24/24 16:44 08/24/24 19:28 08/24/24 21:47 Temperature 98.1 F 97.8 F Pulse Rate 71 62 64 Respiratory Rate 18 18 16 Blood Pressure 131/55 L 114/62 138/62 Pulse Oximetry 98 98 98 Oxygen Delivery Room Air 08/25/24 06:00 Temperature 97.9 F Pulse Rate 57 L Respiratory Rate 14 Blood Pressure 135/59 L Pulse Oximetry 99 Oxygen Delivery Intake/Output Intake/Output: Intake & Output 08/22/24 08/23/24 08/24/24 08/25/24 23:59 23:59 23:59 23:59 Intake Total 170 1390.0 Balance 170 1390.0 Meds/Results Medications: Active Medications Generic Name Dose Route Start Last Admin Trade Name Freq PRN Reason Stop Dose Admin Dextrose 12.5 gm 08/25/24 01:23 Dextrose 50% 25 Gm/50 Ml Syringe IV PUSH PRN PRN Hypoglycemia Protocol Enoxaparin Sodium 40 mg 08/26/24 09:00 Enoxaparin 40 Mg/0.4 Ml Syringe SUB-Q DAILY CARLA Glucagon 1 mg 08/25/24 01:23 Glucagon For Inj 1 Mg Vial IM PRN PRN Hypoglycemia Protocol Glucose 15 gm 08/25/24 01:23 Glucose Oral Gel 15 Gm Of Glucse In 37.5 Gm Tube PO PRN PRN Hypoglycemia Protocol Piperacillin/Tazobactam/Dextrose 3.375 gm in 50 mls @ 100 mls/hr 08/25/24 00:00 08/25/24 12:04 Zosyn 3.375 Gm/Ns 50 Ml IVPB Infused Q6H CARLA Infusion Sodium Chloride 1,000 mls @ 100 mls/hr 08/24/24 19:00 08/25/24 06:27 Normal Saline Iv IV CONT 100 mls/hr .Q10H CARLA Administration Dextrose 1,000 mls @ 100 mls/hr 08/25/24 01:23 Dextrose 5% 1,000 Ml IVPB PRN PRN Hypoglycemia Protocol Insulin Aspart 2 - 5 units 08/25/24 06:00 08/25/24 12:02 Insulin Aspart (*Bkc) 100 Units/Ml SUB-Q Not Given Q6HR [facility] Protocol Morphine Sulfate 2 mg 08/25/24 01:31 Morphine Sulfate (*Crx) 2 Mg/Ml Inj IV PUSH Q4H PRN Pain Rated 7-10 Ondansetron HCl 4 mg 08/25/24 01:24 Ondansetron Inj 4 Mg/2 Ml Vial IV PUSH Q6H PRN Nausea And Vomiting Pantoprazole Sodium 40 mg 08/25/24 09:00 08/25/24 09:15 Pantoprazole Sodium Iv 40 Mg Vial IV PUSH 40 mg BID [facility] Administration Labs Labs: Laboratory Results - last 24 hr 08/24/24 08/24/24 08/24/24 17:25 17:30 22:34 WBC 8.2 RBC 4.46 L Hgb 13.3 L Hct 41.5 L MCV 93.0 MCH 29.8 MCHC 32.0 RDW 13.8 Plt Count 207 MPV 9.7 Immature Gran % (Auto) 0.1 Neut % (Auto) 67.8 Lymph % (Auto) 22.7 [place] % (Auto) 8.3 Eos % (Auto) 0.7 Baso % (Auto) 0.4 Lymph # (Auto) 1.87 [place] # (Auto) 0.7 H Eos # (Auto) 0.1 Baso # (Auto) 0.0 Abs Immat Gran (auto) 0.01 Absolute Neuts (auto) 5.6 Absolute Nucleated RBC 0.000 Nucleated RBC % 0.0 Sodium 140 Potassium 3.9 Chloride 104 Carbon Dioxide 28 Anion Gap 8 BUN 19 Creatinine 0.99 Estim Creat Clear Calc 67 Estimated GFR > 60 Glucose 95 POC Capillary Glucose 152 H Calcium 8.8 Total Bilirubin 1.2 AST 22 ALT 16 Alkaline Phosphatase 62 Total Protein 7.0 Albumin 3.9 Lipase 44 Urine Color Dark yellow Urine Appearance Clear Urine pH 5.5 Ur Specific [place] 1.026 Urine Protein Trace Urine Glucose (UA) Negative Urine Ketones Trace H Ur Blood (Man) Negative Urine Nitrate Negative Urine Bilirubin 1+ H Urine Urobilinogen 1.0 Leukocyte Esterase Rfl Trace H Urine RBC 0-2 Urine WBC 0-5 Ur Squamous Epith Cells None seen Urine Bacteria None seen Urine Casts 0-2 08/25/24 08/25/24 03:34 12:01 WBC RBC Hgb Hct MCV MCH MCHC RDW Plt Count MPV Immature Gran % (Auto) Neut % (Auto) Lymph % (Auto) [place] % (Auto) Eos % (Auto) Baso % (Auto) Lymph # (Auto) [place] # (Auto) Eos # (Auto) Baso # (Auto) Abs Immat Gran (auto) Absolute Neuts (auto) Absolute Nucleated RBC Nucleated RBC % Sodium Potassium Chloride Carbon Dioxide Anion Gap BUN Creatinine Estim Creat Clear Calc Estimated GFR Glucose POC Capillary Glucose 102 82 Calcium Total Bilirubin AST ALT Alkaline Phosphatase Total Protein Albumin Lipase Urine Color Urine Appearance Urine pH Ur Specific [place] Urine Protein Urine Glucose (UA) Urine Ketones Ur Blood (Man) Urine Nitrate Urine Bilirubin Urine Urobilinogen Leukocyte Esterase Rfl Urine RBC Urine WBC Ur Squamous Epith Cells Urine Bacteria Urine Casts Quality VTE Prophylaxis VTE prophylaxis: mechanical ordered (SCDs)
--- NOTE | 2024-08-25 15:55 | PC.NURSE ---
To OR per [ ], IV [ ]. Report given to [GUILLERMO].
[2024-08-25] MEDS: LACTATED RINGERS 1,000 ML 30 ML IV CONT (16:20)
[2024-08-25] MEDS: ACETAMINOPHEN 500 MG TABLET 1000 MG PO (16:25)
[2024-08-25 16:31] LABS: Glucose Point of Care 96 mg/dl (65-105)
--- NOTE | 2024-08-25 16:53 | WPDHPUPDATE1 ---
History and Physical Update Update Date/Time: 08/25/24 16:53 History and Physical has been reviewed, including an updated exam of the patient. There are NO changes in the patient's condition. Risks, benefits, and alternatives have been discussed and questions answered. Patient agrees to proceed with procedure.
--- NOTE | 2024-08-25 17:08 | P.PNAN_ITS ---
Anes - Initial Pre Proc Eval Procedure: Operation Date: 08/25/24 15:30 Proposed Procedures p Laparoscopic Appendectomy - Stanley Holliday MD Date/Time: 08/25/24 17:08 Surgeon: Kacy Adam MD Pre Op Diagnosis: Acute appendicitis Patient Data Age: 74 Gender: M Height: 1.78 m Weight: 96 kg Last Vital Signs Temp 37.2 C 08/25/24 16:20 Pulse 64 08/25/24 16:20 Resp 16 08/25/24 16:20 BP 169/57 H 08/25/24 16:20 Pulse Ox 99 08/25/24 16:20 O2 Del Method Room Air 08/25/24 16:20 Allergies Allergy/AdvReac Type Severity Reaction Status Date / Time No Known Allergies Allergy Verified 08/25/24 16:28 Home Medications ?Medication ?Instructions ?Recorded ?Confirmed ?Type aspirin 81 mg tablet,delayed 81 mg PO DAILY 12/24/19 08/24/24 History release (Adult Aspirin Regimen) cholecalciferol (vitamin D3) 50 50 mcg PO DAILY 12/24/19 08/24/24 History mcg (2,000 unit) capsule metoprolol succinate 50 mg 50 mg PO QAM #90 tabs 08/13/23 08/24/24 Rx tablet,extended release 24 hr pantoprazole 40 mg tablet,delayed See Rx Instructions .Route 09/10/23 08/24/24 Rx release .COMPLEX #180 tabs amlodipine 5 mg tablet 5 mg PO DAILY #90 tabs 07/12/24 08/24/24 Rx hydrochlorothiazide 12.5 mg capsule 12.5 mg PO DAILY #90 caps 07/16/24 08/24/24 Rx lisinopril 10 mg tablet 10 mg PO DAILY #90 tabs 07/16/24 08/24/24 Rx metformin 500 mg tablet,extended 500 mg PO DAILY #90 tabs 07/16/24 08/24/24 Rx release 24 hr tamsulosin 0.4 mg capsule 0.4 mg PO DAILY #7 caps 08/24/24 08/24/24 Rx Laboratory Tests 08/24/24 08/24/24 08/24/24 17:25 17:30 22:34 WBC 8.2 K/mm3 (4.5-10.0) RBC 4.46 L M/mm3 (4.6-6.20) Hgb 13.3 L g/dL (14.0-18.0) Hct 41.5 L % (42.0-52.0) MCV 93.0 fl (80-100) MCH 29.8 pg (26-34) MCHC 32.0 g/dl (32-36) RDW 13.8 % (11.5-14.5) Plt Count 207 k/mm3 (150-375) MPV 9.7 fl (7.4-10.4) Immature Gran % (Auto) 0.1 % (0-0.5) Neut % (Auto) 67.8 % (45.5-73.1) Lymph % (Auto) 22.7 % (18.3-44.2) [place] % (Auto) 8.3 % (2.6-8.5) Eos % (Auto) 0.7 % (0-4.4) Baso % (Auto) 0.4 % (0.2-1.2) Lymph # (Auto) 1.87 K/mm3 (0.9-3.2) [place] # (Auto) 0.7 H K/mm3 (0.1-0.6) Eos # (Auto) 0.1 K/mm3 (0-0.3) Baso # (Auto) 0.0 K/mm3 (0.0-0.1) Abs Immat Gran (auto) 0.01 K/mm3 (0.00-0.031) Absolute Neuts (auto) 5.6 K/mm3 (1.3-6.7) Absolute Nucleated RBC 0.000 K/mm3 (0.0-0.012) Nucleated RBC % 0.0 % (0.0-0.2) Sodium 140 mmol/L (137-145) Potassium 3.9 mmol/L (3.4-5.0) Chloride 104 mmol/L (98-107) Carbon Dioxide 28 mmol/L (22-30) Anion Gap 8 mmol/L (4-12) BUN 19 mg/dL (9-20) Creatinine 0.99 mg/dL (0.7-1.3) Estim Creat Clear Calc 67 ml/min Estimated GFR > 60 (59 - ) Glucose 95 mg/dL (65-110) POC Capillary Glucose 152 H mg/dl (65-105) Calcium 8.8 mg/dL (8.4-10.2) Total Bilirubin 1.2 mg/dL (0.2-1.3) AST 22 U/L (17-59) ALT 16 U/L (6-50) Alkaline Phosphatase 62 U/L (38-126) Total Protein 7.0 g/dL (6.3-8.2) Albumin 3.9 g/dL (3.5-5.1) Lipase 44 U/L (23-300) Urine Color Dark yellow (Yellow) Urine Appearance Clear (Clear) Urine pH 5.5 (5.0-9.0) Ur Specific [place] 1.026 (1.001-1.035) Urine Protein Trace mg/dL (Negative) Urine Glucose (UA) Negative mg/dL (Negative) Urine Ketones Trace H mg/dL (Negative) Ur Blood (Man) Negative (Negative) Urine Nitrate Negative (Negative) Urine Bilirubin 1+ H (Negative) Urine Urobilinogen 1.0 mg/dL (<2.0) Leukocyte Esterase Rfl Trace H SHOLA/UL (Negative) Urine RBC 0-2 /hpf (0-2) Urine WBC 0-5 /hpf (0-3) Ur Squamous Epith Cells None seen /hpf (Few) Urine Bacteria None seen /hpf Urine Casts 0-2 08/25/24 08/25/24 08/25/24 03:34 12:01 16:27 WBC RBC Hgb Hct MCV MCH MCHC RDW Plt Count MPV Immature Gran % (Auto) Neut % (Auto) Lymph % (Auto) [place] % (Auto) Eos % (Auto) Baso % (Auto) Lymph # (Auto) [place] # (Auto) Eos # (Auto) Baso # (Auto) Abs Immat Gran (auto) Absolute Neuts (auto) Absolute Nucleated RBC Nucleated RBC % Sodium Potassium Chloride Carbon Dioxide Anion Gap BUN Creatinine Estim Creat Clear Calc Estimated GFR Glucose POC Capillary Glucose 102 mg/dl 82 mg/dl 96 mg/dl (65-105) (65-105) (65-105) Calcium Total Bilirubin AST ALT Alkaline Phosphatase Total Protein Albumin Lipase Urine Color Urine Appearance Urine pH Ur Specific [place] Urine Protein Urine Glucose (UA) Urine Ketones Ur Blood (Man) Urine Nitrate Urine Bilirubin Urine Urobilinogen Leukocyte Esterase Rfl Urine RBC Urine WBC Ur Squamous Epith Cells Urine Bacteria Urine Casts Patient hx anesthesia problems: none Family hx anesthesia problems: none Results Review: All pre-operative results and documents have been reviewed as part of the pre- operative evaluation. [facility] Past Medical History Medical History Achalasia Diabetes Umbilical hernia Acquired deviated nasal septum Dyskinesia of esophagus Other seasonal allergic rhinitis Abdominal aortic aneurysm without rupture Diverticula of colon Benign esophageal stricture Esophageal diverticulum Benign familial tremor Cervicalgia GERD (gastroesophageal reflux disease) Obesity (BMI 30.0-34.9) Essential (primary) hypertension Other spondylosis, cervical region Unspecified asthma, uncomplicated Allergy induced Surgical History Surgical History History of esophageal dilatation Hx of LASIK History of esophageal hernia repair S/P inguinal hernia repair Right inguinal hernia repair as a child, with recurrence in 2015 that was repaired robotically with mesh, and recurrence again with open repair with mesh in 2021 Family History Family History Father Diabetes mellitus Family history of Parkinson's disease Sibling Family history of lupus erythematosus Other Family history of arthritis Family history of chronic obstructive pulmonary disease Social History Social History Social History: The patient lives with his of 51 years. 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 He drinks alcohol on occasion and in moderation. He denies illicit substance use. He briefly when he was young. Code status: Full code Surrogate decision maker: Cece () Smoking packs per day: 2 Smoking cigarettes per day: 40.0 Years smoked: 5 Smoking pack-years: 10.00 Smoking status: Former smoker Tobacco type: cigarettes Smoking end date: 10/26/72 Alcohol intake: current Drinks per week: 5 Substance use: never Substance use type: does not use Do You Feel Safe in your Home?: Yes Lack of Transportation: No Lack of Food: Never True Current Housing: I Have Housing Concerned About Future Housing: No Difficulty Paying Gas/Electric Bills: No Difficulty Paying for Meds: No Currently Unemployed: No Education: Bachelor's Degree Difficulty w/ Childcare or Family Care: No Living arrangements: with family Additional living arrangements comments: Gender identity (if verbalized by the patient): Male Spiritual care concerns: No Anes - Eval Final PreProcedure Day of Procedure 08/25/24 17:08 Patient weight: obese Heart: regular rate and rhythm Lungs: clear to auscultation Airway: Mallampati scale class II Neurological: alert and oriented Last oral intake: >/= 8 hours ASA classification: III Emergent: no Anesthetic plan: proceed Anesthesia type and monitoring: general ETT and standard monitoring Results Review: All pre-operative results and documents have been reviewed as part of the pre- operative evaluation. Informed Consent: The patient's anesthetic plan and its attendant risks and benefits were discussed with the patient/family/POA. Questions were solicited and answers provided to the satisfaction of the patient/family/POA.
[2024-08-25] MEDS: LIDO 1%/EPINEPHRINE 1:100,000 20 ML VIAL 30 ML INFILTRATE (17:24)
[2024-08-25] MEDS: BUPivacaine HCL 0.5% 10 ML AMP 30 ML INFILTRATE (17:24)
[2024-08-25] MEDS: fentaNYL CITRATE INJ (*CRX) 100 MCG/2 ML VIAL 25 MCG IV PUSH ×2 (18:38→18:47)
[2024-08-25 18:47] LABS: Glucose Point of Care 127 mg/dl (65-105)
--- NOTE | 2024-08-25 19:35 | P.OP_ITS ---
Procedure Note - Detailed Date of Procedure 08/25/24 Pre-op Diagnosis Acute appendicitis Post-op Diagnosis Same Procedure Performed Laparoscopic appendectomy Surgeon Stanley Holliday MD Anesthesia General Indications Patient is a 74-year-old gentleman presented to the emergency with a 2 day history of worsening right lower quadrant abdominal pain. He had a normal white blood cell count. Did not appear toxic. He did have some mild tenderness to palpation right lower quadrant the abdomen. CT scan abdomen pelvis was performed showing a dilated and inflamed appendix without evidence of perforation or periappendiceal abscess. He presents now for a laparoscopic appendectomy. Findings Patient had acutely inflamed appendix without perforation or periappendiceal abscess. Base of the appendix was viable without evidence of inflammation. Description of Procedure After informed consent was obtained patient brought to the operating room was placed supine position and general endotracheal anesthesia was administered. A Leal catheter was placed decompress the bladder. The abdomen was then prepped and draped usual sterile fashion. A time-out was then performed correctly identifying the patient as well as procedure to be performed. He was already on scheduled IV antibiotics. Under the abdomen the left upper quadrant utilizing a 5mm Optiview port. Once inside the abdomen insufflated to adequate pneum operitoneum of 15mmHg of CO2. There were no adhesions to obscure my view of the right lower quadrant the abdomen. I could see the patient had intact prior right inguinal hernia repair with mesh. I then placed a 12mm periumbilical trocar port was a 5mm suprapubic trocar port and a 5mm right lower quadrant trocar port all under direct visualization. The appendix was visualized the right lower quadrants of the abdomen just lateral to the cecum. Utilizing laparoscopic instruments I was able to elevate the appendix and see that there was no perforation or gangrene of the appendiceal wall. There is no periappendiceal abscess. I then made a defect through the mesoappendix with a laparoscopic [place] dissected. I was then able to use a 45mm Endo-JAMES stapler vascular load to divide the mesoappendix. The base of the appendix was completely viable without evidence of inflammation but the distal 2/3 the appendix was inflamed. I then used a GI reload to the Endo-JAMES stapler to divide the appendix flush with the cecum. I then removed the appendix from the abdomen after placed into an Endo-Catch bag. The appendix was sent to pathology for examination I then irrigated out the right lower quadrant the abdomen. The staple lines on the mesoappendix and the cecum were intact without evidence of any bleeding. I then irrigated out the right lower quadrant the abdomen the pelvis. Aspirated the fluid from those areas. I then removed all the trocar ports under direct visualization all port sites appeared hemostatic. The abdomen was allowed to decompress. The 12mm periumbilical trocar port fascial defect was then closed utilizing 0 Vicryl suture at the fascial level. The skin edges in all the port sites were then approximated utilizing a running subcuticular 4-0 Monocryl suture. The incisions were then cleaned and then skin glue was applied. The patient tolerated the procedure well no complications. All sponges, needles, and instrument counts were correct at the end procedure. EBL was _20__cc. The patient was awakened and taken to recovery in stable and satisfactory condition. Implants None Estimated Blood Loss 20 Drains No Packing No Pathology Yes (Appendix to pathology) Complications No immediate complications Condition Stable Disposition PACU [facility] Billing Surgery - Charge Forward: Surgery Billing
[2024-08-25 20:42] LABS: Glucose Point of Care 157 mg/dl (65-105)
[2024-08-26] MEDS: SODIUM CHLORIDE 0.9% IV 1,000 ML 100 ML IV CONT (03:00)
[2024-08-26 04:00] VITALS: BP 140/69; PULSE 71; RESP 16; TEMP 36.7; O2SAT 95
[2024-08-26 07:01] LABS: Basophils Percent Auto 0.1 % (0.2-1.2); Hematocrit 37.4 % (42.0-52.0); Hemoglobin 11.9 g/dL (14.0-18.0); Immature Granulocyte Absolute 0.03 K/mm3 (0.00-0.031); Immature Granulocyte Percent A 0.4 % (0-0.5); Lymphocytes Absolute Auto 0.69 K/mm3 (0.9-3.2); Mean Corpuscular HGB Conc 31.8 g/dl (32-36); Mean Corpuscular Hemoglobin 29.6 pg (26-34); Mean Platelet Volume 10.2 fl (7.4-10.4); Monocytes Absolute Auto 0.5 K/mm3 (0.1-0.6); Monocytes Percent Auto 6.2 % (2.6-8.5); Neutrophils Absolute Auto 6.5 K/mm3 (1.3-6.7); Neutrophils Percent Auto 84.3 % (45.5-73.1); Platelet Count Result 209 k/mm3 (150-375); Red Blood Count 4.02 M/mm3 (4.6-6.20); Red Cell Distribution Width 13.5 % (11.5-14.5); White Blood Count 7.7 K/mm3 (4.5-10.0)
[2024-08-26 07:13] LABS: Alanine Aminotransferase 13 U/L (6-50); Albumin Level 3.2 g/dL (3.5-5.1); Alkaline Phosphatase 54 U/L (38-126); Anion Gap 3 mmol/L (4-12); Aspartate Amino Transferase 18 U/L (17-59); Bilirubin,Total 0.6 mg/dL (0.2-1.3); Blood Urea Nitrogen 15 mg/dL (9-20); Calcium 8.1 mg/dL (8.4-10.2); Carbon Dioxide 28 mmol/L (22-30); Chloride 106 mmol/L (98-107); Estimated CRCL calculation 76 ml/min; Estimated Glomerular Filt Rate > 60; Glucose 142 mg/dL (65-110); Magnesium 1.9 mg/dL (1.6-2.3); Potassium 3.9 mmol/L (3.4-5.0); Sodium 137 mmol/L (137-145)
[2024-08-26 07:44] LABS: Glucose Point of Care 141 mg/dl (65-105)
[2024-08-26] MEDS: PANTOPRAZOLE SODIUM IV 40 MG VIAL IV PUSH (08:41)
[2024-08-26] MEDS: ENOXAPARIN 40 MG/0.4 ML SYRINGE SUB-Q (08:41)
[2024-08-26 10:16] VITALS: BP 138/67; PULSE 66; RESP 16; TEMP 36.7; O2SAT 96
[2024-08-26 11:42] LABS: Glucose Point of Care 123 mg/dl (65-105)
--- NOTE | 2024-08-26 12:02 | PM.PNGS ---
Progress Note: A&P Assessment and Plan (1) Acute appendicitis: Qualifiers: Acute appendicitis type: with localized peritonitis Appendicitis abscess presence: without abscess Appendicitis gangrene presence: without gangrene Appendicitis perforation presence: without perforation Qualified Code(s): K35.30 - Acute appendicitis with localized peritonitis, without perforation or gangrene Code(s): K35.80 - Unspecified acute appendicitis Status: Acute Assessment and Plan: S/p laparoscopic appendectomy for uncomplicated appendicitis. No perforation found during surgery. He is doing well postop day 1. He is surgically stable for discharge with no antibiotics needed. He can follow-up with Dr. Holliday in our office in 2 weeks. Plan I have discussed the patient's case and plan of care with Dr. Holliday. Subjective Subjective Date/Time Seen: 08/26/24 12:02 Patient reports: no new complaints, feels better, tolerating a regular diet, voiding w/o difficulty, flatus and afebrile Interval history: Patient doing well today. Minimal incisional pain this morning. Ambulating without issues. Exam Const: General: comfortable and no acute distress Orientation/consciousness: patient oriented x3 GI: Inspection: non-distended and incision (incisions dry and intact) GI Palp: Yes Soft to palpation, Yes Tenderness to palpation present (GI) (incisional) and No Guarding due to palpation present (GI) Auscultation: normal bowel sounds Neuro: General: moves all extremities and no focal motor deficits Extrem: General: no calf tenderness and no edema Psych: Mental Status: mental status grossly normal Insight: Good insight present (Psych) Objective Data Vital Signs Vital Signs: Vital Signs - 24 hr 08/25/24 14:00 08/25/24 16:20 08/25/24 18:33 Temperature 96.4 F L 99.0 F 97.1 F L Pulse Rate 58 L 64 80 Respiratory Rate 18 16 16 Blood Pressure 141/59 H 169/57 H 170/75 H Pulse Oximetry 99 99 100 Oxygen Delivery Room Air Simple Face Mask Oxygen Flow Rate 08/25/24 18:45 08/25/24 19:00 08/25/24 19:15 Temperature Pulse Rate 69 70 74 Respiratory Rate 12 18 20 Blood Pressure 159/70 H 153/68 H 153/68 H Pulse Oximetry 100 96 96 Oxygen Delivery Simple Face Mask Room Air Room Air Oxygen Flow Rate 08/25/24 19:30 08/25/24 20:29 08/25/24 23:53 Temperature 97.9 F 98.0 F Pulse Rate 74 79 78 Respiratory Rate 20 16 16 Blood Pressure 150/64 H 160/64 H 137/64 Pulse Oximetry 97 96 95 Oxygen Delivery Room Air Oxygen Flow Rate 08/26/24 04:00 08/26/24 08:00 08/26/24 10:16 Temperature 98.1 F 98.0 F Pulse Rate 71 66 Respiratory Rate 16 16 Blood Pressure 140/69 138/67 Pulse Oximetry 95 96 Oxygen Delivery Room Air Oxygen Flow Rate Intake/Output Intake/Output: Intake & Output 08/23/24 08/24/24 08/25/24 08/26/24 23:59 23:59 23:59 23:59 Intake Total 170 2490.0 540 Output Total 600 Balance 170 2490.0 -60 Meds/Results Medications: Active Medications Generic Name Dose Route Start Last Admin Trade Name Freq PRN Reason Stop Dose Admin Acetaminophen 1,000 mg 08/25/24 19:41 Acetaminophen 500 Mg Tablet PO Q6H PRN Mild Pain (1-3) or Fever Hydrocodone Bitart/Acetaminophen 1 tab 08/25/24 19:41 Hydrocodone/Acetaminophen (*Crx) 5-325 Mg Tablet PO Q4H PRN Pain Rated 4-6 Dextrose 12.5 gm 08/25/24 01:23 Dextrose 50% 25 Gm/50 Ml Syringe IV PUSH PRN PRN Hypoglycemia Protocol Enoxaparin Sodium 40 mg 08/26/24 09:00 08/26/24 08:41 Enoxaparin 40 Mg/0.4 Ml Syringe SUB-Q 40 mg DAILY CARLA Administration Fentanyl Citrate 25 mcg 08/25/24 17:07 08/25/24 18:47 Fentanyl Citrate Inj (*Crx) 100 Mcg/2 Ml Vial IV PUSH 25 mcg Q2M PRN Administration Pain Glucagon 1 mg 08/25/24 01:23 Glucagon For Inj 1 Mg Vial IM PRN PRN Hypoglycemia Protocol Glucose 15 gm 08/25/24 01:23 Glucose Oral Gel 15 Gm Of Glucse In 37.5 Gm Tube PO PRN PRN Hypoglycemia Protocol Sodium Chloride 1,000 mls @ 100 mls/hr 08/24/24 19:00 08/26/24 11:57 Normal Saline Iv IV CONT Not Given .Q10H CARLA Dextrose 1,000 mls @ 100 mls/hr 08/25/24 01:23 Dextrose 5% 1,000 Ml IVPB PRN PRN Hypoglycemia Protocol Insulin Aspart 2 - 5 units 08/26/24 08:00 08/26/24 11:57 Insulin Aspart (*Bkc) 100 Units/Ml SUB-Q Not Given TIDWM [facility] Protocol Morphine Sulfate 2 mg 08/25/24 01:31 Morphine Sulfate (*Crx) 2 Mg/Ml Inj IV PUSH Q4H PRN Pain Rated 7-10 Ondansetron HCl 4 mg 08/25/24 01:24 Ondansetron Inj 4 Mg/2 Ml Vial IV PUSH Q6H PRN Nausea And Vomiting Ondansetron HCl 4 mg 08/25/24 17:07 Ondansetron Inj 4 Mg/2 Ml Vial IV PUSH ONCE PRN Nausea Oxycodone HCl 5 mg 08/25/24 17:07 Oxycodone Hcl (*Crx) 5 Mg Tab Ir PO ONCE PRN Pain Oxycodone HCl 5 mg 08/25/24 19:41 Oxycodone Hcl (*Crx) 5 Mg Tab Ir PO Q4H PRN Pain Rated 7-10 Pantoprazole Sodium 40 mg 08/25/24 09:00 08/26/24 08:41 Pantoprazole Sodium Iv 40 Mg Vial IV PUSH 40 mg BID [facility] Administration Labs Labs: Laboratory Results - last 24 hr 08/25/24 08/25/24 08/25/24 12:01 16:27 18:45 WBC RBC Hgb Hct MCV MCH MCHC RDW Plt Count MPV Immature Gran % (Auto) Neut % (Auto) Lymph % (Auto) [place] % (Auto) Eos % (Auto) Baso % (Auto) Lymph # (Auto) [place] # (Auto) Eos # (Auto) Baso # (Auto) Abs Immat Gran (auto) Absolute Neuts (auto) Absolute Nucleated RBC Nucleated RBC % Sodium Potassium Chloride Carbon Dioxide Anion Gap BUN Creatinine Estim Creat Clear Calc Estimated GFR Glucose POC Capillary Glucose 82 96 127 H Calcium Magnesium Total Bilirubin AST ALT Alkaline Phosphatase Total Protein Albumin 08/25/24 08/26/24 08/26/24 20:38 06:08 07:41 WBC 7.7 RBC 4.02 L Hgb 11.9 L Hct 37.4 L MCV 93.0 MCH 29.6 MCHC 31.8 L RDW 13.5 Plt Count 209 MPV 10.2 Immature Gran % (Auto) 0.4 Neut % (Auto) 84.3 H Lymph % (Auto) 9.0 L [place] % (Auto) 6.2 Eos % (Auto) 0.0 Baso % (Auto) 0.1 L Lymph # (Auto) 0.69 L [place] # (Auto) 0.5 Eos # (Auto) 0.0 Baso # (Auto) 0.0 Abs Immat Gran (auto) 0.03 Absolute Neuts (auto) 6.5 Absolute Nucleated RBC 0.000 Nucleated RBC % 0.0 Sodium 137 Potassium 3.9 Chloride 106 Carbon Dioxide 28 Anion Gap 3 L BUN 15 Creatinine 0.87 Estim Creat Clear Calc 76 Estimated GFR > 60 Glucose 142 H POC Capillary Glucose 157 H 141 H Calcium 8.1 L Magnesium 1.9 Total Bilirubin 0.6 AST 18 ALT 13 Alkaline Phosphatase 54 Total Protein 6.0 L Albumin 3.2 L 08/26/24 11:39 WBC RBC Hgb Hct MCV MCH MCHC RDW Plt Count MPV Immature Gran % (Auto) Neut % (Auto) Lymph % (Auto) [place] % (Auto) Eos % (Auto) Baso % (Auto) Lymph # (Auto) [place] # (Auto) Eos # (Auto) Baso # (Auto) Abs Immat Gran (auto) Absolute Neuts (auto) Absolute Nucleated RBC Nucleated RBC % Sodium Potassium Chloride Carbon Dioxide Anion Gap BUN Creatinine Estim Creat Clear Calc Estimated GFR Glucose POC Capillary Glucose 123 H Calcium Magnesium Total Bilirubin AST ALT Alkaline Phosphatase Total Protein Albumin
--- NOTE | 2024-08-26 13:12 | P.DS_ITS ---
DS: Admitting Diagnosis Discharge Date 08/26/24 Admitting Diagnosis abd pain DS: Discharge Diagnosis Discharge Diagnosis (1) Acute appendicitis: Qualifiers: Acute appendicitis type: with localized peritonitis Appendicitis abscess presence: without abscess Appendicitis gangrene presence: without gangrene Appendicitis perforation presence: without perforation Qualified Code(s): K35.30 - Acute appendicitis with localized peritonitis, without perforation or gangrene Code(s): K35.80 - Unspecified acute appendicitis Status: Acute DS: Summary Hospital Course Hospital Course: 74-year-old male with a past medical history essential hypertension, hyperlipidemia, diabetes, hiatal hernia repair, and bilateral inguinal hernia repair who presented to the [facility] after CT scan demonstrated acute appendicitis. Gen surgery was consulted adn patient underwent appendectomy. Tolerating diet and discharged home today. will continue follow up with Gen surgery. F/u with PCP in 3-5 days F/u with gen surgery as instructed Time Spent with Patient Time attestation: Total time spent providing and/or coordinating discharge services: DS: Data Data Completed and Pending Pending studies at discharge: Pending at discharge 08/25/24 18:11 Surgical [PTH] Routine Labs on day of discharge: Labs from last 24 hours 08/26/24 08/26/24 08/26/24 11:39 07:41 06:08 WBC 7.7 RBC 4.02 L Hgb 11.9 L Hct 37.4 L MCV 93.0 MCH 29.6 MCHC 31.8 L RDW 13.5 Plt Count 209 MPV 10.2 Immature Gran % (Auto) 0.4 Neut % (Auto) 84.3 H Lymph % (Auto) 9.0 L [place] % (Auto) 6.2 Eos % (Auto) 0.0 Baso % (Auto) 0.1 L Lymph # (Auto) 0.69 L [place] # (Auto) 0.5 Eos # (Auto) 0.0 Baso # (Auto) 0.0 Abs Immat Gran (auto) 0.03 Absolute Neuts (auto) 6.5 Absolute Nucleated RBC 0.000 Nucleated RBC % 0.0 Sodium 137 Potassium 3.9 Chloride 106 Carbon Dioxide 28 Anion Gap 3 L BUN 15 Creatinine 0.87 Estim Creat Clear Calc 76 Estimated GFR > 60 Glucose 142 H POC Capillary Glucose 123 H 141 H Calcium 8.1 L Magnesium 1.9 Total Bilirubin 0.6 AST 18 ALT 13 Alkaline Phosphatase 54 Total Protein 6.0 L Albumin 3.2 L 08/25/24 08/25/24 08/25/24 20:38 18:45 16:27 WBC RBC Hgb Hct MCV MCH MCHC RDW Plt Count MPV Immature Gran % (Auto) Neut % (Auto) Lymph % (Auto) [place] % (Auto) Eos % (Auto) Baso % (Auto) Lymph # (Auto) [place] # (Auto) Eos # (Auto) Baso # (Auto) Abs Immat Gran (auto) Absolute Neuts (auto) Absolute Nucleated RBC Nucleated RBC % Sodium Potassium Chloride Carbon Dioxide Anion Gap BUN Creatinine Estim Creat Clear Calc Estimated GFR Glucose POC Capillary Glucose 157 H 127 H 96 Calcium Magnesium Total Bilirubin AST ALT Alkaline Phosphatase Total Protein Albumin Preliminary micro results at discharge 08/24/24 18:26 Blood Culture - Preliminary Blood 08/24/24 18:26 Blood Culture - Preliminary Blood Discharge Plan Discharge Attending physician on discharge: Kacy Adam Consulting providers: Stanley Holliday Discharging Clinician: Kacy Adam Anticipated Discharge Date/Time: 08/26/24 12:56 Patient Disposition: Home Activity: may shower and other - see discharge instructions Diet: as tolerated Wound Care Instructions: incision open to air Discharge Instructions: DISCHARGE INSTRUCTION SHEET FOR HERNIA, GALLBLADDER AND APPENDIX SURGERIES DR. Holliday 1. May shower in 24 hours, no soaking in bath x 2weeks. 2. Call office for: * Wound increasingly painful or bleeding * Vomiting * Fever of greater than 101 degrees 3. If no bowel movement for three days, take 1 oz. (30 ml) Milk of Magnesia or MiraLax 17g 1 to 2 times daily. 4. No heavy lifting > 10-15 pounds x 2 weeks for laparoscopic cholecystectomy or appendectomy. 5. No driving for 3 days or while taking narcotic pain medications. 6. Ice to surgical site for 48 hours (30 min on, then 30 min off). 7. Up walking 10-30 minutes three times per day. 8. Resume previous home medications. 9. Follow-up with Dr. Holliday in 2 weeks in our office. ([phone]) we will call you with a time and date, call if you do not hear from us in the next few days. 10. Oral pain medications prescription to be sent to pharmacy. Take Tylenol 500mg every 6 hours and Ibuprofen 600mg every 6 hours for the first 2 days, then as needed. Patient Instructions: Antibiotic Form Patient Language: Serbian Stand Alone Forms: General Discharge Information Follow-up/Referrals: Stanley Holliday MD [Physician] - 2 Weeks Discharge Medications: New hydrocodone-acetaminophen 5-325 mg Tablet 1 tablet PO Q6H PRN (Reason: Pain Rated 4-6) Qty: 7 0RF Continued aspirin [Adult Aspirin Regimen] 81 mg tablet,delayed release (DR/EC) 81 mg PO DAILY cholecalciferol (vitamin D3) 50 mcg (2,000 unit) capsule 50 mcg PO DAILY metoprolol succinate 50 mg tablet extended release 24 hr 50 mg PO QAM Qty: 90 3RF tamsulosin 0.4 mg capsule 0.4 mg PO DAILY Qty: 7 0RF pantoprazole 40 mg tablet,delayed release (DR/EC) See Rx Instructions .ROUTE .COMPLEX Qty: 180 3RF Dose Instruction: 40 MG ORALLY TWICE A DAY Rx Instructions: 40 MG ORALLY TWICE A DAY amlodipine 5 mg tablet 5 mg PO DAILY Qty: 90 0RF Rx Instructions: LAST REFILL NEEDS, APPOINTMENT metformin 500 mg tablet extended release 24 hr 500 mg PO DAILY Qty: 90 0RF Rx Instructions: TAKE 1 TABLET BY MOUTH EVERY DAY IN AM hydrochlorothiazide 12.5 mg capsule 12.5 mg PO DAILY Qty: 90 0RF lisinopril 10 mg tablet 10 mg PO DAILY Qty: 90 0RF Date of admission: 08/25/24 07:17 Primary Care Provider: Tariq Lambert Admitting Provider: Kacy Adam Attending physician on admission: Kacy Adam Condition: Stable
== END 2024-08-26 14:10 | disposition home or self-care (01) | DRG 399 ==
LOC: ANHED 19:04 → ANH3MEDSUR 19:33
PROVIDERS: Surgery; Admitting Provider Internal Medicine; Emergency Provider Physician Assistant; PCP Family Medicine; Visit Provider Internal Medicine
PROC: 0DTJ4ZZ Resection of Appendix, Percutaneous Endoscopic Approach (ICD-10-PCS; CPT 44970; principal; 2024-08-25 15:30)
DX: K35.30 Acute appendicitis with localized peritonitis, without perforation or gangrene (principal); K21.9 Gastro-esophageal reflux disease without esophagitis; I10 Essential (primary) hypertension; E11.9 Type 2 diabetes mellitus without complications; E78.5 Hyperlipidemia, unspecified; Z87.891 Personal history of nicotine dependence; Z79.84 Long term (current) use of oral hypoglycemic drugs
CPT/HCPCS: 36415; 80053; 81001; 82948; 83690; 83735; 85025; 87040; 88304; 93005; 96365; 99285; A9270; G0378; J0360; J1100; J1650; J2003; J2004; J2405; J2470; J2543; J2704; J3010; J7030; J7120

== ENCOUNTER 2024-12-13 09:05 | Emergency (ER) | payer MEDICARE, OTHER, SELFPAY ==
--- NOTE | ~2024-12-13 | XR_ITS ---
CHEST RADIOGRAPH, PA AND LATERAL CLINICAL HISTORY: productive cough/brown phlegm/fatigue, cough x 2 weeks . COMPARISON: 12/10/2010 TECHNIQUE: PA and lateral views of the chest. FINDINGS The cardiomediastinal silhouette is unremarkable. The lungs are clear. IMPRESSION: No focal infiltrate or effusion. Reviewed, dictated and finalized at location A.
--- NOTE | 2024-12-13 09:08 | ED_ITS ---
HPI - URI/Sore Throat General Chief Complaint: Upper Respiratory Infection Stated Complaint: COLD SYMPTOMS Time Seen by Provider: 12/13/24 09:07 Source: patient Mode of arrival: ambulatory Limitations: no limitations History of Present Illness HPI Narrative: Kimo is a 74-year-old male patient presenting to the clinic today with complaints of nasal congestion, sinus pressure, active cough, fatigue, and mild shortness of breath. He reports symptoms started about 2 weeks ago. Denies any known fever, chills, or body aches. States he just can not get over the cold. Cough is productive with some brown phlegm. Denies any chest pain. History bronchitis and pneumonia in the past. He is a former smoker. MD elicited complaint: sore throat and nasal congestion Related Data Home Medications ?Medication ?Instructions ?Recorded ?Confirmed ?Last Taken ?Type aspirin 81 mg tablet,delayed 81 mg PO DAILY 12/24/19 09/22/24 08/23/24 History release (Adult Aspirin Regimen) cholecalciferol (vitamin D3) 50 50 mcg PO DAILY 12/24/19 09/22/24 08/23/24 History mcg (2,000 unit) capsule Allergies Allergy/AdvReac Type Severity Reaction Status Date / Time No Known Allergies Allergy Verified 12/13/24 09:09 Review of Systems Review of Systems: Pertinent positives per HPI. Patient denies any fever, chills, rash, headache, visual changes, dizziness, cough, shortness of breath, chest pain, palpitations, nausea, vomiting, diarrhea, constipation, abdominal pain, or any urinary issues. [facility] Past Medical History Medical History Achalasia Diabetes Umbilical hernia Acquired deviated nasal septum Dyskinesia of esophagus Other seasonal allergic rhinitis Abdominal aortic aneurysm without rupture Diverticula of colon Benign esophageal stricture Esophageal diverticulum Benign familial tremor Cervicalgia GERD (gastroesophageal reflux disease) Obesity (BMI 30.0-34.9) Essential (primary) hypertension Other spondylosis, cervical region Unspecified asthma, uncomplicated Allergy induced Surgical History Surgical History History of appendectomy Laparoscopic 2024 History of esophageal dilatation Hx of LASIK History of esophageal hernia repair S/P inguinal hernia repair Right inguinal hernia repair as a child, with recurrence in 2015 that was repaired robotically with mesh, and recurrence again with open repair with mesh in 2021 Family History Family History Father Diabetes mellitus Family history of Parkinson's disease Sibling Family history of lupus erythematosus Other Family history of arthritis Family history of chronic obstructive pulmonary disease Social History Social History Social History: The patient lives with his of 51 years. 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 He drinks alcohol on occasion and in moderation. He denies illicit substance use. He briefly when he was young. Code status: Full code Surrogate decision maker: Cece () Smoking packs per day: 2 Smoking cigarettes per day: 40.0 Years smoked: 5 Smoking pack-years: 10.00 Smoking status: Former smoker Tobacco type: cigarettes Smoking end date: 10/26/72 Alcohol intake: current Drinks per week: 5 Substance use: never Substance use type: does not use Do You Feel Safe in your Home?: Yes Lack of Transportation: No Lack of Food: Never True Current Housing: I Have Housing Concerned About Future Housing: No Difficulty Paying Gas/Electric Bills: No Difficulty Paying for Meds: No Currently Unemployed: No Education: Bachelor's Degree Difficulty w/ Childcare or Family Care: No Living arrangements: with family Additional living arrangements comments: Gender identity (if verbalized by the patient): Male Spiritual care concerns: No Comments At the time of my signature, I reviewed and agree with the nursing past medical, surgical, social, and family history. There is no relevant family history pertinent to the patient complaint. Exam Narrative: General: Well-developed, well nourished, in no apparent distress Head: Normocephalic, atraumatic Eyes: Pupils equally round and reactive to light bilaterally, EOM intact, sclera and conjunctive clear, no discharge, lids normal Ears: TMs intact and congested, ear canals clear, no drainage, grossly hearing normal. Nose: Nares patent, green nasal discharge, moderate inflammation, maxillary and frontal sinus tenderness. Mouth: Oral pharynx without lesions or masses, good dentition, MMM. Postnasal drip Neck: Supple, trachea midline, no enlargement of anterior or posterior cervical nodes, no thyroid masses or goiter palpable. Cardio: Regular rate and rhythm, s1 and s2 normal, no murmur appreciated. Resp: Expiratory rhonchi in the upper lung osorio with some faint wheezing in the bilateral posterior bases, no rales or rubs Course Course Emergency Course: Portions of this record may have been created with voice recognition software. Level of Care: Express Care Visit Vital Signs Vital signs: Vital signs reviewed MDM - URI/Sore Throat MDM Narrative Medical decision making narrative: At the time of visit patient is resting comfortably on the exam table. Patient appears to be nontoxic. Complaints of nasal congestion, sinus pressure, active cough, fatigue, and mild shortness of breath. He reports symptoms started about 2 weeks ago. Denies any known fever, chills, or body aches. States he just can not get over the cold. Cough is productive with some brown phlegm. Denies any chest pain. History bronchitis and pneumonia in the past. He is a former smoker. On exam patient has sinus pressure with sinus congestion-rhonchi in the upper osorio with some faint wheezing in the bases posteriorly. Chest x-ray was ordered. Diagnostics: Chest x-ray was negative for any acute cardiopulmonary process. Plan: I suspect patient has sinusitis/bronchitis. Prescription for Augmentin, albuterol inhaler, prednisone, and Tessalon Perles was sent to the pharmacy. Supportive measures were discussed with the patient and they voiced understanding discharge instructions and agrees to treatment plan. Return precautions reviewed Differential Diagnosis Differential diagnosis: Likely upper respiratory infection, otitis media, sinusitis, viral infection, bronchitis, influenza, pharyngitis and other (COVID) Imaging Data Radiologist's impression: ITS Impressions Chest X-Ray 12/13/24 09:39 IMPRESSION: No focal infiltrate or effusion. Discharge Plan Discharge Clinical Impression: Acute bacterial rhinosinusitis, Bronchitis Patient Disposition: Home Condition: Stable Instructions: Antibiotic Form, Sinusitis (ED), Acute Bronchitis (ED) Additional Instructions: Chest x-rays negative for any sign of pneumonia. Take prescription medications only as prescribed-albuterol inhaler, prednisone, Tessalon Perles, and Augmentin Increase fluids and stay well hydrated May take Tylenol or motrin as directed on bottle for pain/fever May use Flonase 1 spray in each nare daily May take OTC antihistamines such as Zyrtec or Claritin daily as directed on bottle May apply Vicks vapor rub to chest to open sinuses Sinus rinses for congestion Cepacol spray, cough drops, throat lozenges, warm tea with honey/lemon, gargle salt water to soothe throat BRAT diet for diarrhea Clear liquids x 24 hours then advance as tolerated for nausea/vomiting Go to the ED if you develop a worsening in your condition- high fever not controlled by Tylenol or Motrin, dehydration, weakness, lethargy, shortness of breath, or chest pain. Follow up with your PCP in 3-5 days if symptoms persist. Patient Language: French Prescriptions: New benzonatate 200 mg capsule 200 mg PO TID 7 Days Qty: 21 0RF prednisone 20 mg tablet 40 mg PO DAILY 5 Days Qty: 10 0RF albuterol sulfate 90 mcg/actuation HFA aerosol inhaler 2 puff inhalation Q4-6H PRN (Reason: shortness of breath or wheezing) 30 Days Qty: 8.5 0RF amoxicillin-pot clavulanate 875-125 mg tablet 1 tablet PO Q12H 10 Days Qty: 20 0RF No Action aspirin [Adult Aspirin Regimen] 81 mg tablet,delayed release (DR/EC) 81 mg PO DAILY cholecalciferol (vitamin D3) 50 mcg (2,000 unit) capsule 50 mcg PO DAILY ondansetron HCl 4 mg tablet 4 mg PO DAILY Qty: 90 1RF esomeprazole magnesium [Nexium] 40 mg capsule,delayed release(DR/EC) 40 mg PO BID Qty: 60 3RF famotidine 40 mg tablet 40 mg PO BID Qty: 60 3RF metoprolol succinate 50 mg tablet extended release 24 hr 50 mg PO QAM Qty: 90 3RF amlodipine 5 mg tablet 5 mg PO DAILY Qty: 90 0RF lisinopril 10 mg tablet 10 mg PO DAILY Qty: 90 1RF hydrochlorothiazide 12.5 mg capsule 12.5 mg PO DAILY Qty: 90 0RF metformin 500 mg tablet extended release 24 hr 500 mg PO DAILY Qty: 90 0RF Rx Instructions: TAKE 1 TABLET BY MOUTH EVERY DAY IN AM Follow-up/Referrals: Tariq Lambert MD [Primary Care Provider] - Time of Disposition: 09:45 Quality NIHSS Nursing Documentation ED NIHSS nursing documentation: reviewed/agree
[2024-12-13 09:11] VITALS: BP 142/69; PULSE 63; RESP 16; TEMP 36.9; O2SAT 100
== END 2024-12-13 09:47 | disposition home or self-care (01) ==
PROVIDERS: Emergency Provider Nurse Practitioner Family; PCP Family Medicine
DX: J01.90 Acute sinusitis, unspecified (principal); B96.89 Other specified bacterial agents as the cause of diseases classified elsewhere; J40 Bronchitis, not specified as acute or chronic; E11.9 Type 2 diabetes mellitus without complications; K21.9 Gastro-esophageal reflux disease without esophagitis; I10 Essential (primary) hypertension; Z87.891 Personal history of nicotine dependence
CPT/HCPCS: 71046; 99213; G0463

== ENCOUNTER 2024-12-22 00:31 | Day surgery (SDC) | payer MEDICARE, OTHER, SELFPAY ==
[2024-12-14 13:12] VITALS: BMI 28.8
[2024-12-22 12:53] VITALS: BP 147/59; PULSE 60; RESP 16; TEMP 36.2; O2SAT 99; BMI 28.4
--- NOTE | 2024-12-22 12:58 | P.PNAN_ITS ---
Anes - Initial Pre Proc Eval Procedure: Operation Date: 12/22/24 14:15 Proposed Procedures p EGD & Diagnostic Colonoscopy - Quincy Johnson MD Date/Time: 12/22/24 12:58 Surgeon: Quincy Johnson MD Pre Op Diagnosis: Nausea, Achalasia of cardia, GERD Patient Data Age: 74 Gender: M Height: 1.78 m Weight: 89.8 kg Last Vital Signs Temp 97.2 F L 12/22/24 12:53 Pulse 60 12/22/24 12:53 Resp 16 12/22/24 12:53 BP 147/59 H 12/22/24 12:53 Pulse Ox 99 12/22/24 12:53 O2 Del Method Room Air 12/22/24 12:53 Allergies Allergy/AdvReac Type Severity Reaction Status Date / Time No Known Allergies Allergy Verified 12/22/24 12:52 Home Medications ?Medication ?Instructions ?Recorded ?Confirmed ?Type aspirin 81 mg tablet,delayed 81 mg PO DAILY 12/24/19 0 12/22/24 History release (Adult Aspirin Regimen) cholecalciferol (vitamin D3) 50 50 mcg PO DAILY 12/22/24 History mcg (2,000 unit) capsule metoprolol succinate 50 mg 50 mg PO QAM #90 tabs 09/1312/22/24 Rx tablet,extended release 24 hr amlodipine 5 mg tablet 5 mg PO DAILY #90 tabs 10/1112/22/24 Rx lisinopril 10 mg tablet 10 mg PO DAILY #90 tabs 09/2612/22/24 Rx hydrochlorothiazide 12.5 mg capsule 12.5 mg PO DAILY # 90 caps 10/18/24 12/22/24 Rx metformin 500 mg tablet,extended 500 mg PO DAILY #90 t abs 10/18/24 12/22/24 Rx release 24 hr esomeprazole magnesium 40 mg 40 mg PO BID #60 caps 12/22/24 Rx capsule,delayed release (Nexium) famotidine 40 mg tablet 40 mg PO BID #60 tabs 12/22/24 Rx albuterol sulfate 90 mcg/actuation 2 puff inhalation Q 4-6H PRN 12/13/24 12/14/24 Rx aerosol inhaler shortness of breath or wheez ing 30 days #8.5 grams amoxicillin 875 mg-potassium 1 tablet PO Q12H 10 days #20 tabs 12/13/24 12/22/24 Rx clavulanate 125 mg tablet benzonatate 200 mg capsule 200 mg PO TID 7 days #21 ca ps 12/13/24 12/22/24 Rx ondansetron HCl 4 mg tablet 4 mg PO DAILY PRN nausea a nd 12/14/24 12/14/24 History vomiting Patient hx anesthesia problems: none Family hx anesthesia problems: none Results Review: All pre-operative results and documents have been reviewed as part of the pre- operative evaluation. [facility] Past Medical History Medical History Achalasia Diabetes Umbilical hernia Acquired deviated nasal septum Dyskinesia of esophagus Other seasonal allergic rhinitis Abdominal aortic aneurysm without rupture Diverticula of colon Benign esophageal stricture Esophageal diverticulum Benign familial tremor Cervicalgia GERD (gastroesophageal reflux disease) Obesity (BMI 30.0-34.9) Essential (primary) hypertension Other spondylosis, cervical region Unspecified asthma, uncomplicated Allergy induced Surgical History Surgical History History of appendectomy Laparoscopic 2024 History of esophageal dilatation Hx of LASIK History of esophageal hernia repair S/P inguinal hernia repair Right inguinal hernia repair as a child, with recurrence in 2015 that was repaired robotically with mesh, and recurrence again with open repair with mesh in 2021 Family History Family History Father Diabetes mellitus Family history of Parkinson's disease Sibling Family history of lupus erythematosus Other Family history of arthritis Family history of chronic obstructive pulmonary disease Social History Social History Social History: The patient lives with his of 51 years. 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 He drinks alcohol on occasion and in moderation. He denies illicit substance use. He briefly when he was young. Code status: Full code Surrogate decision maker: Cece () Smoking packs per day: 2 Smoking cigarettes per day: 40.0 Years smoked: 5 Smoking pack-years: 10.00 Smoking status: Former smoker Tobacco type: cigarettes Smoking end date: 10/26/72 Alcohol intake: current Drinks per week: 5 Substance use: never Substance use type: does not use Do You Feel Safe in your Home?: Yes Lack of Transportation: No Lack of Food: Never True Current Housing: I Have Housing Concerned About Future Housing: No Difficulty Paying Gas/Electric Bills: No Difficulty Paying for Meds: No Currently Unemployed: No Education: Bachelor's Degree Difficulty w/ Childcare or Family Care: No Living arrangements: with family Additional living arrangements comments: Gender identity (if verbalized by the patient): Male Spiritual care concerns: No Anes - Eval Final PreProcedure Day of Procedure 12/22/24 12:58 Patient weight: normal Heart: regular rate and rhythm Lungs: clear to auscultation Airway: Mallampati scale class II Neurological: alert and oriented Last oral intake: >/= 8 hours ASA classification: III Emergent: no Anesthetic plan: proceed Anesthesia type and monitoring: general GIVS and standard monitoring Results Review: All pre-operative results and documents have been reviewed as part of the pre- operative evaluation. Informed Consent: The patient's anesthetic plan and its attendant risks and benefits were discussed with the patient/family/POA. Questions were solicited and answers provided to the satisfaction of the patient/family/POA.
[2024-12-22] MEDS: LACTATED RINGERS 1,000 ML 150 ML IV CONT (13:01)
--- NOTE | 2024-12-22 14:03 | PM.IMHP ---
H&P: HPI History of Present Illness Date/Time: 12/22/24 14:03 Chief Complaint: screening colonoscopy Narrative: This is the patient's third colonoscopy, he had colonic polyps on prior colonoscopies however the last one, done in 2019 did not show any polyps.. There are no GI symptoms and there is no family history of colorectal cancer. Review of Systems Review of Systems: All systems reviewed & are unremarkable except as noted in HPI and below PMFSH Past Medical History Medical History Achalasia Diabetes Umbilical hernia Acquired deviated nasal septum Dyskinesia of esophagus Other seasonal allergic rhinitis Abdominal aortic aneurysm without rupture Diverticula of colon Benign esophageal stricture Esophageal diverticulum Benign familial tremor Cervicalgia GERD (gastroesophageal reflux disease) Obesity (BMI 30.0-34.9) Essential (primary) hypertension Other spondylosis, cervical region Unspecified asthma, uncomplicated Allergy induced Surgical History Surgical History History of appendectomy Laparoscopic 2024 History of esophageal dilatation Hx of LASIK History of esophageal hernia repair S/P inguinal hernia repair Right inguinal hernia repair as a child, with recurrence in 2015 that was repaired robotically with mesh, and recurrence again with open repair with mesh in 2021 Family History Family History Father Diabetes mellitus Family history of Parkinson's disease Sibling Family history of lupus erythematosus Other Family history of arthritis Family history of chronic obstructive pulmonary disease Social History Social History Social History: The patient lives with his of 51 years. 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 He drinks alcohol on occasion and in moderation. He denies illicit substance use. He briefly when he was young. Code status: Full code Surrogate decision maker: Cece () Smoking packs per day: 2 Smoking cigarettes per day: 40.0 Years smoked: 5 Smoking pack-years: 10.00 Smoking status: Former smoker Tobacco type: cigarettes Smoking end date: 10/26/72 Alcohol intake: current Drinks per week: 5 Substance use: never Substance use type: does not use Do You Feel Safe in your Home?: Yes Lack of Transportation: No Lack of Food: Never True Current Housing: I Have Housing Concerned About Future Housing: No Difficulty Paying Gas/Electric Bills: No Difficulty Paying for Meds: No Currently Unemployed: No Education: Bachelor's Degree Difficulty w/ Childcare or Family Care: No Living arrangements: with family Additional living arrangements comments: Gender identity (if verbalized by the patient): Male Spiritual care concerns: No Meds Home Medications and Allergies Home Medications ?Medication ?Instructions ?Recorded ?Confirmed ?Type aspirin 81 mg tablet,delayed 81 mg PO DAILY 12/24/19 12/22/24 History release (Adult Aspirin Regimen) cholecalciferol (vitamin D3) 50 50 mcg PO DAILY 12/24/19 12/22/24 History mcg (2,000 unit) capsule metoprolol succinate 50 mg 50 mg PO QAM #90 tabs 09/13/24 12/22/24 Rx tablet,extended release 24 hr amlodipine 5 mg tablet 5 mg PO DAILY #90 tabs 10/11/24 12/22/24 Rx lisinopril 10 mg tablet 10 mg PO DAILY #90 tabs 10/11/24 12/22/24 Rx hydrochlorothiazide 12.5 mg capsule 12.5 mg PO DAILY #90 caps 10/18/24 12/22/24 Rx metformin 500 mg tablet,extended 500 mg PO DAILY #90 tabs 10/18/24 12/22/24 Rx release 24 hr esomeprazole magnesium 40 mg 40 mg PO BID #60 caps 11/17/24 12/22/24 Rx capsule,delayed release (Nexium) famotidine 40 mg tablet 40 mg PO BID #60 tabs 11/17/24 12/22/24 Rx albuterol sulfate 90 mcg/actuation 2 puff inhalation Q4-6H PRN 12/13/24 12/14/24 Rx aerosol inhaler shortness of breath or wheezing 30 days #8.5 grams amoxicillin 875 mg-potassium 1 tablet PO Q12H 10 days #20 tabs 12/13/24 12/22/24 Rx clavulanate 125 mg tablet benzonatate 200 mg capsule 200 mg PO TID 7 days #21 caps 12/13/24 12/22/24 Rx ondansetron HCl 4 mg tablet 4 mg PO DAILY PRN nausea and 12/14/24 12/14/24 History vomiting Allergies Allergy/AdvReac Type Severity Reaction Status Date / Time No Known Allergies Allergy Verified 12/22/24 12:52 Vital Signs Vital Signs - 24 hr 12/22/24 12:53 Temperature 97.2 F L Pulse Rate 60 Respiratory Rate 16 Blood Pressure 147/59 H Pulse Oximetry 99 Oxygen Delivery Room Air Exam Const: General: cooperative and healthy appearing Resp: Effort & Inspection: normal respiratory effort and able to speak in complete sentences Auscultation: clear to auscultation bilaterally Cardio: Rate: regular rate Rhythm: regular rhythm GI: Inspection: normal to inspection GI Palp: No No hepatosplenomegaly present Auscultation: normal bowel sounds Rectal Exam: deferred Skin: General skin exam: normal color Psych: Appearance: grossly normal Mental Status: mental status grossly normal Assessment and Plan Assessment and plan (1) History of colon polyps: Code(s): Z86.010 - Personal history of colon polyps Status: Acute Assessment and Plan: The patient is deemed a good candidate for the procedure. Consent signed. Will proceed.
--- NOTE | 2024-12-22 14:29 | S_PTH ---
PATIENT: Malik Ann LOC: PER U#:[id number] AGE/SX: 74/M ROOM: RE12/22/[address]: Quincy Johnson MD : 1950 BED: DIS: 12/22/2024 SPEC #: [id number] RECD: 12/23/24 07:30 STATUS: VICTOR HUGO REQ #: [id number] FRANC: 12/22/24 14:[address]: Quincy Johnson DEPT: [facility] Surgical RECD BY: Cady Berg ENTERED: 12/23/24 07:30 SP TYPE: Surgical OTHR DR: Tariq Lambert MD Tissues: A - Colon Polypectomy Procedures: Hematoxylin and Eosin Stain Gross and Microscopic Level 4
[2024-12-22 14:34] VITALS: BP 134/34; PULSE 52; RESP 16; O2SAT 99
[2024-12-22 14:44] VITALS: BP 133/49; PULSE 53; RESP 17; O2SAT 100
[2024-12-22 14:54] VITALS: BP 147/42; PULSE 52; RESP 17; O2SAT 100
== END 2024-12-22 15:00 | disposition home or self-care (01) ==
PROVIDERS: PCP Family Medicine; Referring Provider Nurse Practitioner; Visit Provider Internal Medicine Gastroenterology
PROC: 0DJD8ZZ Inspection of Lower Intestinal Tract, Via Natural or Artificial Opening Endoscopic (ICD-10-PCS; CPT 45378; principal; 2024-12-22 14:15)
DX: Z12.11 Encounter for screening for malignant neoplasm of colon (principal); D12.0 Benign neoplasm of cecum; K64.8 Other hemorrhoids; K57.30 Diverticulosis of large intestine without perforation or abscess without bleeding; I10 Essential (primary) hypertension; J45.909 Unspecified asthma, uncomplicated; E11.9 Type 2 diabetes mellitus without complications; G25.0 Essential tremor; K21.9 Gastro-esophageal reflux disease without esophagitis; M47.892 Other spondylosis, cervical region; Z79.82 Long term (current) use of aspirin; Z79.84 Long term (current) use of oral hypoglycemic drugs; Z79.51 Long term (current) use of inhaled steroids; Z98.890 Other specified postprocedural states; Z87.891 Personal history of nicotine dependence; Z87.19 Personal history of other diseases of the digestive system
CPT/HCPCS: 45385; 82948; 88305; J2003; J2704; J7120

== ENCOUNTER 2025-02-10 14:44 | Outpatient (CLI) | payer MEDICARE, OTHER, SELFPAY ==
--- OUTSIDE RECORDS SUMMARY | 2000-06-04 19:00 | XMS_ITS | Continuity of Care Document ---
Author Organization [facility] [place] [address] [place] [address] [place] [address] Phone Care Team Providers Care Claim Auditor Name Role Phone [facility] Unavailable Unavail able Unavailable Unavailable Unavailable Advance Directives Directive Yes / No Effective Date File Name No Information Encounters Encounter Description Practice Location Reason(s) For Visit Diagnoses Date Provider Providers Copied on Encounter [facility], [address] [place] [address] [address], [place], [place], [id number], [place] tel:[phone] [facility] No Information [facility] [address], [address], [place], [place], [id number] , [place]. tel:[phone] Referring Provider: [address] [place], [address]. tel:[phone] Family History Family Member Type Diagnosis Age At Onset No Information Payers Payer name Insurance type Covered alliance party ID Authoriza tion(s) No Information Social History Type Description Quantity Date Captured Comments Sex Male Smoking Status No Information Chief Complaint And Reason For Visit No Information Reason For Referral Reason For Referral No Information History Of Present Illness Encounter Date Complaint History Of Prese nt Illness No Information Functional Status Date Functional Assessmen t No Information Instructions Date Instruction Additional Infor mation No Information Assessments Type Assessment Date No Information Patient Care Teams Name Effective Dates (start - stop) Status Members No Information
--- NOTE | 2025-02-10 15:15 | ECHO_ITS ---
Patient Info Name: Malik Ann Age: 74 years : 1950 Gender: Male Ht: 69 in Wt: 194 lbs BSA: 2.09 m2 HR: 52 bpm BP: 160 / 75 mmHg Technical Quality: Good Exam Date: 02/10/2025 3:25 PM Patient Status: O Admit Date: 02/10/2025 Exam Type: CA echo doppler w bubble study Complete two-dimensional, color flow and Doppler transthoracic echocardiogram is performed with agitated saline. Systems Technician: Robbin Centeno III Attending Provider: Tariq Lambert MD Contrast/Agitated Saline Contrast/Ag. Saline: Agitated Saline Amount: 12.00 ml Existing IV Access: No IV Access Condition: patent with no signs of infiltration New IV Access: Left Site Condition: IV removed Summary 1. Left ventricular chamber dimension is moderately enlarged. 2. Left ventricular systolic function is normal, estimated at 65-70. 3. The left ventricular diastolic function is abnormal. 4. E/e' 15 is elevated. 5. Left atrial chamber dimension is moderately enlarged. 6. There is mild aortic valve sclerosis. 7. There is mild aortic valve regurgitation. 8. The mitral valve has mildly thickened leaflets and severe posterior prolapse. 9. There is mild mitral valve regurgitation. Left Ventricle E/e' 15 is elevated. Left ventricular chamber dimension is moderately enlarged. Left ventricular systolic function is normal, estimated at 65-70. The left ventricular diastolic function is abnormal. Right Ventricle Right ventricular chamber dimension is normal. Right ventricular systolic function is normal. Left Atria Left atrial chamber dimension is moderately enlarged. Right Atria Right atrial chamber dimension is normal. Atrial Septum Intact interatrial septum visualized by 2D and agitated saline imaging. Agitated saline injection with and without valsalva maneuver opacified right side cardiac chambers without shunt to left side cardiac chambers. Aortic Valve The aortic valve is trileaflet. There is mild aortic valve sclerosis. There is no aortic valve stenosis. There is mild aortic valve regurgitation. Pulmonic Valve There is no pulmonic regurgitation. Mitral Valve The mitral valve has mildly thickened leaflets and severe posterior prolapse. There is no mitral valve stenosis. There is mild mitral valve regurgitation. Tricuspid Valve There is no tricuspid valve regurgitation. Pericardium/Pleural There is no pericardial effusion. Inferior Vena Cava Normal inferior vena cava with >50% collapse upon inspiration consistent with normal right atrial pressure, 5 mmHg. Aorta The aortic root size at the sinus of Valsalva is normal. Left Ventricular Outflow Tract Name Value Normal LVOT 2D LVOT Diameter 2.5 cm LVOT Doppler LVOT Peak Velocity 165 cm/s LVOT Peak Gradient 11 mmHg LVOT Mean Gradient 5 mmHg LVOT VTI 38 cm LVOT VTI/AV VTI Ratio 1.0 LVOT Stroke Volume 192 ml LVOT CO 9.4 l/min LVOT CI 4.5 l/min/m2 Pulmonic Valve Name Value Normal PV Doppler PV Peak Velocity 100 cm/s PV Peak Gradient 4 mmHg PV Mean Gradient 2 mmHg Mitral Valve Name Value Normal MV Doppler MV Peak Gradient 8 mmHg MV Mean Gradient 3 mmHg MV Area (Cont Eq VTI) 3.9 cm2 MV Diastolic Function MV E Peak Velocity 146 cm/s MV A Peak Velocity 101 cm/s MV E/A 1.4 MV Decel Time (PW) 276 ms MV Annular TDI MV E/e' (Septal) 16.1 MV E/e' (Lateral) 15.0 MV E/e' (Average) 15.5 Tricuspid Valve Name Value Normal Estimated PAP/RSVP RA Pressure 5 mmHg <=5 TV Annular TDI TV Lateral Coni s' Velocity 17.3 cm/s >=9.5 Aortic Valve Name Value Normal AV Doppler AV Peak Velocity 164 cm/s AV Peak Gradient 11 mmHg AV Mean Gradient 6 mmHg AV VTI 40 cm AV Area (Cont Eq VTI) 4.8 cm2 >=3.0 AV Area (Cont Eq Anselmo) 5.0 cm2 AV DI (Anselmo) 1.00 AV Regurgitation 2D LVOT Area 5.0 cm2 Ventricles Name Value Normal LV Dimensions 2D/MM IVS Diastolic Thickness (2D) 0.9 cm 0.6-1.0 LVID Diastole (2D) 6.5 cm 4.2-5.8 LVIW Diastolic Thickness (2D) 0.9 cm 0.6-1.0 LVID Systole (2D) 4.2 cm 2.5-4.0 LVOT Diameter 2.5 cm LV Mass (2D Cubed) 251.13 g 88.00-224.00 LV Mass Index (2D Cubed) 120 g/m2 49-115 Relative Wall Thickness (2D) 0.27 <=0.42 LV Fractional Shortening/Ejection Fraction 2D/MM LV Fractional Shortening (2D) 36 % 25-43 LV EF (2D Teichholz) 64 % LV Diastolic Volume (4C MOD) 223 ml LV EF (4C MOD) 70 % LV Diastolic Volume (2C MOD) 171 ml LV EF (2C MOD) 73 % LV Diastolic Volume (BP MOD) 197 ml 62-150 LV Diastolic Volume Index (BP MOD) 94 ml/m2 34-74 LV Systolic Volume (BP MOD) 58 ml 21-61 LV Systolic Volume Index (BP MOD) 28 ml/m2 11-31 LV EF (BP MOD) 71 % 52-72 LV Diastolic Length (4C) 8.7 cm LV Systolic Length (4C) 7.4 cm LV Stroke Volume (4C MOD) 157 ml Atria Name Value Normal LA Dimensions LA Volume (4C A-L) 84 ml LA Volume (BP A-L) 127 ml RA Dimensions RA Systolic Major Ledger Length (4C) 5.8 cm 2.1-2.7 RA Area (4C) 18.4 cm2 <=18.0 Report Signatures
--- OUTSIDE RECORDS SUMMARY | 2025-02-10 16:52 | XMS_ITS | Clinical Summary ---
Author Organization [facility] Address [address] [place] [address] Care Team Providers Care Director Of Sales Marketing Name Role Phone Tariq Lambert MD Primary Care Provider [phone] Source Comments [facility],non-owned Affiliates and Associated Physician Practices is amultiple site organization consisting of ambulatory clinics and hospital sitesin [place], [place], [place] and [place]. This disclosure is being madepursuant to the Care Everywhere program and may not contain all information available regarding this patient. Last updated 18.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 Gender Identity Not on file Sexual Orientation Not on file Plan of Treatment Upcoming Encounters Date Type Department Care Team (Late st Contact Info) Description 08/03/2025 10:30 AM CDT Office Visit [facility] - GI [address] [place] [address], [facility] [place] [phone] Demetrius Nesbitt MD [address] [place] [phone] Health Maintenance Due Date Last Done Comments COLOGUARD (AGES 45-75) - COL ON CA SCREENING 1950 COLON MONITORING 1950 COLONOSCOPY - COLON CA SCREENING 1950 CT COLONOGRAPHY - COLON CA SCREENING 1950 Colorectal Cancer Screening 1950 FIT - COLON CA SCREENING 1950 FLEX SIG - COLON CA SCREENING 1950 LIPID TESTING 1950 MEDICARE AWV 12 MONTHS 1950 HEPATITIS C SCREENING 05/09/1968 DTAP/TDAP/TD VACCINES (1 - Tdap) 1969 PNEUMOCOCCAL VACCINE 50+ (1 of 1 - PCV) 2000 ZOSTER VACCINE (1 of 2) 2000 DEPRESSION SCREENING 04/28/2024 COVID-19 VACCINE (1 - 2023-2 5 season) 2024 INFLUENZA VACCINE (#1) 2024 Respiratory Syncytial Virus (RSV) Vaccine Pt: or over 60 yrs (1 - 1-dose 75+ series) 2025 HEPATITIS B VACCINE Aged Out No longe r eligible based on patient's age to complete this topic HIB VACCINE Aged Out No longer eligi ble based on patient's age to complete this topic HPV VACCINE Aged Out No longer eligi ble based on patient's age to complete this topic MENINGOCOCCAL (Group B) VACC INE SHARED DECISION-MAKING Aged Out No longer eligibl e based on patient's age to complete this topic MENINGOCOCCAL GROUPS A/C/Y/W VACCINE Aged Out No longer eligible b ased on patient's age to complete this topic Insurance [employer] , [place] [employer] [employer] Member Subscriber Plan / Payer (Ef fective for All Dates) Name:AnnKimo Relation to Subscriber:Self Name:KIMO ANN Payer ID:Not on file Group ID:Not on file Type:Commercial Address: [facility] [address] [place], [place] [employer] Member Subscriber Plan / Payer (Ef fective for All Dates) Name:Kimo Ann Relation to Subscriber:Self Name:Kimo Ann Payer ID:Not on file Group ID:[id number] Type:Commercial Address: [facility] [address] [place], [place] SELF PAY NO INSURANCE Member Subscriber Plan / Payer (Ef fective for All Dates) Name:Kimo Ann Member ID:Not on file Relation to Subscriber:Not on file Name:CORKY ANNBerto Medrano Subscriber ID:Not on file (Home) Address: [address] [place] [id number] Payer ID:Not on file Group ID:Not on file Type:Self Pay Address: [place], [place] [employer] Member Subscriber Plan / Payer (Ef fective for All Dates) Name:Kimo Ann Member ID:Not on file Relation to Subscriber:Self Name:AnnKimo Subscriber ID:Not on file Payer ID:Not on file Group ID:Not on file Type:[employer] Address: [facility] [address] [place], [place] [address] [employer] Member Subscriber Plan / Payer (Ef fective for All Dates) Name:Kimo nAn Relation to Subscriber:Self Name:KIMO ANN Payer ID:Not on file Group ID:Not on file Type:Commercial Address: [address] MEDICARE Member Subscriber Plan / Payer (Ef fective for All Dates) Name:Kimo Ann Member ID:[id number] Relation to Subscriber:Self Name:CHRIS ANN Subscriber ID:[id number] Payer ID:Not on file Group ID:Not on file Type:Medicare Address: [place] [id number] [employer] Member Subscriber Plan / Payer (Ef fective for All Dates) Name:Corky Annberto Medrano Relation to Subscriber:Self Name:KIMO ANN Payer ID:Not on file Group ID:Not on file Type:Commercial Address: [address] MEDICARE Member Subscriber Plan / Payer (Ef fective for All Dates) Name:Corky Annd Marcela Member ID:[id number] Relation to Subscriber:Self Name:CHRIS ANN Subscriber ID:[id number] Payer ID:Not on file Group ID:Not on file Type:Medicare Address: [place] [phone] [employer] Member Subscriber Plan / Payer (Ef fective for All Dates) Name:Croky Annd Marcela Relation to Subscriber:Self Name:KIMO ANN Payer ID:Not on file Group ID:Not on file Type:Commercial Address: [address] [employer] Care Teams Director Of Sales Marketing Relationship Specialty Start Date End Date Tariq Lambert MD [address] [place] [phone] PCP - General 03/06/10
--- OUTSIDE RECORDS SUMMARY | 2025-02-10 16:52 | XMS_ITS | Clinical Summary ---
Author Organization [facility] Address [address] [place] [address] Phone Care Team Providers Care Nutrition Faculty Member Name Role Phone Tariq Lambert MD Primary Care Provider [phone] Social History Tobacco Use Types Packs/Day Years [...] (1 of 2) 2000 INFLUENZA VACCINE (#1) 2024 RSV VACCINE (60+ or ) (1 - 1-dose 75+ series) 2025 Care Teams Nutrition Faculty Member Relationship Specialty Start Date End Date Tariq Lambert MD [address] [place] [address] [address] [place] [address] PCP - General Family Practice 01/09/23
--- OUTSIDE RECORDS SUMMARY | 2025-02-10 16:52 | XMS_ITS | Clinical Summary ---
Author Organization [facility] Address [address] [place] [address] Care Team Providers Care Network Administrator Name Role Phone Tariq Lambert MD Primary Care Provider [phone] Rekha Espinosa NP Unavailable [phone] Luis Antonio Taylor MD Unavailable [phone] Allergies No known active allergies Medications metoprolol XL (TOPROL-XL) 50 mg extended release tablet Take 2 tablets (100 mg total) by mouth daily 3 Active lisinopriL (PRINIVIL,ZESTR IL) 10 mg tablet TAKE ONE TABLET BY MOUTH DAILY IN THE MORNING 3 Active amLODIPine (NORVASC) 5 mg tablet Take 1 tablet (5 mg total) by mouth daily 3 Active metFORMIN XR (GLUCOPHAGE XR) 500 mg 24 hr tablet Take 1 tablet (500 mg total) by mouth daily 3 Active hydroCHLOROthia zide (MICROZIDE) 12.5 mg capsule TAKE 1 CAPSULE ORALLY DAILY [address] (PROTONIX) 40 mg EC tablet 40 MG ORALLY TWICE A DAY 3 Active aspirin 81 mg enteric coated tablet Take 1 tablet (81 mg total) by mouth daily Ok to continue for 01/27 EGD Active cholecalciferol (VITAMIN D-3) 77955 unit capsule Take 1 capsule (10,000 Units total) by mouth daily Active multivitamin with minerals tablet Take 1 tablet by mouth daily Active oxyCODONE (ROXICODONE) 5 mg immediate release tabletIndicatio ns:Pain Take 1 tablet (5 mg total) by mouth every 4 (four) hours as needed for pain 10 tablet 3 Active Additional Information Patient not taking.Reported on 11/01/2024 acetaminophen 500 mg capsule Take 1 capsule (500 mg total) by mouth every 6 (six) hours as needed for pain 60 capsule 3 Active ondansetron (ZOFRAN) 4 mg tablet Take 1 tablet (4 mg total) by mouth every 8 (eight) hours as needed for nausea or vomiting Active Active Problems Patient Care Coordination No [...] quit 1972. He underwent an EGD at [facility] on 12/16/2022 with the following findings: A [...] on 02/20/2023 which reveals the following: FINDINGS: Statement Request Clerk radiograph was unremarkable. Patient ingested thick barium. [...] approximally 4 cm cephalad to the diaphragm. Statement Request Clerk radiographs were performed approximally 10- 20 minutes [...] is here for further evaluation and discussion. Danita Baca NP 10/26/2024 1544 This is a 74-year-old male patient presenting back to the clinic today due to concern about recent onset of esophageal irritation and spasms. He denies any swallowing difficulty. He reports nausea almost daily. He underwent a Heller myotomy on 04/16/[address] Christine. He was initially referred to clinic by Dr. Luis Antonio Taylor. He previously underwent an esophagoscopy with balloon dilation on 02/04/2024 due to difficulty swallowing. He is here for further evaluation and discussion. 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 [address] [place] [phone] Marium Quinones RN 11/24/[address] [facility] [address] [place] [phone] Marium Quinones RN 11/23/[address] [facility] [address] [place] [phone] Marium Quinones RN 11/23/[address] [facility] [address] [place] [phone] Sajan Lilly RN 11/11/2024 12:26 PM CDT - 11/11/2024 11:59 PM CDT Hospital Encounter [facility] [address] [place] [phone] Achalasia; Epiphrenic diverticulum Discharge Disposition: Discharge to home or self care from Last 3 Months Surgical History Surgery Date Site/Laterality Comments INGUINAL HERNIA REPAIR Right multiple recurrences ESOPHAGEAL DILATION 01/26/2023 - 02/25/2023 LAPAROSCOPIC HELLER MYOTOMY 04/28/2022 - 04/27/2023 APPENDECTOMY 08/25/2024 UPPER GASTROINTESTINAL ENDOSCOPY 12/16/2022 large pseudo diverticula, small hiatal hernia, moderate stenosis dialated. Medical History Medical History Date Comments GERD (gastroesophageal reflux disease) Esophageal diverticulum Large es ophageal diverticuli Sigmoid diverticulum Sigmoid div erticuli Colon polyps Benign familial tremor Cervicalgia Covid-19 AAA (abdominal aortic aneurysm) Followed by Betina Su MD. No further workup or surveillance screening is required. Follow-up with me on a p.r.n. basis per last office note on 10/2017 Type 2 diabetes mellitus Obesity Achalasia Esophageal stricture Family History Medical History Relation Name Comments Diabetes Father Parkinsonism Father Lupus Other Relation Name Status Comments Father Mother Other Social History Tobacco Use Types Packs/Day Years Used Date Smoking Tobacco: Former Cigarettes 2 5 0 10/27/1967 - 10/26/1972 Smokeless Tobacco: Never Tobacco Cessation:Counseling Given: Not Answered [facility] Utilities Answer Date Recorded In the past 12 months has e [employer], gas, oil, or water company threatened to shut off services in your home? No 04/17/2023 Social Connection and Isolation Panel Answer Date Recorded In a typical week, how many times do you talk on the phone with family, friends, or neighbors? More than three times a week 04/17/2023 How often do you get togethe r with friends or relatives? More than three times a week 04/17/2023 How often do you attend chur ch or congregational services? Never 04/17/2023 Do you belong to any clubs o r organizations such as buddhist groups, unions, fraternal or athletic groups, or [...] place to sleep or slept in a residential (including now)? No 04/17/2023 Personal Safety Answer [...] Sign Reading Time Taken Comments Blood Pressure 127/65 11/01/2024 2:38 PM CDT Pulse 51 11/01/2024 2:38 PM CDT Temperature 36.3 C (97.3 F) 11/01/2024 2:38 PM CDT Respiratory Rate 18 11/01/2024 2:38 PM CDT Oxygen Saturation 98% 11/01/2024 2:38 PM CDT Inhaled Oxygen Concentration - - Weight 94.4 kg (208 lb 1.8 oz) 11/01/2024 2:38 P M CDT Height 175 cm (5' 8.9) 11/01/2024 2:38 PM CDT Body Mass Index 30.82 11/01/2024 2:38 PM CDT Plan of Treatment Health Maintenance Due Date Last Done Comments Colon Cancer Screening-Colonoscopy 1950 Depression Screening 1950 Hepatitis C Screening 1950 DTaP/Tdap/Td Vaccine (1 - Tdap) 1961 Hepatitis B Screening 1968 Pneumococcal vaccine 65+ (1 of 1 - PCV) 2000 Zoster Vaccine (1 of 2) 2000 Well Visit 65+ 2015 Influenza Vaccine (#1) 2024 Fall Risk Assessment 01/15/2025 01/16/2024 Abdominal Aortic Aneurysm (A AA) Screen Completed 11/20/2017, 11/14/2017, 11/14/2017, Additional history exists Procedures Procedure Name Priority Date/Time Associated Diagnosis Comments FL ESOPHAGRAM, DOUBLE CONTRAST Schedule KATHE, Read Routine (Patient lives out of area) 11/11/2024 1:00 PM CDT Achalasia Epiphrenic diverticulum CTA ABDOMEN PELVIS W WO CONTRAST Routine 11/14/2017 12:00 AM CDT from Last 3 Months or Most Recently Relevant to Health Maintenance Results * FL Esophagram, Double Contrast (11/11/2024 1:00 PM CDT) Anatomical Region Laterality Modality Body N/A Computed Radiogr aphy, Computed Radiography 11/11/2024 1:04 PM CDT Narrative 11/11/2024 1:12 PM CDT EXAM DESCRIPTION: FL ESOPHAGRAM BARIUM SWALLOW TO STOMACH, DOUBLE CONTRAST REASON FOR STUDY: Dysphagia, known cause RADIATION DOSE: Dose: 495.27 uGym2 Dose Area Product (DAP) TECHNIQUE: Under fluoroscopic guidance, patient ingested effervescent granules followed by thick and thin barium. COMPARISON: 01/09/2024, 04/17/2023, 02/20/2023. FINDINGS: Limited evaluation of the pharynx demonstrates no aspiration or penetration. There is a small amount of oropharyngeal residue Mucosal relief image is suboptimal due to suboptimal distention of the esophagus. In the evaluated portions, no ulceration is seen. Anterior mid to distal esophagus diverticulum is grossly unchanged. A posteriorly directed diverticulum at the distal esophagus is similar to 01/09/2024. At the same level, a an anterior directed diverticulum appears grossly similar. Non propulsive esophageal contractions are redemonstrated.. There is a small hiatal hernia.. The duodenal course is normal. No extraluminal contrast is seen. No significant delay in emptying of contrast from the esophagus IMPRESSION: No substantial change in multiple mid to distal esophageal diverticuli. Redemonstrated non-propulsive esophageal contractions. No substantial delay in emptying of the esophagus. THIS IS AN ELECTRONICALLY VERIFIED FINAL REPORT 11/11/2024 1:12 PM - Electronically signed by Yaniv Delatorre M.D. MZ: PARDEEP Report ID: [id number] Reading Location: [place] [address] Procedure Note Yaniv Delatorre MD - 11/11/2024 EXAM DESCRIPTION: FL ESOPHAGRAM BARIUM SWALLOW TO STOMACH, DOUBLECONTRAST REASON FOR STUDY: Dysphagia, known cause RADIATION DOSE: Dose: 495.27 uGym2 Dose Area Product (DAP) TECHNIQUE: Under fluoroscopic guidance, patient ingested effervescentgranules followed by thick and thin barium. COMPARISON: 01/09/2024, 04/17/2023, 02/20/2023. FINDINGS: Limited evaluation of the pharynx demonstrates no aspiration or penetration. There is a small amount of oropharyngeal residue Mucosal relief image is suboptimal due to suboptimal distention of the esophagus. In the evaluated portions, no ulceration is seen. Anteriormid to distal esophagus diverticulum is grossly unchanged. A posteriorlydirected diverticulum at the distal esophagus is similar to 01/09/2024. At thesame level, a an anterior directed diverticulum appears grossly similar. Non propulsive esophageal contractions are redemonstrated.. There is a small hiatal hernia.. The duodenal course is normal. No extraluminal contrastis seen. No significant delay in emptying of contrast from the esophagus IMPRESSION: No substantial change in multiple mid to distal esophageal diverticuli. Redemonstrated non-propulsive esophageal contractions. No substantialdelay in emptying of the esophagus. THIS IS AN ELECTRONICALLY VERIFIED FINAL REPORT 11/11/2024 1:12 PM - Electronically signed by Yaniv Delatorre M.D. MZ: PARDEEP Report ID: [id number] Reading Location: [id number] Danita Baca NP IMG FLUOROSCOPY PROCEDURES Final Result * CTA Abdomen Pelvis (11/14/2017 12:00 AM [...] Osmany Tinoco M.D. JA: ITALO Report ID: [id number] Reading Location: [id number] [EOD] Narrative 11/14/2017 1:49 PM CDT EXAM [...] Osmany Tinoco M.D. JA: ITALO Report ID: [id number] Reading Location: [id number] [EOD] Jose Raul Su MD IMG CT PROCEDURES Final Re sult from Last 3 Months or Most Recently Relevant to Health Maintenance Insurance [employer] Member Subscriber Plan / Payer ( fective 2015-Present) Name:Malik Ann Relation to Subscriber:Self Name:Denys Annderkatelin Bower Payer ID:[id number] Group ID:[id number] Type:COMMERCIAL Address: [facility] [address] [place], [place] MED[employer] Member Subscriber Plan / Payer ( fective 2015-) Name:Denys Annnick Bower Relation to Subscriber:Self Name:Denys Annderick Sathish Payer ID:[id number] Group ID:Not on file Type:COMMERCIAL Address: [facility] [address] [place], [place] Advance Directives For more information, please contact: [phone] * Full Code (Latest Code Status on File) Date Activated Date Inactivated Comments 04/16/2023 6:29 PM 04/17/2023 6:42 PM Care Teams Network Administrator Relationship Specialty Start Date End Date Tariq Lambert MD [address] [place] [address] PCP - General Family Medicine 01/17/23 [place] [address] [place] [address] [address] [place] [address] Nurse Practitioner Nurse Practitioner 02/10/23 Luis Antonio Taylor MD [address] [facility] [address] [place] [address] Referring Physician Gastroenterology 03/31/23
== END 2025-02-10 14:45 | disposition home or self-care (01) ==
PROVIDERS: PCP Family Medicine; Visit Provider Family Medicine
DX: R01.1 Cardiac murmur, unspecified (principal); I34.0 Nonrheumatic mitral (valve) insufficiency; I35.1 Nonrheumatic aortic (valve) insufficiency
CPT/HCPCS: 93306; 96375